=== PATIENT | male | born 1955 | race Caucasian/White ===

== ENCOUNTER 2016-06-03 00:56 | Inpatient (IN) | payer MEDICARE ==
[2016-06-03] VITALS (7 sets, daily range): BP systolic 154–167; BP diastolic 90–113
[~2016-06-03] VITALS: Ht 175.2 cm; Wt 124.4 kg
--- NOTE | ~2016-06-03 | DS ---
[place], [place] DISCHARGE SUMMARY NAME: WILDER NEELY UNIT #: [id number] ROOM: 526 DOCTOR: JENNIFER CHENG MD BIRTHDATE: [birth year] DOS: 06/07/2016 DIAGNOSES: 1. Small-bowel obstruction, resolved with conservative management. 2. History of laparotomy, colectomy and colostomy for diverticulitis. Colostomy has been reversed. 3. Major depression, moderate to severe. 4. Coronary artery disease of [place] coronary. 5. History of cerebrovascular accident in 2008. 6. Benign hypertension. 7. Parkinson's disease. 8. Degenerative joint disease. 9. Overactive bladder. 10. Chronic low back pain. MEDICATIONS: The same as on admission, no new prescriptions have been given. Lamictal 25 b.i.d., carbidopa/levodopa 25/250 t.i.d., cyclobenzaprine 10 twice a day, Plavix 75 daily, Pravachol 20 daily, lisinopril 20 daily, duloxetine 60 mg hs, Latuda 40, hydroxyzine 50 q.8h., vitamin D 50,000 units weekly, orphenadrine citrate 100 mg twice daily p.r.n. HOSPITAL COURSE: The patient is known to me from previous admissions, comes in with complaints of severe abdominal pain, nausea, emesis. Please refer H and P for details. After admission, the patient was placed on IV fluids, antibiotics, NG tube suctioning. Dr. Davey was consulted. He was continued NG suctioning for the next several days. His acute abdominal series has shown slow improvement in his obstruction. He has had a bowel movement yesterday after a suppository was given and he is no longer nauseous, abdominal pain has subsided. NG tube has since been discontinued and the patient continues to improve. He is going to be started on a regular diet this morning. If he tolerates the diet, he should be able to go home today and continue with home medication and follow with his PCP as an outpatient. [place], [place] DISCHARGE SUMMARY NAME: WILDER NEELY UNIT #: [id number] ROOM: 526 DOCTOR: JENNIFER CHENG MD BIRTHDATE: [birth year] JENNIFER CHENG MD CM:STEFAN [id number] JENNIFER CHENG MD 07/10/16 1436 interface
--- NOTE | ~2016-06-03 | PR ---
[place], [place] PROGRESS NOTE NAME: [id number] UNIT #: [id number] ROOM: 526 DOCTOR: JENNIFER CHENG MD BIRTHDATE: [birth year] DOS: 06/05/2016 SUBJECTIVE: The patient continues to have abdominal pain. His repeat acute abdominal series just continues to show small-bowel obstruction. OBJECTIVE: VITAL SIGNS: Graphic trend shows pressure of 154/87, pulse of 100, respirations 20, temperature 97.6. LUNGS: Diminished breath sounds, but clear. HEART: Regular. ABDOMEN: Obese, soft, diffuse tenderness. EXTREMITIES: Without any edema. Bowel sounds hypoactive. LABORATORY DATA: Showed a white cell count of 6.6, hemoglobin 15.2, hematocrit 44.2. BMP: Glucose of 84, BUN 13, creatinine 0.93. Electrolytes were normal. ASSESSMENT AND PLAN: 1. Small-bowel obstruction. The patient is on conservative management right now with NG suctioning. Discussed with Dr. Davey. If it does not open up by tomorrow morning, he plans to take him for surgery. 2. N.p.o. status. The patient is maintained on IV fluids. We will change the IV fluids and include some glucose also. 3. History of diverticulitis and colectomy, colostomy in the past, possible adhesions, which is resulting in the ileus. 4. Major depression, moderate to severe, already on medications to be continued. JENNIFER CHENG MD CM:PNTRANS [phone] JENNIFER CHENG MD 06/05/16 2344 interface
--- NOTE | ~2016-06-03 | WRIGHTHP ---
[place], [place] PATIENT HISTORY AND PHYSICAL EXAM NAME: WILDER NEELY [facility] #: [id number] UNIT #: [id number] ROOM: 526 DOCTOR: JENNIFER CHENG MD BIRTHDATE: [birth year] DOS: 06/03/2016 HISTORY OF PRESENT ILLNESS: The patient is 60 years old. The patient comes in with complaints of severe nausea and abdominal pain. The patient was last admitted to the hospital in 2015 to the Behavioral Health Unit with depression. The patient states that he ate 2 baloney sandwiches yesterday. He did not eat anything else. By evening, his abdomen was starting to get quite painful and he started having nausea, had a few emesis. The pain got worse and because of his previous surgery, he decided to come into the Emergency Room where he was evaluated and was found to have bowel obstruction and so he was admitted to the hospital. This morning does have some minimal abdominal discomfort, does not have any chest pains or palpitations, does not have any fever or chills, does not have any diarrhea. PAST MEDICAL HISTORY: Significant for, 1. History of laparotomy and colectomy for diverticulitis. He had a colostomy one time. 2. Major depression, moderate to severe with a hospitalization last year under Dr. Konstantin hatch [facility]. 3. Coronary artery disease of [place] coronaries. 4. History of CVA in 2008. 5. Benign hypertension. 6. Parkinson's disease. 7. Degenerative joint disease. 8. Overactive bladder. 9. Chronic low back pain. MEDICATIONS: Medications that he is on, this list is not a current list. The is supposed to bring the list, but he is on Plavix, duloxetine, hydroxyzine, Sinemet, Lamictal, lisinopril, Latuda, Pravachol. SOCIAL HISTORY: History of smoking. Denies using any alcohol. He lives at home with his . PHYSICAL EXAMINATION: GENERAL: He is awake and alert and oriented. VITAL SIGNS: Graphic shows a pressure of 154/96, pulse of 87, respirations 20, temperature 97.8. LUNGS: Diminished breath sounds. No wheezes, rales, or rhonchi heard. HEART: Regular. ABDOMEN: Obese, soft. Multiple scars from previous surgery present. Bowel sounds are hypoactive, but present. EXTREMITIES: Without any edema. LABORATORY AND DIAGNOSTIC DATA: His labs on admission: CT of the abdomen and pelvis shows dilated fluid-filled loops of small bowel. Comprehensive: Glucose of 123, BUN 21, creatinine 1.31. Electrolytes were normal. CK 1122. Chest x-ray shows no pulmonary disease. White cell count is 10.5, hemoglobin 16.9. Lactic acid 1.1. [place], [place] PATIENT HISTORY AND PHYSICAL EXAM NAME: WILDER NEELY UNIT #: [id number] ROOM: 526 DOCTOR: JENNIFER CHENG MD BIRTHDATE: [birth year] ASSESSMENT AND PLAN: 1. A 60-year-old presents with nausea, vomiting, and abdominal pain from small bowel obstruction. NG tube has been placed. The patient has been kept n.p.o., IV fluids have been ordered. A consultation with Dr. Davey has been obtained, most likely has adhesions from his previous surgeries resulting in the obstruction. 2. History of colectomy, colostomy in the past, possibly has adhesions. 3. Benign hypertension, not very well controlled. Clonidine patch will be started since he is n.p.o. 4. Major depression, moderate to severe with suicidal tendencies in the past. I will restart his Latuda and Cymbalta. 5. Renal insufficiency. GFR 56, possibly prerenal azotemia. IV fluids have been ordered, recheck the labs again tomorrow. 6. Elevated CKs of unknown etiology. We will hold off on the Pravachol for right now. JENNIFER CHENG MD CM:HISPHYS:PATIENT HISTORY AND PHYSICAL EXAMINATION [phone] JENNIFER CHENG MD 07/10/16 3448 interface
--- NOTE | ~2016-06-03 | PR ---
[place], [place] PROGRESS NOTE [id number] UNIT #: [id number] ROOM: 526 DOCTOR: JENNIFER CHENG MD BIRTHDATE: [birth year] DOS: 06/06/2016 SUBJECTIVE: The patient is continuing to have some minimal abdominal discomfort, but he did have a tight stenosis. The patient continues to have abdominal pain, but he did have a bowel movement and he is also having a lot of belching and burping this morning. OBJECTIVE: VITAL SIGNS: Blood pressure is 132/88, pulse of 76, respirations 20, temperature 98.5. LUNGS: Diminished breath sounds, clear. HEART: Regular. ABDOMEN: Obese, soft. Hypoactive bowel sounds. ASSESSMENT AND PLAN: 1. Small-bowel obstruction. The patient's pain medications were increased yesterday and he is going to have an acute abdominal series. Since he had a BM, it is possible that his small-bowel obstruction is improving and that we could discontinue the NG tube at that time. 2. Benign hypertension, not very well controlled because he is n.p.o. We had to give labetalol yesterday to control his pressure. Once NG tube is discontinued, we can start his home medications. JENNIFER CHENG MD CM:PNTRANS [id number] JENNIFER CHENG MD 06/07/16 0045 interface
--- NOTE | ~2016-06-03 | PR ---
[place], [place] PROGRESS NOTE NAME[id number] UNIT #: [id number] ROOM: 526 DOCTOR: JENNIFER CHENG MD BIRTHDATE: [birth year] DOS: SUBJECTIVE: The patient is doing fine without any complaints. He did have a bowel movement yesterday and continues to have flatulence. PHYSICAL EXAMINATION: VITAL SIGNS: Graphic trend shows a pressure of 127/86, pulse of 86, respirations 20, and temperature 98.8. LUNGS: Diminished breath sounds, clear. HEART: Regular. ABDOMEN: Soft, some minimal tenderness all over. EXTREMITIES: Without any edema. ASSESSMENT AND PLAN: Small-bowel obstruction, improved with conservative treatment plan. The patient's NG tube has been discontinued. We will start him on a diet this morning, and if he is able to tolerate it without any emesis we should be able to discharge him to home today. JENNIFER CHENG MD CM:PNTRANS 9 [phone] JENNIFER CHENG MD 06/07/161909 interface
--- NOTE | ~2016-06-03 | PR ---
[place], [place] PROGRESS NOTE [facility]: [id number] UNIT #: [id number] ROOM: 526 DOCTOR: JENNIFER CHENG MD BIRTHDATE: [birth year] DOS: SUBJECTIVE: The patient is doing fine without any complaints other than his abdominal pain. He does have some minimal nausea. He still has NG drainage. OBJECTIVE: VITAL SIGNS: Blood pressure is 132/90, pulse of 89, respirations 20, temperature 98.5. LUNGS: Diminished breath sounds. HEART: Regular. ABDOMEN: Soft, hypoactive bowel sounds. EXTREMITIES: Without any edema. ASSESSMENT AND PLAN: 1. Small bowel obstruction. Awaiting acute abdominal series this morning. If it looks better, we can discontinue the NG tube. Discussed with Dr. Davey and the patient 2. Benign hypertension. Pressures are running a little high, possibly from not taking his home medications. Because of his n.p.o. status, he is on clonidine patch. We will continue to monitor that. Routine labs to be ordered for tomorrow. JENNIFER CHENG MD CM:PNTRANS [id number] JENNIFER CHENG MD 07/10/16 1440 interface
[~2016-06-03 00:56] MED LIST: ALLOPURINOL300 MG PO; ANUCORT HC25 MG RC; AQUASOL E PO; ASPIR-LOW81 MG PO; ASPIRIN81 M1 PO; ATARAX,VISTARIL50 MG PO; ATIVAN0.5 MG PO; ATIVAN1 MG PO; B121000 MCG/1 IM; BRIN20TA PO; CARBIDOPA AND L1 TAB PO; CARBIDOPA PO; CIPRO XR500 MG PO; CIPRO500 MG PO; COLCHICINE0.6 MG PO; COREG12.5 MG PO; CYCLOBENZAPRINE10 MG PO; Clopidogrel75 MG PO; DIAZEPAM2 MG PO; DITROPAN5 MG PO; DIVALPROEX DR500 MG PO; DOXYCYCLINE100 M3 PO; DULOXETINE HCL60 MG PO; E-400400 IU PO; EXELON4.6 MG/24 TD; FLAGYL500 MG PO; FLEXERIL10 MG PO; HALDOL2 MG PO; HYDROCODONE BIT1 T11 PO; IMITREX25 MG PO; INDOCIN SR75 MG PO; LAMICTAL ODT25 MG PO; LAMICTAL ODT50 MG MM; LAMICTAL XR25 MG PO; LAMICTAL25 MG PO; LAMOTRIGINE100 MG PO; LAMOTRIGINE150 MG PO; LAMOTRIGINE200 MG PO; LATU120T PO; LATU40TA PO; LIPITOR10 MG PO; LIPITOR20 MG PO; LISINOPRIL20 MG PO; LISINOPRIL40 MG PO; LODOSYN25 MG PO; LOPRESSOR25 MG PO; LOPRESSOR50 MG PO; LORAZEPAM1 MG PO; MACROBID100 M1 PO; MEDROL DOSEPAK4 MG PO; METOPROLOL25 MG PO; MIRALAX17 GM/DOSE PO; MIRTAZAPINE PO; MIRTAZAPINE15 M1 PO; MIRTAZAPINE15 MG PO; MIRTAZAPINE45 MG PO; MOTRIN800 MG PO; MS CONTIN30 MG PO; NAPROXEN500 M1 PO; NORCO 325 MG-101 TAB PO; OMEPRAZOLE40 MG PO; OXYBUTYNIN CHLOR5 MG PO; OXYBUTYNIN5 MG PO; Orphenadrine C100 MG PO; PANTOPRAZOLE40 M1 PO; PERPHENAZINE4 MG PO; PHENOBARBITAL15 MG PO; PHENOBARBITAL30 MG PO; PLAVIX75 MG PO; PRAVACHOL10 MG PO; PRAVASTATIN SOD20 MG PO; PREDNISONE10 MG PO; REMERON30 MG PO; SALINE MIST 4444 ML NS; SEROQUEL XR50 MG PO; SIMVASTATIN40 MG PO; SIMVASTATIN80 MG PO; SINEMET 25-1001 TA1 PO; TOVIAZ4 MG PO; TRAMADOL HCL50 MG PO; TRAMADOL50 MG PO; TRUSOPT 5 ML5 ML OPH; TYLENOL 8 HOUR650 MG PO; ULTRAM50 MG PO; VALIUM10 MG PO; VALIUM2 MG PO; VASOTEC10 MG PO; VICO75300 PO; VITAMIN D2000 IU PO; VITAMIN D50000 I2 PO; VITAMIN D50000 I3 PO; XALATAN 0.005%2.5 ML INTRAOC; ZESTRIL,PRINIVIL5 MG PO; ZOFRAN ODT8 MG PO; [UNRECOGNIZED DRUG - OTHER] PO
[2016-06-03 01:27] LABS: BASO % 0.4 % (0.0-1.0); EOS # 0.2 10*3/uL (0.0-0.4); EOS % 1.8 % (1.0-4.0); HEMATOCRIT 48.5 % (42.0-52.0); HEMOGLOBIN 16.9 g/dl (14.0-18.0); LYMPH # 1.5 10*3/uL (1.3-4.4); LYMPH % 13.8 % (27.0-41.0); MEAN CELL VOLUME 85.5 fl (80.0-94.0); MEAN CORPUSCULAR HGB 29.8 pg (27.0-31.0); MEAN CORPUSCULAR HGB CONC 34.8 g/dl (33.0-37.0); MEAN PLATELET VOLUME 9.3 fl (9.6-12.3); MONO # 0.9 10*3/uL (0.1-1.0); MONO % 8.5 % (3.0-9.0); NEUT # 7.9 10*3/uL (2.3-7.9); NEUT % 75.1 % (47.0-73.0); PLATELET COUNT AUTOMATED 244 10*3/uL (130-400); RED BLOOD COUNT 5.67 10*6/uL (4.50-5.90); RED CELL DISTRI WIDTH 12.8 % (0-14.5); WHITE BLOOD COUNT 10.5 10*3/uL (4.8-10.8)
[2016-06-03 01:40] LABS: PROTHROMBIN TIME 10.2 SECONDS (9.0-12.4)
[2016-06-03 01:55] LABS: ALBUMIN 4.3 gm/dl (3.1-4.5); ALKALINE PHOSPHATASE 68 U/L (45-117); BILIRUBIN, TOTAL 0.5 mg/dl (0.2-1.0); BUN 21 mg/dl (7-24); C-REACTIVE PROTEIN 0.88 MG/DL (0-0.3); CARBON DIOXIDE 26 mmol/L (21-32); CHLORIDE 105 mmol/L (98-107); CKMB 4.9 ng/ml (0.5-3.6); CPK 1122 U/L (39-308); EST GLOM FILT AFRICAN AMERICAN > 60 ml/min; GLUCOSE 123 mg/dL (65-99); MAGNESIUM 2.1 mg/dL (1.5-2.1); SGOT/AST 25 IU/L (3-35); SGPT/ALT 27 U/L (12-78); SODIUM 140 mmol/L (136-145); TOTAL PROTEIN 8.1 gm/dL (6.4-8.2); TROPONIN I < 0.015 ng/ml (<0.5)
[2016-06-03 02:29] LABS: BILIRUBIN NEGATIVE (NEGATIVE); BLOOD TRACE-INTACT (NEGATIVE); CLARITY CLEAR (CLEAR); COLOR YELLOW (YELLOW); GLUCOSE NEGATIVE (NEGATIVE); KETONE TRACE (NEGATIVE); LEUKO ESTERASE NEGATIVE (NEGATIVE); NITRITE NEGATIVE (NEGATIVE); PH 5.5 (5.0-9.0); PROTEIN NEGATIVE (NEGATIVE)
[2016-06-03 02:39] LABS: BACTERIA 2+; URINE REFLEX COMMENT YES (NO)
[2016-06-04] VITALS: BP 132/90
[2016-06-04 12:00] VITALS: BP 162/98
[2016-06-04 16:00] VITALS: BP 160/92
[2016-06-05] VITALS: BP 154/87
[2016-06-05 06:35] LABS: BASO % 0.5 % (0.0-1.0); EOS # 0.4 10*3/uL (0.0-0.4); EOS % 5.5 % (1.0-4.0); HEMATOCRIT 44.2 % (42.0-52.0); HEMOGLOBIN 15.2 g/dl (14.0-18.0); LYMPH # 1.4 10*3/uL (1.3-4.4); LYMPH % 21.1 % (27.0-41.0); MEAN CORPUSCULAR HGB 29.9 pg (27.0-31.0); MEAN CORPUSCULAR HGB CONC 34.4 g/dl (33.0-37.0); MEAN PLATELET VOLUME 9.4 fl (9.6-12.3); MONO # 0.6 10*3/uL (0.1-1.0); NEUT # 4.2 10*3/uL (2.3-7.9); NEUT % 63.6 % (47.0-73.0); PLATELET COUNT AUTOMATED 208 10*3/uL (130-400); RED BLOOD COUNT 5.08 10*6/uL (4.50-5.90); RED CELL DISTRI WIDTH 12.6 % (0-14.5); WHITE BLOOD COUNT 6.6 10*3/uL (4.8-10.8)
[2016-06-05 07:08] LABS: BUN 13 mg/dl (7-24); CARBON DIOXIDE 28 mmol/L (21-32); CHLORIDE 106 mmol/L (98-107); EST GLOM FILT AFRICAN AMERICAN > 60 ml/min; GLUCOSE 84 mg/dL (65-99); SODIUM 142 mmol/L (136-145)
[2016-06-05 08:00] VITALS: BP 154/88
[2016-06-05 12:00] VITALS: BP 150/88
[2016-06-05 20:26] VITALS: BP 160/110
[2016-06-06] VITALS: BP 157/94
[2016-06-06 08:00] VITALS: BP 132/88
[2016-06-06 16:00] VITALS: BP 160/68
[2016-06-06 16:58] VITALS: BP 140/80
[2016-06-06 20:00] VITALS: BP 158/102
[2016-06-06 20:57] VITALS: BP 139/93
[2016-06-07] VITALS: BP 127/86
[2016-06-07 08:00] VITALS: BP 140/90
== END 2016-06-07 15:14 | disposition home or self-care (01) | DRG 388 ==
LOC: ED 00:56 → 5E 02:31 → EDHOLD 02:31 → 5E 03:03
PROVIDERS: Emergency Medicine; Internal Medicine
DX: K56.60 Unspecified intestinal obstruction (principal); N17.0 Acute kidney failure with tubular necrosis; F32.2 Major depressive disorder, single episode, severe without psychotic features; I10 Essential (primary) hypertension; G20 Parkinson's disease; M19.90 Unspecified osteoarthritis, unspecified site; F17.200 Nicotine dependence, unspecified, uncomplicated; I25.10 Atherosclerotic heart disease of native coronary artery without angina pectoris; G89.29 Other chronic pain; M54.5 Low back pain; N32.81 Overactive bladder; Z90.49 Acquired absence of other specified parts of digestive tract; Z93.3 Colostomy status; Z82.49 Family history of ischemic heart disease and other diseases of the circulatory system; Z83.3 Family history of diabetes mellitus; Z80.9 Family history of malignant neoplasm, unspecified; Z88.8 Allergy status to other drugs, medicaments and biological substances; Z88.6 Allergy status to analgesic agent; Z79.899 Other long term (current) drug therapy; Z91.041 Radiographic dye allergy status; Z86.73 Personal history of transient ischemic attack (TIA), and cerebral infarction without residual deficits

== ENCOUNTER 2016-06-08 22:33 | Emergency (ER) | payer MEDICARE ==
[~2016-06-08] VITALS: Ht 175.2 cm; Wt 119.3 kg
[2016-06-08 23:00] LABS: BASO % 0.4 % (0.0-1.0); EOS # 0.4 10*3/uL (0.0-0.4); EOS % 4.4 % (1.0-4.0); HEMATOCRIT 45.9 % (42.0-52.0); HEMOGLOBIN 15.9 g/dl (14.0-18.0); LYMPH # 2.6 10*3/uL (1.3-4.4); LYMPH % 31.5 % (27.0-41.0); MEAN CELL VOLUME 86.8 fl (80.0-94.0); MEAN CORPUSCULAR HGB 30.1 pg (27.0-31.0); MEAN CORPUSCULAR HGB CONC 34.6 g/dl (33.0-37.0); MEAN PLATELET VOLUME 9.1 fl (9.6-12.3); MONO # 0.7 10*3/uL (0.1-1.0); MONO % 8.2 % (3.0-9.0); NEUT # 4.5 10*3/uL (2.3-7.9); NEUT % 55.1 % (47.0-73.0); PLATELET COUNT AUTOMATED 225 10*3/uL (130-400); RED BLOOD COUNT 5.29 10*6/uL (4.50-5.90); RED CELL DISTRI WIDTH 12.6 % (0-14.5); WHITE BLOOD COUNT 8.1 10*3/uL (4.8-10.8)
[2016-06-08 23:23] LABS: ALBUMIN 3.8 gm/dl (3.1-4.5); ALKALINE PHOSPHATASE 67 U/L (45-117); BILIRUBIN, DIRECT 0.1 mg/dL (0.0-0.2); BILIRUBIN, TOTAL 0.3 mg/dl (0.2-1.0); BUN 18 mg/dl (7-24); CARBON DIOXIDE 26 mmol/L (21-32); CHLORIDE 105 mmol/L (98-107); EST GLOM FILT AFRICAN AMERICAN > 60 ml/min; GLUCOSE 105 mg/dL (65-99); POTASSIUM 3.7 mmol/L (3.5-5.1); SGOT/AST 34 IU/L (3-35); SGPT/ALT 55 U/L (12-78); SODIUM 140 mmol/L (136-145); TOTAL PROTEIN 7.9 gm/dL (6.4-8.2)
[2016-06-09 01:54] VITALS: BP 158/96
[2016-06-09] MEDS ORDERED: MIRALAX POWDER17 G1 PO ×2 (01:55→02:13)
[2016-06-09] MEDS ORDERED: BENTYL10 MG PO ×2 (02:03→02:13)
== END 2016-06-09 02:12 | disposition home or self-care (01) ==
LOC: ED 22:33
PROVIDERS: Emergency Medicine
DX: R10.84 Generalized abdominal pain (principal); F32.9 Major depressive disorder, single episode, unspecified; M10.9 Gout, unspecified; I10 Essential (primary) hypertension; M54.5 Low back pain; G89.29 Other chronic pain; E78.5 Hyperlipidemia, unspecified; K21.9 Gastro-esophageal reflux disease without esophagitis; F12.10 Cannabis abuse, uncomplicated; G20 Parkinson's disease; G40.909 Epilepsy, unspecified, not intractable, without status epilepticus; Z88.6 Allergy status to analgesic agent; Z88.8 Allergy status to other drugs, medicaments and biological substances; Z91.041 Radiographic dye allergy status; Z79.899 Other long term (current) drug therapy

== ENCOUNTER 2016-07-27 16:16 | Inpatient (IN) | payer MEDICARE ==
--- NOTE | ~2016-07-27 | WRIGHTHP ---
[place], [place] PATIENT HISTORY AND PHYSICAL EXAM NAME: WILDER NEELY UNIT #: [id number] ROOM: 314 DOCTOR: HOLGER VUONG BIRTHDATE: [birth year] DOS: 07/28/2016 HISTORY OF PRESENT ILLNESS: This is a 60-year-old male known to us. He does see Dr. Flores as an outpatient. He had been in the hospital several times recently most recent Emergency Room after a fall. When he was being getting ready to be discharged he told them that he was having suicidal and homicidal thoughts and that [facility]. On the day of admission, the patient stated that he felt fine, but he also stated that he had not been taking these medications for about a month, except for the Latuda and he had not seen his doctor in several months. The patient was admitted to behavioral health unit to rule out organic factors and stabilize on medications. PAST MEDICAL HISTORY: Includes hypertension, major depression, recurrent, severe cerebrovascular accident, Parkinson disease, coronary artery disease. DIAGNOSIS: Bipolar disorder. MENTAL STATUS: The patient is alert and oriented to person, place and time. No overt signs of auditory or visual hallucinations, delusions, paranoia, nathaly or hypomania. It should be noted, however, the patient states that he has been having hallucinations, auditory and visual for the past week, which contradicts what he told the Emergency Room doctor where he was not having them, but he was suicidal and homicidal. The patient denies being homicidal or suicidal with me this morning states he slept very well. He did was require to take a shower because he was quite odorous and not clean, so he did take the shower as asked. PLAN: We have the patient started on Remeron 15 mg at bedtime to help with depression and sleep. We also have him on Latuda 80 mg every day to help with his bipolar and treatment resistant depression as well. Currently denying homicidal or suicidal thoughts, but stating that he is having auditory and visual hallucinations for the last week, so we will continue to monitor him engage in individual and lew milieu therapy what is going on with him and discharge once stable. [place], [place] PATIENT HISTORY AND PHYSICAL EXAM NAME: WILDER NEELY UNIT #: [id number] ROOM: 314 DOCTOR: HOLGER VUONG BIRTHDATE: [birth year] SHANTELLE VUONG CNP CM:PHYS:PATIENT HISTORY AND PHYSICAL EXAMINATION 6 HOLGER VUONG 07/28/16916 interface
--- NOTE | ~2016-07-27 | PR ---
[place], [place] PROGRESS NOTE [id number] UNIT #: [id number] ROOM: 314 DOCTOR: JENNIFER CHENG MD BIRTHDATE: [birth year] DOS: SUBJECTIVE: The patient complains of back pain and wants something for that. He does not have any complaints of chest pains, palpitations, shortness of breath. He does state that he is anxious and sometimes jittery. PHYSICAL EXAMINATION: VITAL SIGNS: Blood pressure is 133/77, pulse of 92, respirations 18, temperature 97.5. LUNGS: Diminished breath sounds, clear. HEART: Regular. ABDOMEN: Obese, soft, nontender. EXTREMITIES: Without any edema. ASSESSMENT AND PLAN: 1. Benign hypertension, controlled. 2. Major depression, severe, recurrent, with suicidal and homicidal tendencies being managed by Dr. Pryor. 3. Generalized anxiety disorder, on medications. 4. History of seizure disorder. The patient has not taken any medicines for several months and he has not had any seizures, so there is no reason to restart his medications. 5. Back pain. The patient states that he has chronic L3-L4 osteoarthritis and we will prescribe medications for that today. JENNIFER CHENG MD CM:PNTRANS [phone] JENNIFER CHENG MD 07/30/16 1049 interface
--- NOTE | ~2016-07-27 | PR ---
[place], [place] PROGRESS NOTE NAME: [facility] NEELY [id number] UNIT #: [id number] ROOM: 314 DOCTOR: HOLGER VUONG BIRTHDATE: [birth year] DOS: 07/30/2016 CHIEF COMPLAINT: "Good morning." SUMMARY OF VISIT: The patient was assessed in the dining room where he engaged readily in conversation. His biggest complaint is that he just feels nervous and anxious inside and it is constant and it is difficult for him to have a good night sleep and concentrate because of this. I discussed his medications with him. He does feel that last night was a little bit better, but he feels that he is constantly battling this anxiety and agitation. MENTAL STATUS EXAMINATION: Alert and oriented to person, place and approximate to time. No overt signs of auditory or visual hallucinations, delusions, paranoia, nathaly or hypomania. PLAN: I discussed again his medications at length with him. I am going to increase the Latuda, but then I am going to change the Vistaril and instead of q.4 hour p.r.n., I am making it q.8 hours p.r.n. and I am scheduling him Vistaril 3 times a day to see if we can help get ahead of this anxiety, etc. He does not like the Ativan, I will leave it p.r.n., but he feels that it is addictive and that it is too strong in his system. He is also receiving Remeron 15 mg at bedtime to help with sleep, appetite and depression. So, the main change today is bumping up the Latuda and adding scheduled Vistaril. I will monitor. I do not want him sleeping and too tired. I can always adjust that back down, but let us see if we can get ahead of the anxiety and agitation and get him feeling better since this is what he is fixated on right now. We will continue to try to engage in individual and lew milieu therapy with the plan to discharge once stable. SHANTELLE VUONG CNP CM:PNTRANS [phone] HOLGER VUONG 07/30/16 1719 interface
--- NOTE | ~2016-07-27 | PR ---
[place], [place] PROGRESS NOTE [id number] UNIT #: [id number] ROOM: 314 DOCTOR: HOLGER VUONG BIRTHDATE: [birth year] DOS: 07/29/2016 SUMMARY OF VISIT: The patient was assessed in the dining room where he engaged in conversation. He stated that his sleep was a little bit disrupted last night, that he had a bad dream, but that he was able to go back to sleep. He also states that he is concerned that his Parkinson's is acting up. I advised him that I would talk to the hospitalist and see if they wanted to adjust his Sinemet or anything at this point in time. MENTAL STATUS: He is alert and oriented to person, place and approximate to time. No overt signs of auditory or visual hallucinations, delusions, paranoia, nathaly or hypomania. PLAN: The patient did sleep most of the night per nursing. Good appetite. He seems to be responding well to the Latuda. No voiced complaints other than that. We will continue to monitor. I discussed his situation with nursing with regards to nightmare and I did advise him that if that happens again this evening, to notify the nurses that we know what is going on and we can help if we need to. The patient is agreeable. SHANTELLE VUONG CNP CM:PNTRANS [phone] HOLGER VUONG 07/29/16 1003 interface
--- NOTE | ~2016-07-27 | PR ---
[place], [place] PROGRESS NOTE NAME: WILDER NEELY UNIT #: [id number] ROOM: 314 DOCTOR: ABDIAS PERALTA MD BIRTHDATE: [birth year] DOS: 07/31/2016 INTERVAL NOTE CHIEF COMPLAINT: "I am still having hallucinations and waking up in the middle of the night." SUMMARY OF THE VISIT: The patient was interviewed in the dining area. He reports that his current medicines are working for him slightly better, although he did report that he continues to have flashbacks of his brother and hears voices that were intensified this last evening waking him up. He was frightened by the voices and feels very uneasy because of them. He reports that the voices are persistent even during the day. He convincingly denies medication side effects. MENTAL STATUS: He is alert and oriented to person, place, and time. Mood does seem to be trending towards euthymia. Affect is more appropriate. He does endorse positive psychotic symptoms and positive anxiety. Memory is relatively well intact. He is exhibiting no side effects from the medicines themselves and I see no tardive or extrapyramidal symptoms. PLAN: I will increase his Latuda further from 120 mg at bedtime to 160 mg at bedtime maintaining his Atarax and his Remeron as they are currently prescribed. Continue to engage in individual and lew milieu activity with the plan to return home when psychiatrically stable. ABDIAS PREALTA MD CM:PNTRANS [id number] ABDIAS PERALTA MD 07/31/16 1046 interface
--- NOTE | ~2016-07-27 | CON ---
[place], [place] REPORT OF CONSULTATION [id number] UNIT #: [id number] ROOM: 314 DOCTOR: JENNIFER CHENG MD BIRTHDATE: [birth year] DOS: 07/28/2016 HISTORY OF PRESENT ILLNESS: The patient is 60-year-old. The patient usually sees Dr. Kebede as an outpatient. I have seen him a couple of times during his previous hospitalizations. The patient comes to the Emergency Room after a fall. At that time, he was about to be discharged, he told them that he has had suicidal and homicidal thoughts, and [facility]. This morning, the patient feels fine, he does not have any complaints of headaches, dizziness, lightheadedness, does not have any chest pains or shortness of breath. He has not taken any of his medications for about a month, except for his Latuda, and he has not seen Dr. Kebede for few months now. PAST MEDICAL HISTORY: Significant for: 1. Benign hypertension, last hospitalization in 05/2016 with a small-bowel obstruction. 2. History of laparotomy, colectomy, colostomy for diverticulitis. 3. Major depression, moderate to severe. 4. History of cerebrovascular accident. 5. Parkinson's disease. 6. History of coronary artery disease. He was on Pravachol, Plavix, lisinopril, carbidopa and levodopa, duloxetine, Latuda, hydroxyzine, cyclobenzaprine, and Lamictal in the past, but he has not taken any of his medications for about more than a month. PHYSICAL EXAMINATION: GENERAL: He is awake and alert and oriented, pleasant, in no distress. VITAL SIGNS: Graphic trend shows a pressure 160/102, pulse of 84, respirations 18, temperature 98.4. LUNGS: Diminished breath sounds. No wheezes, rales or rhonchi heard. HEART: Regular. ABDOMEN: Obese, soft, nontender. EXTREMITIES: Without any edema. Awake and alert and oriented with no neurological deficits. He is ambulatory, does have some minimal tenderness across the lumbar spine. LABORATORY DATA: X-rays of the lumbar spine showed osteoarthritis with spinal stenosis. White blood cell count was noted 8.0, hemoglobin 15.9. BMP: Glucose 86, BUN 9, creatinine 1.03. Electrolytes were normal. Urine drug screen showed THC. ASSESSMENT AND PLAN: 1. This is a 60-year-old who presents with homicidal and suicidal thoughts, has been admitted to Behavioral Health Unit under Dr. Pryor service. He has bipolar disorder as well as moderate to severe major depression. He has not taken any medications. He will be admitted for medication adjustments. 2. Benign hypertension, poorly controlled, possibly from lack of meds. We will restart some of his home meds. We do not have the complete list of meds going with his previous discharge summary in May. 3. Recent fall. The patient states that he staggers around when he walks. [place], [place] REPORT OF CONSULTATION NAME: WILDER NEELY UNIT #: [id number] ROOM: 314 DOCTOR: JENNIFER CHENG MD BIRTHDATE: [birth year] JENNIFER CHENG MD CM:CONSTR:REPORT OF CONSULTATION 7 07/28/16 0744 interface
--- NOTE | ~2016-07-27 | DS ---
[place], [place] DISCHARGE SUMMARY [id number] UN[facility] #: [id number] ROOM: 314 DOCTOR: ABDIAS PERALTA MD BIRTHDATE: [birth year] DOS: 08/02/2016 CHIEF COMPLAINT: "I am just so depressed, I am not sleeping and the voices are driving me crazy." HISTORY OF PRESENT ILLNESS: This is a 60-year-old white male who is known to me from a previous psychiatric admission here. He presents to the Emergency Room after a fall when he was about to be discharged from the Emergency Room. He did then convey that he was having both suicidal and homicidal thoughts. 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 He also noted anergia, anhedonia, hopeless, helpless feelings, crying spells. He did verbalize that he was also having significant auditory hallucinations to the point where the voices even woke him up at night. He is admitted now to rule out any organic factors and attempt to restabilize on medication. PAST MEDICAL HISTORY: Remarkable for hypertension, CVA, Parkinson's disease, coronary artery disease, and major depression, recurrent. SUMMARY OF HOSPITAL COURSE: The patient was admitted to the unit where he had his Cymbalta discontinued and was started on Remeron 15 mg at bedtime. His dose of Latuda was increased from 60-80-120 and then ultimately stabilized at 160 mg at bedtime. He was given Vistaril straight and p.r.n. for anxiety. Attempts were done to avoid any addicting agent with the combination of the Remeron, the Latuda, and the Vistaril. He improved dramatically. Sleep and appetite normalized, energy improved. He was able to engage in all activities on the unit well. He denied suicidal thoughts, homicidal thoughts, or any self-injurious thoughts as well as denying any medication side effects. He was voicing positive plans for the future and was ready for discharge with followup planned at the [facility]. MENTAL STATUS AT DISCHARGE: He was alert and oriented to person, place, and time. Mood was euthymic. Affect appropriate. There was no nathaly or hypomania. There were no overt auditory or visual hallucinations. No delusions were present. Short, intermediate, and long-term memory were intact. FINAL DIAGNOSES: Bipolar type 1, mixed, with psychotic features and posttraumatic stress disorder. PLAN: All of his prescriptions have been escribed to [facility]. He will have followup at the [facility] in [place]. [place], [place] DISCHARGE SUMMARY NAME: WILDER NEELY [place] UNIT #: [id number] ROOM: [facility] DOCTOR: ABDIAS PERALTA MD BIRTHDATE: [birth year] ABDIAS PERALTA MD CM:DISCHRANDY [id number] ABDIAS PERALTA MD 08/02/16 1001 interface
[~2016-07-27 16:16] MED LIST changes: +BENTYL10 MG PO; +MIRALAX POWDER17 G1 PO
[2016-07-27 18:00] VITALS: BP 158/92
[2016-07-27 18:41] VITALS: BP 158/92
[2016-07-27 20:35] VITALS: BP 160/102
[2016-07-28 07:03] LABS: BASO % 0.3 % (0.0-1.0); EOS # 0.3 10*3/uL (0.0-0.4); EOS % 4.4 % (1.0-4.0); HEMATOCRIT 47.2 % (42.0-52.0); HEMOGLOBIN 16.3 g/dl (14.0-18.0); LYMPH % 33.3 % (27.0-41.0); MEAN CELL VOLUME 86.9 fl (80.0-94.0); MEAN CORPUSCULAR HGB CONC 34.5 g/dl (33.0-37.0); MEAN PLATELET VOLUME 9.1 fl (9.6-12.3); MONO # 0.6 10*3/uL (0.1-1.0); MONO % 9.7 % (3.0-9.0); NEUT # 3.1 10*3/uL (2.3-7.9); PLATELET COUNT AUTOMATED 214 10*3/uL (130-400); RED BLOOD COUNT 5.43 10*6/uL (4.50-5.90); RED CELL DISTRI WIDTH 13.5 % (0-14.5); WHITE BLOOD COUNT 5.9 10*3/uL (4.8-10.8)
[2016-07-28 07:35] LABS: ALBUMIN 3.7 gm/dl (3.1-4.5); ALKALINE PHOSPHATASE 67 U/L (45-117); BILIRUBIN, TOTAL 0.6 mg/dl (0.2-1.0); BUN 13 mg/dl (7-24); CARBON DIOXIDE 26 mmol/L (21-32); CHLORIDE 103 mmol/L (98-107); CHOLESTEROL 208 mg/dL (<200); EST GLOM FILT AFRICAN AMERICAN > 60 ml/min; GLUCOSE 94 mg/dL (65-99); HDL CHOLESTEROL 43 mg/dl (40-60); LDL CHOLESTEROL 115 mg/dL (9-159); POTASSIUM 3.9 mmol/L (3.5-5.1); SGOT/AST 28 IU/L (3-35); SGPT/ALT 39 U/L (12-78); SODIUM 140 mmol/L (136-145); TOTAL PROTEIN 7.7 gm/dL (6.4-8.2); TRIGLYCERIDES 248 mg/dl (<150); VLDL CHOLESTEROL 50 mg/dL (6-40)
[2016-07-28 07:49] LABS: HEMOGLOBIN A1c 5.6 % (4.8-5.6)
[2016-07-28 08:11] LABS: FOLIC ACID 15.48 ng/mL (>5.38); VITAMIN D, 25-HYDROXY 20.8 ng/mL (30-100)
[2016-07-28 08:49] VITALS: BP 148/89
[2016-07-28 20:35] VITALS: BP 137/86
[2016-07-29 08:10] VITALS: BP 140/89
[2016-07-29 20:07] VITALS: BP 105/68
[2016-07-30 08:24] VITALS: BP 133/77
[2016-07-30 20:12] VITALS: BP 154/92
[2016-07-31 08:08] VITALS: BP 125/88
[2016-07-31 20:00] VITALS: BP 132/86
[2016-08-01 08:21] VITALS: BP 133/84
[2016-08-01 20:46] VITALS: BP 130/90
[2016-08-02 08:23] VITALS: BP 131/80
[2016-08-02] MEDS ORDERED: HYDROXYZINE PAM25 M1 PO (08:33)
[2016-08-02] MEDS ORDERED: VITAMIN D50000 I3 PO (08:33)
[2016-08-02] MEDS ORDERED: MIRTAZAPINE15 M2 PO (08:33)
[2016-08-02] MEDS ORDERED: LATU80TA PO (08:33)
[2016-08-02] MEDS ORDERED: CARBIDOPA AND L1 TAB PO (09:22)
[2016-08-02] MEDS ORDERED: CLOPIDOGREL75 MG PO (09:22)
[2016-08-02] MEDS ORDERED: AMLODIPINE BESYL5 MG PO (09:22)
[2016-08-02] MEDS ORDERED: LISINOPRIL20 MG PO (09:22)
[2016-08-02] MEDS ORDERED: SIMVASTATIN20 MG PO (09:22)
== END 2016-08-02 14:30 | disposition home or self-care (01) | DRG 885 ==
LOC: 3N 16:16
PROVIDERS: Psychiatry & Neurology Psychiatry
DX: F31.64 Bipolar disorder, current episode mixed, severe, with psychotic features (principal); G20 Parkinson's disease; R45.851 Suicidal ideations; F23 Brief psychotic disorder; I10 Essential (primary) hypertension; I25.10 Atherosclerotic heart disease of native coronary artery without angina pectoris; F41.1 Generalized anxiety disorder; G40.909 Epilepsy, unspecified, not intractable, without status epilepticus; M47.896 Other spondylosis, lumbar region; M51.37 Other intervertebral disc degeneration, lumbosacral region; F43.10 Post-traumatic stress disorder, unspecified; E66.9 Obesity, unspecified; R45.850 Homicidal ideations; Z91.81 History of falling; Z86.73 Personal history of transient ischemic attack (TIA), and cerebral infarction without residual deficits

== ENCOUNTER 2016-08-08 21:07 | Emergency (ER) | payer MEDICARE ==
[~2016-08-08] VITALS: Ht 154.9 cm; Wt 117.9 kg
[~2016-08-08 21:07] MED LIST changes: +AMLODIPINE BESYL5 MG PO; +CLOPIDOGREL75 MG PO; +HYDROXYZINE PAM25 M1 PO; +LATU80TA PO; +MIRTAZAPINE15 M2 PO; +SIMVASTATIN20 MG PO
[2016-08-08 22:24] LABS: BASO % 0.5 % (0.0-1.0); EOS # 0.3 10*3/uL (0.0-0.4); HEMATOCRIT 41.2 % (42.0-52.0); HEMOGLOBIN 14.8 g/dl (14.0-18.0); LYMPH # 2.3 10*3/uL (1.3-4.4); LYMPH % 29.1 % (27.0-41.0); MEAN CELL VOLUME 84.8 fl (80.0-94.0); MEAN CORPUSCULAR HGB 30.5 pg (27.0-31.0); MEAN CORPUSCULAR HGB CONC 35.9 g/dl (33.0-37.0); MONO # 0.8 10*3/uL (0.1-1.0); MONO % 9.7 % (3.0-9.0); NEUT # 4.5 10*3/uL (2.3-7.9); NEUT % 56.2 % (47.0-73.0); PLATELET COUNT AUTOMATED 233 10*3/uL (130-400); RED BLOOD COUNT 4.86 10*6/uL (4.50-5.90)
[2016-08-08 22:36] LABS: BUN 9 mg/dl (7-24); CARBON DIOXIDE 28 mmol/L (21-32); CHLORIDE 108 mmol/L (98-107); EST GLOM FILT AFRICAN AMERICAN > 60 ml/min; GLUCOSE 109 mg/dL (65-99); POTASSIUM 4.1 mmol/L (3.5-5.1); SODIUM 145 mmol/L (136-145)
[2016-08-08 22:50] LABS: BILIRUBIN NEGATIVE (NEGATIVE); BLOOD NEGATIVE (NEGATIVE); CLARITY CLEAR (CLEAR); COLOR YELLOW (YELLOW); GLUCOSE NEGATIVE (NEGATIVE); KETONE NEGATIVE (NEGATIVE); LEUKO ESTERASE NEGATIVE (NEGATIVE); NITRITE NEGATIVE (NEGATIVE); PH 7.5 (5.0-9.0); PROTEIN NEGATIVE (NEGATIVE); UROBILINOGEN 0.2 E.U./dl (0.2-1.0)
[2016-08-08 22:59] LABS: EPITHELIAL CELLS 0-5; URINE AMPHETAMINES < 1000 (1000ng/ml); URINE BARBITURATES < 200 (200ng/ml); URINE COCAINE < 300 (300ng/ml); URINE REFLEX COMMENT NO (NO)
[2016-08-09 08:10] VITALS: BP 145/80
== END 2016-08-09 14:59 | disposition home health service (06) ==
LOC: ED 21:07
PROVIDERS: Emergency Medicine Emergency Medical Services
DX: F33.3 Major depressive disorder, recurrent, severe with psychotic symptoms (principal); M19.90 Unspecified osteoarthritis, unspecified site; I10 Essential (primary) hypertension; K21.9 Gastro-esophageal reflux disease without esophagitis; E78.5 Hyperlipidemia, unspecified; G89.29 Other chronic pain; M54.5 Low back pain; Z86.73 Personal history of transient ischemic attack (TIA), and cerebral infarction without residual deficits; F17.200 Nicotine dependence, unspecified, uncomplicated; Z88.6 Allergy status to analgesic agent; Z88.8 Allergy status to other drugs, medicaments and biological substances; Z91.041 Radiographic dye allergy status; Z79.899 Other long term (current) drug therapy

== ENCOUNTER 2016-08-09 15:01 | Inpatient (IN) | payer MEDICARE ==
[~2016-08-09] VITALS: Ht 175.2 cm; Wt 121.6 kg
--- NOTE | ~2016-08-09 | WRIGHTHP ---
[place], [place] PATIENT HISTORY AND PHYSICAL EXAM NAME: WILDER NEELY [facility] #: [id number] UNIT #: [id number] ROOM: 315 DOCTOR: JENNIFER CHENG MD BIRTHDATE: [birth year] DOS: 08/09/2016 HISTORY OF PRESENT ILLNESS: The patient is 60 years old, very well known to us from multiple admissions to the hospital. He states that he has been doing poorly after he left the hospital. He went to the [facility] and given a lot of medications. He said the [facility] medicines did not really help. It actually interacted with his other medications and he was found wandering around at night in the middle of the night outside his house. He says he is not exactly sure how he ended up outside in the middle of the road at night. So, they brought him to the Emergency Room and he was admitted to the hospital for stabilization. He does not have any complaints right now. He has chronic back pain, but states that his muscle relaxants do help. Denies having any chest pains or palpitations. Does not have any fever or chills. Does not have any abdominal pain, nausea, any emesis. PAST MEDICAL HISTORY: Significant for: 1. Severe depression, major, recurrent, for which he was hospitalized a few days ago with suicidal intentions. 2. Benign hypertension. 3. History of cerebrovascular accident. 4. Coronary artery disease. 5. History of laparotomy, colectomy, colostomy for diverticulitis and reversal of colostomy. 6. Parkinson's disease. 7. History of seizures, none for the last several years. 8. Degenerative joint disease. 9. Overactive bladder. MEDICATIONS: He is currently on are amlodipine 5 daily, carbidopa/levodopa 25/250 three times a day, Plavix 75 daily, Flexeril 10 twice a day p.r.n., Bentyl 10 q.i.d. p.r.n., vitamin D 50,000 units a week, hydroxyzine 50 t.i.d., Lamictal 25 b.i.d., lisinopril 20 daily, Latuda 160 daily, Remeron 15 at bedtime, Pravachol 20 daily. SOCIAL HISTORY: Nonsmoker. Does not use any alcohol. PHYSICAL EXAMINATION: GENERAL: He is awake and alert and oriented, in no major distress this morning. VITAL SIGNS: Graphic trend shows a pressure of 117/74, pulse of 75, respirations 18, temperature 98.0. LUNGS: Diminished breath sounds. No wheezes, rales, or rhonchi heard. HEART: Regular. ABDOMEN: Obese, soft. EXTREMITIES: Without any edema. NEUROLOGICAL: No neurological deficits noted. ASSESSMENT AND PLAN: 1. Benign hypertension, controlled. 2. History of cerebrovascular accident, on Plavix, which is being continued. 3. Chronic back pain. The Flexeril seems to be helping, so we will continue [place], [place] PATIENT HISTORY AND PHYSICAL EXAM NAME: WILDER NEELY UNIT #: [id number] ROOM: [facility] DOCTOR: JENNIFER CHENG MD BIRTHDATE: [birth year] medicines. 4. Parkinson's disease, on Sinemet. 5. History of seizure disorder, none recently. He is on Lamictal, which is maintained. 6. Major depression, severe, recurrent. Follow up with Dr. Pryor. Adjustments in meds by him. JENNIFER CHENG MD CM:HISPHYS:PATIENT HISTORY AND PHYSICAL EXAMINATION 5 6 JENNIFER CHENG MD 08/11/1647 interface
--- NOTE | ~2016-08-09 | PR ---
[place], [place] PROGRESS NOTE [id number] UNIT #: [id number] ROOM: 315 DOCTOR: ABDIAS PERALTA MD BIRTHDATE: [birth year] DOS: 08/12/2016 CHIEF COMPLAINT: "That lactulose stuff is horrible." SUMMARY OF THE VISIT: The patient was interviewed in the dining area. He smiled upon my approach. He did report that he is feeling much better with the restarting of his Remeron and the Latuda. His mood does seem to be strongly trending towards euthymia and he denies any auditory hallucinations. He did voice that he has a very early appointment on Sunday at the [facility] that he wants to follow through with in order to maintain his current medication regimen uninterrupted. His only other complaint was that he did not like the taste of the lactulose and wondered if there was any other alternative available to help keep his ammonia level in check. When I did tell him the affirmative, he was happy to hear so. MENTAL STATUS: He is alert and oriented to person, place, and time. Mood does seem to be strongly trending towards euthymia. Affect is much more appropriate. There are no symptoms of nathaly or hypomania. There are no overt auditory or visual hallucinations, no paranoia. Memory is intact. PLAN: I will discontinue his lactulose in lieu of neomycin 1 g every 6 hours. We will monitor and support. Finalise discharge plans and discharge to home when stable. ABDIAS PERALTA MD CM:PNTRANS [id number] ABDIAS PERALTA MD 08/12/16 1052 interface
--- NOTE | ~2016-08-09 | WRIGHTHP ---
[place], [place] PATIENT HISTORY AND PHYSICAL EX[id number] #: [id number] ROOM: 315 DOCTOR: ABDIAS PERALTA MD BIRTHDATE: [birth year] DOS: 08/10/2016 INITIAL PSYCHIATRIC EVALUATION CHIEF COMPLAINT: "[facility] HISTORY OF PRESENT ILLNESS: This is a 60-year-old white male who was [facility] after being discharged recently. The patient reports that he followed up at the [facility] and he swears that they changed his medicines and subsequently he found himself decompensating. He became increasingly more depressed and despondent, he started having auditory hallucinations, again many of which were command in nature, telling him to hurt himself; when this started happening again he went to the Emergency Room to be evaluated and they again agreed that the depression had returned as well as the psychotic symptoms and felt him appropriate for inpatient stabilization. ALLERGIES: Remarkable for allergies to IVP DYE, IODINE, MORPHINE, OXYCODONE, PROPOXYPHENE, ASPIRIN, ACETAMINOPHEN, TRAMADOL, MEPERIDINE AND OLANZAPINE. PAST MEDICAL HISTORY: He has a past history of hypertension, CVA, Parkinson disease, coronary artery disease, and major depression, recurrent. MENTAL STATUS: The patient is alert and oriented to person, place and time. Mood does seem to be very down and depressed. He is flat, blunted with a constricted range. He endorses positive auditory hallucinations, some command, does feel he can contract for safety because he is happy to be back in the hospital feeling safe once again. He denies any nathaly or hypomania. He denies any type of medication side effects. Memory is fairly well intact. DIAGNOSIS: Major depression, recurrent, severe, with psychotic features. PLAN: I have resumed his Latuda 160 mg at bedtime, his Remeron 15 mg at bedtime, his hydroxyzine 50 mg 3 times a day. Screening examination show his vitamin D to be low once again, so I will maintain him on the vitamin D 50,000 international units weekly. Ammonia level was high. I will go ahead and start him on lactulose 20 grams twice daily and monitor repeat ammonia level over the weekend. We will engage him in individual and lew milieu activities. We will discuss with Civil Designer how we can make certain his medications are not changed from the [facility], perhaps an alternative followup is needed. We will discharge then when psychiatrically stable. [place], [place] PATIENT HISTORY AND PHYSICAL EXAM NAME: WILDER NEELY UNIT #: [id number] ROOM: [facility] DOCTOR: ABDIAS PERALTA MD BIRTHDATE: [birth year] ABDIAS PERALTA MD CM:HISPHYS:PATIENT HISTORY AND PHYSICAL EXAMINATION 8 9 ABDIAS PERALTA MD 08/10/16 0841 interface
--- NOTE | ~2016-08-09 | DS ---
[place], [place] DISCHARGE SUMMARY [id number] UNIT #: [id number] ROOM: 315 DOCTOR: ABDIAS PERALTA MD BIRTHDATE: [birth year] DOS: 08/13/2016 CHIEF COMPLAINT: "[facility] HISTORY OF PRESENT ILLNESS: This is a 60-year-old white male, who was readmitted to the [facility] after being discharged home recently. The patient reports that he followed up at the [facility] and he swears that they changed his medications and subsequently, he found himself to compensating. He became increasingly more depressed and despondent. He started having auditory hallucinations again, many of which were command in nature, telling him to hurt himself. When this started, he went to the Emergency Room to be evaluated and they did feel that his depression and psychosis had returned and he seemed genuinely distraught and felt that an inpatient stabilization would be warranted. PAST MEDICAL HISTORY: Remarkable for allergies to IVP DYE, IODINE, MORPHINE, OXYCODONE, PROPOXYPHENE, ASPIRIN, ACETAMINOPHEN, TRAMADOL, MEPERIDINE, and OLANZAPINE. He also has a history of hypertension, CVA, Parkinson's disease, coronary artery disease, and major depression, recurrent. SUMMARY OF HOSPITAL COURSE: The patient was admitted back to the hospital where he was resumed at the doses of all of the medicines that he had been discharged several weeks ago. Latuda was restarted at 160 mg at bedtime, Remeron at 15 mg at bedtime, hydroxyzine 50 mg 3 times a day. Screening examinations once again showed him to have a low vitamin D level, so he was restarted on vitamin D 50,000 international units weekly. Screening examinations also showed his ammonia level to be high, so he was initially started on lactulose 20 grams twice daily. However, after several days, he complained that he did not like the taste of the lactulose and it was discontinued in lieu of neomycin 1 gram every 6 hours. He rapidly improved with this combination of medications and he continued to voice that this medication combination was the best he has ever been stating that with it, he is sleeping well. He is eating well. He feels like his mood has returned to euthymic baseline and the hallucinations have totally dissipated. He reported no extrapyramidal symptoms, tardive dyskinesia, or sedation or any other side effects from the medication regimen. He had improved sufficiently to return home. 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 MENTAL STATUS AT DISCHARGE: At discharge, the patient was alert and oriented to person, place, and time. Mood was euthymic. Affect was appropriate. There were no symptoms of nathaly or hypomania. There were no auditory or visual hallucinations. No delusions or paranoia were noted. Short, intermediate, and long-term memory were fairly well intact. FINAL DIAGNOSES: Major depression, recurrent, elevated serum ammonia level, and vitamin D deficiency. PLAN: His prescriptions have been escribed to [facility]. All discharge instructions will be sent with the patient and he will follow up with the [facility]. [place], [place] DISCHARGE SUMMARY [facility]: [id number] UNIT #: [id number] ROOM: [facility] DOCTOR: ABDIAS PERALTA MD BIRTHDATE: [birth year] ABDIAS PERALTA MD CM:STEFAN 8 7 ABDIAS PERALTA MD 08/13/16907 interface
[2016-08-09 16:16] VITALS: BP 168/100
[2016-08-09 19:42] VITALS: BP 144/96
[2016-08-09 20:21] LABS: FOLIC ACID 8.94 ng/mL (>5.38); VITAMIN D, 25-HYDROXY 19.3 ng/mL (30-100)
[2016-08-10 07:20] VITALS: BP 126/80
[2016-08-10 20:35] VITALS: BP 114/85
[2016-08-11 07:10] VITALS: BP 117/74
[2016-08-11 20:05] VITALS: BP 127/87
[2016-08-12 08:38] VITALS: BP 132/67
[2016-08-12 20:00] VITALS: BP 123/60
[2016-08-13] MEDS ORDERED: VITAMIN D50000 I3 PO (08:09)
[2016-08-13] MEDS ORDERED: BENZTROPINE ME0.5 MG PO (08:09)
[2016-08-13] MEDS ORDERED: LATU80TA PO (08:09)
[2016-08-13] MEDS ORDERED: HYDROXYZINE PAM25 M1 PO (08:09)
[2016-08-13] MEDS ORDERED: MIRTAZAPINE15 M2 PO (08:09)
[2016-08-13] MEDS ORDERED: NEOMYCIN SULFA500 MG PO (08:09)
[2016-08-13 09:10] VITALS: BP 121/76
== END 2016-08-13 14:30 | disposition home or self-care (01) | DRG 885 ==
LOC: 3N 15:01
PROVIDERS: Psychiatry & Neurology Psychiatry
DX: F33.3 Major depressive disorder, recurrent, severe with psychotic symptoms (principal); G20 Parkinson's disease; I10 Essential (primary) hypertension; E78.00 Pure hypercholesterolemia, unspecified; E55.9 Vitamin D deficiency, unspecified; G40.909 Epilepsy, unspecified, not intractable, without status epilepticus; I25.10 Atherosclerotic heart disease of native coronary artery without angina pectoris; Z88.6 Allergy status to analgesic agent; Z91.041 Radiographic dye allergy status; Z88.8 Allergy status to other drugs, medicaments and biological substances; Z86.73 Personal history of transient ischemic attack (TIA), and cerebral infarction without residual deficits

== ENCOUNTER 2016-10-30 18:08 | Emergency (ER) | payer MEDICARE ==
[~2016-10-30] VITALS: Ht 175.2 cm; Wt 121.6 kg
[~2016-10-30 18:08] MED LIST changes: +BENZTROPINE ME0.5 MG PO; +NEOMYCIN SULFA500 MG PO
[2016-10-30 18:58] LABS: BILIRUBIN NEGATIVE (NEGATIVE); BLOOD TRACE-LYSED (NEGATIVE); CLARITY SL CLOUDY (CLEAR); COLOR YELLOW (YELLOW); GLUCOSE NEGATIVE (NEGATIVE); KETONE NEGATIVE (NEGATIVE); LEUKO ESTERASE NEGATIVE (NEGATIVE); NITRITE NEGATIVE (NEGATIVE); PROTEIN NEGATIVE (NEGATIVE); UROBILINOGEN 0.2 E.U./dl (0.2-1.0)
[2016-10-30 19:05] LABS: BASO % 0.3 % (0.0-1.0); EOS # 0.3 10*3/uL (0.0-0.4); EOS % 3.9 % (1.0-4.0); HEMATOCRIT 46.3 % (42.0-52.0); HEMOGLOBIN 16.2 g/dl (14.0-18.0); LYMPH # 1.7 10*3/uL (1.3-4.4); LYMPH % 19.8 % (27.0-41.0); MEAN CELL VOLUME 86.5 fl (80.0-94.0); MEAN CORPUSCULAR HGB 30.3 pg (27.0-31.0); MEAN PLATELET VOLUME 9.1 fl (9.6-12.3); MONO # 0.8 10*3/uL (0.1-1.0); MONO % 9.4 % (3.0-9.0); NEUT # 5.8 10*3/uL (2.3-7.9); NEUT % 66.4 % (47.0-73.0); PLATELET COUNT AUTOMATED 236 10*3/uL (130-400); RED BLOOD COUNT 5.35 10*6/uL (4.50-5.90); RED CELL DISTRI WIDTH 13.3 % (0-14.5); WHITE BLOOD COUNT 8.7 10*3/uL (4.8-10.8)
[2016-10-30 19:05] LABS: BACTERIA 2+; RBC 0-2 rbc/hpf (0-2)
[2016-10-30 19:06] LABS: URINE REFLEX COMMENT YES (NO)
[2016-10-30 19:13] LABS: URINE AMPHETAMINES < 1000 (1000ng/ml); URINE BARBITURATES < 200 (200ng/ml); URINE COCAINE < 300 (300ng/ml)
[2016-10-30 19:19] LABS: ALBUMIN 3.7 gm/dl (3.1-4.5); ALKALINE PHOSPHATASE 63 U/L (45-117); BILIRUBIN, TOTAL 0.3 mg/dl (0.2-1.0); BUN 15 mg/dl (7-24); CARBON DIOXIDE 23 mmol/L (21-32); CHLORIDE 109 mmol/L (98-107); EST GLOM FILT AFRICAN AMERICAN > 60 ml/min; GLUCOSE 98 mg/dL (65-99); POTASSIUM 4.4 mmol/L (3.5-5.1); SGOT/AST 22 IU/L (3-35); SGPT/ALT 26 U/L (12-78); SODIUM 143 mmol/L (136-145); TOTAL PROTEIN 7.5 gm/dL (6.4-8.2)
[2016-10-30 23:35] VITALS: BP 169/96
== END 2016-10-30 23:38 | disposition short-term general hospital (02) ==
LOC: ED 18:08
PROVIDERS: Physician Assistant
DX: F33.3 Major depressive disorder, recurrent, severe with psychotic symptoms (principal); F29 Unspecified psychosis not due to a substance or known physiological condition; Z88.6 Allergy status to analgesic agent; Z88.8 Allergy status to other drugs, medicaments and biological substances; Z79.899 Other long term (current) drug therapy

== ENCOUNTER 2016-11-16 16:15 | Inpatient (IN) | payer MEDICARE ==
[~2016-11-16] VITALS: Ht 175.3 cm; Wt 132.9 kg
[2016-11-16 16:21] VITALS: BP 175/100
[2016-11-16 16:56] LABS: BASO % 0.3 % (0.0-1.0); EOS # 0.3 10*3/uL (0.0-0.4); EOS % 3.9 % (1.0-4.0); HEMATOCRIT 43.3 % (42.0-52.0); LYMPH # 1.9 10*3/uL (1.3-4.4); LYMPH % 27.8 % (27.0-41.0); MEAN CELL VOLUME 86.4 fl (80.0-94.0); MEAN CORPUSCULAR HGB 29.9 pg (27.0-31.0); MEAN CORPUSCULAR HGB CONC 34.6 g/dl (33.0-37.0); MEAN PLATELET VOLUME 8.9 fl (9.6-12.3); MONO # 0.6 10*3/uL (0.1-1.0); MONO % 8.6 % (3.0-9.0); NEUT # 4.1 10*3/uL (2.3-7.9); NEUT % 59.1 % (47.0-73.0); PLATELET COUNT AUTOMATED 212 10*3/uL (130-400); RED BLOOD COUNT 5.01 10*6/uL (4.50-5.90); RED CELL DISTRI WIDTH 12.9 % (0-14.5); WHITE BLOOD COUNT 6.9 10*3/uL (4.8-10.8)
[2016-11-16 17:12] LABS: BUN 12 mg/dl (7-24); CARBON DIOXIDE 24 mmol/L (21-32); CHLORIDE 108 mmol/L (98-107); EST GLOM FILT AFRICAN AMERICAN > 60 ml/min; GLUCOSE 118 mg/dL (65-99); POTASSIUM 4.2 mmol/L (3.5-5.1); SODIUM 142 mmol/L (136-145); TROPONIN I < 0.015 ng/ml (<0.045)
[2016-11-16 18:49] VITALS: BP 159/103
[2016-11-16 19:05] VITALS: BP 157/102
[2016-11-16 19:17] VITALS: BP 161/97
[2016-11-16 20:45] VITALS: BP 170/94
[2016-11-16] MEDS ORDERED: PRAVACHOL20 MG PO (20:46)
[2016-11-16] MEDS ORDERED: NEOMYCIN PO (20:47)
[2016-11-16] MEDS ORDERED: REMERON15 M2 PO (20:48)
[2016-11-16] MEDS ORDERED: LAMICTAL25 MG PO (20:49)
[2016-11-16] MEDS ORDERED: VISTARIL50 MG PO (20:50)
[2016-11-16] MEDS ORDERED: BENTYL10 MG PO (20:51)
[2016-11-16] MEDS ORDERED: ZESTRIL20 MG PO (20:52)
[2016-11-16] MEDS ORDERED: AMLODIPINE BESYL5 MG PO (20:52)
[2016-11-16] MEDS ORDERED: SINEMET 25-2501 TA1 PO (20:53)
[2016-11-16] MEDS ORDERED: CYCLOBENZAPRINE10 MG PO (20:54)
[2016-11-16] MEDS ORDERED: COGENTIN0.5 MG PO (20:55)
[2016-11-17] VITALS: BP 168/86
[2016-11-17 08:00] VITALS: BP 140/88
[2016-11-17 12:00] VITALS: BP 121/80
[2016-11-17 16:00] VITALS: BP 135/82
[2016-11-17 20:00] VITALS: BP 135/77
[2016-11-18] VITALS (7 sets, daily range): BP systolic 88–159; BP diastolic 42–106
[2016-11-18 08:16] LABS: BASO % 0.3 % (0.0-1.0); EOS # 0.3 10*3/uL (0.0-0.4); EOS % 5.3 % (1.0-4.0); HEMATOCRIT 42.5 % (42.0-52.0); HEMOGLOBIN 14.6 g/dl (14.0-18.0); LYMPH # 1.9 10*3/uL (1.3-4.4); LYMPH % 30.8 % (27.0-41.0); MEAN CELL VOLUME 87.6 fl (80.0-94.0); MEAN CORPUSCULAR HGB 30.1 pg (27.0-31.0); MEAN CORPUSCULAR HGB CONC 34.4 g/dl (33.0-37.0); MEAN PLATELET VOLUME 9.2 fl (9.6-12.3); MONO # 0.7 10*3/uL (0.1-1.0); MONO % 11.1 % (3.0-9.0); NEUT # 3.1 10*3/uL (2.3-7.9); PLATELET COUNT AUTOMATED 208 10*3/uL (130-400); RED BLOOD COUNT 4.85 10*6/uL (4.50-5.90)
[2016-11-18 08:30] LABS: BUN 13 mg/dl (7-24); CARBON DIOXIDE 24 mmol/L (21-32); CHLORIDE 108 mmol/L (98-107); EST GLOM FILT AFRICAN AMERICAN > 60 ml/min; GLUCOSE 112 mg/dL (65-99); SODIUM 140 mmol/L (136-145)
[2016-11-19] VITALS: BP 136/79
[2016-11-19 04:00] VITALS: BP 135/70
[2016-11-19 06:08] LABS: BASO % 0.3 % (0.0-1.0); EOS # 0.4 10*3/uL (0.0-0.4); EOS % 5.5 % (1.0-4.0); HEMATOCRIT 43.5 % (42.0-52.0); HEMOGLOBIN 15.1 g/dl (14.0-18.0); LYMPH # 2.1 10*3/uL (1.3-4.4); LYMPH % 31.3 % (27.0-41.0); MEAN CORPUSCULAR HGB 30.2 pg (27.0-31.0); MEAN CORPUSCULAR HGB CONC 34.7 g/dl (33.0-37.0); MEAN PLATELET VOLUME 9.2 fl (9.6-12.3); MONO # 0.8 10*3/uL (0.1-1.0); MONO % 11.5 % (3.0-9.0); NEUT # 3.5 10*3/uL (2.3-7.9); PLATELET COUNT AUTOMATED 201 10*3/uL (130-400); RED CELL DISTRI WIDTH 12.9 % (0-14.5); WHITE BLOOD COUNT 6.8 10*3/uL (4.8-10.8)
[2016-11-19 06:33] LABS: BUN 10 mg/dl (7-24); CARBON DIOXIDE 27 mmol/L (21-32); CHLORIDE 106 mmol/L (98-107); EST GLOM FILT AFRICAN AMERICAN > 60 ml/min; GLUCOSE 91 mg/dL (65-99); POTASSIUM 4.3 mmol/L (3.5-5.1); SODIUM 143 mmol/L (136-145)
[2016-11-19 08:00] VITALS: BP 158/98
[2016-11-19 12:00] VITALS: BP 156/89
[2016-11-19 16:00] VITALS: BP 127/84
[2016-11-19 20:00] VITALS: BP 137/88
[2016-11-20] VITALS: BP 109/62; BP 137/88
[2016-11-20 05:44] VITALS: BP 134/89
[2016-11-20] MEDS ORDERED: AMLODIPINE BESY1 TAB PO (07:20)
[2016-11-20 08:00] VITALS: BP 126/80; BP 130/90
[2016-11-20 12:00] VITALS: BP 130/76
[2016-11-20 15:00] VITALS: BP 118/80
== END 2016-11-20 16:45 | disposition home or self-care (01) | DRG 312 ==
LOC: ED 16:15 → EDHOLD 18:16 → 4E 18:16
PROVIDERS: Emergency Medicine; Internal Medicine
DX: R55 Syncope and collapse (principal); G20 Parkinson's disease; F31.30 Bipolar disorder, current episode depressed, mild or moderate severity, unspecified; I69.354 Hemiplegia and hemiparesis following cerebral infarction affecting left non-dominant side; G89.29 Other chronic pain; R07.2 Precordial pain; M54.5 Low back pain; I10 Essential (primary) hypertension; K21.9 Gastro-esophageal reflux disease without esophagitis; I25.10 Atherosclerotic heart disease of native coronary artery without angina pectoris; M10.9 Gout, unspecified; E78.00 Pure hypercholesterolemia, unspecified; E78.5 Hyperlipidemia, unspecified; G40.909 Epilepsy, unspecified, not intractable, without status epilepticus; Z82.49 Family history of ischemic heart disease and other diseases of the circulatory system; Z83.3 Family history of diabetes mellitus; Z88.6 Allergy status to analgesic agent; Z88.5 Allergy status to narcotic agent; Z91.041 Radiographic dye allergy status; Z88.8 Allergy status to other drugs, medicaments and biological substances; Z79.899 Other long term (current) drug therapy

== ENCOUNTER 2016-11-21 13:17 | Emergency (ER) | payer MEDICARE ==
[~2016-11-21] VITALS: Ht 180.3 cm; Wt 127.0 kg
[~2016-11-21 13:17] MED LIST changes: +AMLODIPINE BESY1 TAB PO; +COGENTIN0.5 MG PO; +NEOMYCIN PO; +PRAVACHOL20 MG PO; +REMERON15 M2 PO; +SINEMET 25-2501 TA1 PO; +VISTARIL50 MG PO; +ZESTRIL20 MG PO
[2016-11-21 13:49] LABS: BASO % 0.5 % (0.0-1.0); EOS # 0.3 10*3/uL (0.0-0.4); EOS % 3.1 % (1.0-4.0); HEMATOCRIT 47.8 % (42.0-52.0); HEMOGLOBIN 16.7 g/dl (14.0-18.0); MEAN CELL VOLUME 85.7 fl (80.0-94.0); MEAN CORPUSCULAR HGB 29.9 pg (27.0-31.0); MEAN CORPUSCULAR HGB CONC 34.9 g/dl (33.0-37.0); MEAN PLATELET VOLUME 9.2 fl (9.6-12.3); MONO # 0.8 10*3/uL (0.1-1.0); MONO % 9.2 % (3.0-9.0); NEUT # 5.1 10*3/uL (2.3-7.9); NEUT % 62.7 % (47.0-73.0); PLATELET COUNT AUTOMATED 241 10*3/uL (130-400); RED BLOOD COUNT 5.58 10*6/uL (4.50-5.90); RED CELL DISTRI WIDTH 12.8 % (0-14.5); WHITE BLOOD COUNT 8.1 10*3/uL (4.8-10.8)
[2016-11-21 14:05] LABS: BUN 15 mg/dl (7-24); CARBON DIOXIDE 19 mmol/L (21-32); CHLORIDE 108 mmol/L (98-107); EST GLOM FILT AFRICAN AMERICAN > 60 ml/min; GLUCOSE 100 mg/dL (65-99); POTASSIUM 4.4 mmol/L (3.5-5.1); SODIUM 141 mmol/L (136-145)
[2016-11-21 14:06] LABS: TROPONIN I < 0.015 ng/ml (<0.045)
[2016-11-21 15:57] VITALS: BP 178/116
== END 2016-11-21 17:03 | disposition home or self-care (01) ==
LOC: ED 13:17
PROVIDERS: Emergency Medicine
DX: G89.29 Other chronic pain (principal); R10.30 Lower abdominal pain, unspecified; M54.5 Low back pain; R55 Syncope and collapse; I10 Essential (primary) hypertension; M10.9 Gout, unspecified; E78.00 Pure hypercholesterolemia, unspecified; E78.5 Hyperlipidemia, unspecified; G40.909 Epilepsy, unspecified, not intractable, without status epilepticus; K21.9 Gastro-esophageal reflux disease without esophagitis; F12.10 Cannabis abuse, uncomplicated; Z88.6 Allergy status to analgesic agent; Z91.041 Radiographic dye allergy status; Z88.8 Allergy status to other drugs, medicaments and biological substances; Z79.899 Other long term (current) drug therapy

== ENCOUNTER → 2017-02-02 | Outpatient (CLI) | payer MEDICARE | END | disposition home or self-care (01) | LOC: MRI 01-02 15:00 | DX: M51.26 Other intervertebral disc displacement, lumbar region (principal); M48.06 Spinal stenosis, lumbar region; M54.16 Radiculopathy, lumbar region; M43.17 Spondylolisthesis, lumbosacral region ==

== ENCOUNTER 2017-02-09 22:58 | Emergency (ER) | payer MEDICARE ==
[~2017-02-09] VITALS: Ht 177.8 cm; Wt 117.9 kg
[2017-02-09 22:58] VITALS: BP 168/101
[2017-02-10] MEDS ORDERED: LIDODERM1 EACH T (00:15)
== END 2017-02-10 00:33 | disposition home or self-care (01) ==
LOC: ED 22:58
DX: G89.29 Other chronic pain (principal); M54.5 Low back pain; F17.200 Nicotine dependence, unspecified, uncomplicated; I10 Essential (primary) hypertension; E78.5 Hyperlipidemia, unspecified; K21.9 Gastro-esophageal reflux disease without esophagitis; Z86.73 Personal history of transient ischemic attack (TIA), and cerebral infarction without residual deficits; Z88.6 Allergy status to analgesic agent; Z88.8 Allergy status to other drugs, medicaments and biological substances; W19.XXXA Unspecified fall, initial encounter; Y93.89 Activity, other specified; Y92.9 Unspecified place or not applicable; Y99.9 Unspecified external cause status

== ENCOUNTER 2017-03-15 12:48 | Emergency (ER) | payer MEDICARE ==
[~2017-03-15] VITALS: Ht 175.2 cm; Wt 117.9 kg
[~2017-03-15 12:48] MED LIST changes: +LIDODERM1 EACH T
[2017-03-15 12:55] VITALS: BP 167/90
== END 2017-03-15 14:31 | disposition home or self-care (01) ==
LOC: ED 12:48
DX: M54.5 Low back pain (principal); G89.29 Other chronic pain; G93.2 Benign intracranial hypertension; F31.9 Bipolar disorder, unspecified; F32.9 Major depressive disorder, single episode, unspecified; F14.10 Cocaine abuse, uncomplicated; M51.36 Other intervertebral disc degeneration, lumbar region; I10 Essential (primary) hypertension; K21.9 Gastro-esophageal reflux disease without esophagitis; E78.5 Hyperlipidemia, unspecified; E78.00 Pure hypercholesterolemia, unspecified; G20 Parkinson's disease; F43.10 Post-traumatic stress disorder, unspecified; G40.909 Epilepsy, unspecified, not intractable, without status epilepticus; Z93.3 Colostomy status; Z79.899 Other long term (current) drug therapy; Z91.041 Radiographic dye allergy status; Z88.5 Allergy status to narcotic agent; Z88.8 Allergy status to other drugs, medicaments and biological substances

== ENCOUNTER 2017-07-05 09:12 | Inpatient (IN) | payer MEDICARE ==
[2017-07-05] VITALS (7 sets, daily range): BP systolic 154–180; BP diastolic 90–109
[~2017-07-05] VITALS: Ht 175.3 cm; Wt 151.0 kg
--- NOTE | ~2017-07-05 | WRIGHTHP ---
[place], [place] PATIENT HISTORY AND PHYSICAL EXAM NAME: WILDER NEELY [facility] #: [id number] UNIT #: [id number] ROOM: 420 DOCTOR: JUDE BERRY MD BIRTHDATE: [birth year] DOS: 07/05/2017 HISTORY OF PRESENT ILLNESS: The patient is a 61-year-old gentleman with a past medical history of: 1. Benign essential hypertension. 2. Morbid obesity. 3. CVA with right hemiparesis. 4. History of seizure disorder. 5. Parkinson's disease. 6. Poor compliance with treatment and medications. 7. GERD and esophagitis. 8. History of perforated bowel, with colostomy and reversal of colostomy. 9. History of diverticulitis. 10. Chronic lower back pains. 11. Migraine headaches. 12. Major depression, recurrent, moderate and history of suicidal ideation in the past. 13. PTSD (posttraumatic stress disorder). The patient was falling repeatedly at home and after the last fall is complaining of lower back pains and unable to ambulate. The patient was brought over for the second time to the Emergency Department and recommended for admission and further management. After admission, the patient says that multiple medications are marked as allergies, but he is not allergic to morphine or Dilaudid and has taken both medications before without any serious allergies or allergic reactions. The patient is requesting pain medications. No complaints of chest pain, shortness of breath. No GI or urinary symptoms. The patient says he has been falling repeatedly because he is weak. REVIEW OF SYSTEMS: LUNGS: No increasing shortness of breath. GASTROINTESTINAL: No nausea, vomiting, diarrhea or constipation. CARDIOVASCULAR: No chest pains or palpitations. FAMILY HISTORY: Noncontributory. SOCIAL HISTORY: The patient lives at home. ALLERGIES: The patient has known allergies to IODINE, OXYCODONE, ASPIRIN, TRAMADOL, DEMEROL, ZYPREXA. PHYSICAL EXAMINATION: GENERAL: The patient is alert, oriented x 3, poor historian, in no visible distress, morbidly obese, with right-sided weakness. HEENT AND NECK: Extraocular movements are intact. Sclerae are anicteric. Oral mucosa is moist and clean. No obvious facial weakness. Neck is supple without any lymphadenopathy. No thyromegaly. No JVD. No carotid arterial bruits. LUNGS: Clear to auscultation. No wheezing. No rhonchi. CARDIOVASCULAR SYSTEM: Heart rate is regular in rate and rhythm. S1 and S2 normally audible. No significant murmur or any other abnormal cardiac sounds. [place], [place] PATIENT HISTORY AND PHYSICAL EXAM NAME: WILDER NEELY UNIT #: [id number] ROOM: 420 DOCTOR: JUDE BERRY MD BIRTHDATE: [birth year] ABDOMEN: Soft, nontender. No obvious organomegaly. Bowel sounds are present. No obvious herniation. EXTREMITIES: Without significant cyanosis or edema. Warm to touch. CENTRAL NERVOUS SYSTEM: Alert and oriented x 3. Cranial nerves II-XII are intact. Speech is normal. The patient is able to move all extremities. Normal muscle strength. Deep tendon reflexes are equal on both sides. Plantars were downgoing. LABORATORY DATA: X-rays of the shoulder, thoracic, cervical spine and right humerus, also right arm and CT of the head without any acute abnormality. Normal serum electrolytes, bilirubin, liver enzymes. PT, PTT were normal. IMPRESSION: 1. The patient with morbid obesity, right hemiparesis, generalized weakness and adult failure to thrive. The patient is being started on physical therapy and [facility] were consulted for placement to a shelter. 2. History of benign essential hypertension with elevated blood pressures. Apparently, the patient was not taking any medications at home because he did not have any medications refilled since January or February of last year, at least 4 months. 3. Acute lower back pains, probably related to the fall. The patient will be kept on Dilaudid on as needed basis and he will be kept on physical therapy. 4. Posttraumatic stress disorder and history of major depression, recurrent, in the past, moderate. The patient stopped taking all of his depression medications. I will ask Dr. Pryor to see him. 5. History of seizure disorder, without any recent seizures. 6. Previous history of patient being suicidal, does not claim to be suicidal anymore. 7. Morbid obesity. The patient to work with Dietary. JUDE BERRY MD CM:HISPHYS:PATIENT HISTORY AND PHYSICAL EXAMINATION 1528 [id number] JUDE BERRY MD 07/05/17 1644 interface
--- NOTE | ~2017-07-05 | PR ---
[place], [place] PROGRESS NOTE NAME: WILDER NEELY [facility] #: [id number] UNIT #: [id number] ROOM: 420 DOCTOR: JUDE BERRY MD BIRTHDATE: [birth year] DOS: 07/07/2017 SUBJECTIVE: The patient continues to feel better, although he is still weak. OBJECTIVE: VITAL SIGNS: Blood pressure 124/84, heart rate 72 beats per minute, breathing 18 times per minute, temperature 98.6 degrees Fahrenheit. GENERAL APPEARANCE: The patient is alert and oriented x 3, in no visible distress. HEENT AND NECK: Exam within normal limits. CARDIOVASCULAR SYSTEM: Heart rate is regular in rate and rhythm. S1 and S2 normally audible. LUNGS: Clear to auscultation. ABDOMEN: Soft, nontender. No obvious organomegaly. Bowel sounds are present. EXTREMITIES: Without significant cyanosis or edema. Right hemiparesis. IMPRESSION: 1. Generalized weakness with right hemiparesis. The patient working with Occupational Therapy and Physical Therapy and waiting for transfer for rehabilitation to custodial facility. 2. Benign essential hypertension. Blood pressures are well controlled with Norvasc now. 3. Morbid obesity. The patient working with dietary and Physical Therapy. 4. Generalized seizure disorder without any recent seizures. 5. Posttraumatic stress disorder and major depression, recurrent, moderate, being followed by Dr. Pryor, the psychiatrist. 6. Chronic lower back pains without any fractures on the x-ray. Pain improved with treatment. JUDE BERRY MD CM:PNJUNO [id number] JUDE BERRY MD 07/07/172109 interface
--- NOTE | ~2017-07-05 | PR ---
[place], [place] PROGRESS NOTE [id number] #: [id number] ROOM: 420 DOCTOR: JUDE BERRY MD BIRTHDATE: [birth year] DOS: 07/06/2017 SUBJECTIVE: The patient is very weak, otherwise feeling better. OBJECTIVE: VITAL SIGNS: Blood pressure, 140/90, heart rate 88 beats per minute, breathing 20 times per minute, temperature 98.2 degrees Fahrenheit. The patient says his back pain is much better. GENERAL APPEARANCE: Morbid obesity and right-sided weakness. HEENT AND NECK: Exam within normal limits. CARDIOVASCULAR SYSTEM: Heart rate is regular in rate and rhythm. S1 and S2 normally audible. LUNGS: Clear to auscultation. ABDOMEN: Soft, nontender. No obvious organomegaly. Bowel sounds are present. EXTREMITIES: Without significant cyanosis or edema. IMPRESSION: 1. Generalized weakness and right hemiparesis. The patient on Occupational Therapy and Physical Therapy and waiting [facility] to [facility]. 2. Benign essential hypertension with better controlled blood pressures. 3. Acute lower back pains without any fractures on the x-rays, improved with pain treatment. 4. Posttraumatic stress disorder as well as major depression, recurrent, moderate, to be followed by Dr. Pryor. 5. History of seizure disorder without any seizures. 6. Morbid obesity. The patient is working with dietary. 7. Benign essential hypertension. The patient started on Norvasc. Blood pressures have normalized. JUDE BERRY MD CM:PNTRANS [id number] JUDE BERRY MD 07/06/172046 interface
--- NOTE | ~2017-07-05 | DS ---
[place], [place] DISCHARGE SUMMARY NAME: WILDER NEELY [facility] #: [id number] UNIT #: [id number] ROOM: 420 DOCTOR: JUDE BERRY MD BIRTHDATE: [birth year] DOS: 07/08/2017 DISCHARGE DIAGNOSES: 1. Adult failure to thrive and advanced disability with ambulatory dysfunction. The patient unable to walk. 2. Morbid obesity. 3. Right hemiparesis, although CT of the head did not show any cerebral infarct. 4. Generalized seizure disorder. 5. Posttraumatic stress disorder. 6. Major depression, recurrent, moderate. The patient evaluated by Dr. Pryor. 7. Chronic lower back pains without any fracture on the x-ray performed during this admission. 8. Benign essential hypertension. 9. History of seizure disorder. 10. Parkinson's disease. 11. Poor compliance with treatment and medications. The patient is not taking any of his medications at home. 12. Gastroesophageal reflux disease and esophagitis. 13. History of perforated bowel with colostomy and reversal of colostomy in the past. 14. History of diverticulitis. 15. Migraine type headaches. 16. The patient was diagnosed as having bipolar disorder type 2. HOSPITAL COURSE: The patient presented to the Emergency Department after recurrent falls at home and acute pain in lower back and he was unable to ambulate. The patient was brought to the Emergency Department for the second time and this time recommended for admission and half-way placement. The patient apparently taking no medications at home and although he has multiple allergies recorded in his medical records, but he says he was not allergic to morphine or Dilaudid, which were used without any side effects during this admission. The patient's back pains have resolved and he is very comfortable. Benign essential hypertension with elevated blood pressures because he was not taking any of his medications. I started him on Norvasc 10 mg a day and his blood pressures have normalized. Posttraumatic stress disorder and major depression, recurrent, moderate. The patient was evaluated by Dr. Pryor and started on Remeron for bipolar type 2 disorder. LABORATORY DATA: Normal CBC. Normal serum electrolytes, BUN and creatinine. Right shoulder, thoracic spine x-ray, cervical spine x-ray and x-ray of the right humerus and right forearm and CT of the head without any major acute findings. DISCHARGE MANAGEMENT: Norvasc 10 mg a day, mirtazapine 15 mg at bedtime. Consult OT and PT and consult Dr. Pryor. [place], [place] DISCHARGE SUMMARY NAME: FLORINDAWILDER UNIT #: [id number] ROOM: 420 DOCTOR: KRISTI REYNOSO,JUDE Castillo BIRTHDATE: [birth year] JUDE BERRY MD CM:DISCHARG [id number] JUDE BERRY MD 07/08/17 1724 interface
--- NOTE | ~2017-07-05 | CON ---
[place], [place] REPORT OF CONSULTATION NAME: WILDER NEELY UNIT #: [id number] ROOM: 420 DOCTOR: ABDIAS PERALTA MD BIRTHDATE: [birth year] DOS: 07/06/2017 CHIEF COMPLAINT: "I took a really nasty fall, but psych hyatt, I am doing fine doc." HISTORY OF PRESENT ILLNESS: This is a 61-year-old white male known to me from a previous admission to the [facility]. The patient is admitted now after sustaining a significant fall at home. The patient reports that he was diagnosed with Parkinson's several years ago and has had an issue with gait instability. From a psychiatric standpoint, the patient reports that he has been compliant with his meds and that he received a 3-month supply of his medication from the [place]. Most recently, it appears that the patient has been on a combination of Latuda and Remeron. He denies any depressive symptomatology now stating that he has everything in the world to live for. He is sleeping well, eating well and engaging in normal ADLs. He also convincingly denies nathaly, hypomania or any psychotic symptoms. His plan at the present is to get well in the hospital and then rehab for several weeks at [facility] to build up his strength and improve his gait mobility. PAST MEDICAL HISTORY: Remarkable for hypertension, obesity, CVA, seizure disorder, Parkinson's disease, GERD, perforated bowel, diverticulitis, chronic back pain, migraine headaches, PTSD and major depression. ALLERGIES: He also has significant allergies to IODINE, OXYCODONE, ASPIRIN, TRAMADOL, DEMEROL, AND ZYPREXA. MENTAL STATUS: The patient is alert and oriented. Mood does seem euthymic. Affect is appropriate. There is no nathaly, hypomania or psychosis. There are no suicidal thoughts, homicidal thoughts or any self-injurious thoughts. Memory is intact. FINAL DIAGNOSIS: Bipolar type 2. PLAN: I will restart him on Remeron 15 at bedtime. I will hold off on restarting Latuda as this could exacerbate the Parkinson's and cause worsening gait instability. If he should flare into a nathaly or hypomania, I would consider alternate agents. I will follow him when he is admitted to [place]. ABDIAS PERALTA MD CM:CONSTR:REPORT OF CONSULTATION 1004 07/06/172 interface
[2017-07-06 00:03] VITALS: BP 146/101
[2017-07-06 05:53] LABS: BASO # 0.1 10*3/uL (0.0-0.1); BASO % 0.9 % (0.0-1.0); EOS # 0.3 10*3/uL (0.0-0.4); EOS % 4.4 % (1.0-4.0); LYMPH # 1.7 10*3/uL (1.3-4.4); LYMPH % 24.5 % (27.0-41.0); MEAN CORPUSCULAR HGB 30.2 pg (27.0-31.0); MEAN CORPUSCULAR HGB CONC 34.8 g/dl (33.0-37.0); MEAN PLATELET VOLUME 9.2 fl (9.6-12.3); MONO # 0.7 10*3/uL (0.1-1.0); MONO % 9.6 % (3.0-9.0); NEUT # 4.1 10*3/uL (2.3-7.9); NEUT % 60.2 % (47.0-73.0); PLATELET COUNT AUTOMATED 217 10*3/uL (130-400); RED BLOOD COUNT 5.29 10*6/uL (4.50-5.90); RED CELL DISTRI WIDTH 13.1 % (0-14.5); WHITE BLOOD COUNT 6.8 10*3/uL (4.8-10.8)
[2017-07-06 06:02] LABS: BUN 9 mg/dl (7-24); CHLORIDE 107 mmol/L (98-107); CREATININE 1.13 mg/dL (0.70-1.30); POTASSIUM 4.1 mmol/L (3.5-5.1); SODIUM 141 mmol/L (136-145)
[2017-07-06 08:00] VITALS: BP 140/90
[2017-07-06 12:00] VITALS: BP 137/80
[2017-07-06 17:05] VITALS: BP 142/96
[2017-07-06 20:00] VITALS: BP 152/82
[2017-07-06 20:12] VITALS: BP 152/82; BP 160/99
[2017-07-07] VITALS: BP 122/76
[2017-07-07 08:15] VITALS: BP 139/102
[2017-07-07 12:06] VITALS: BP 124/84
[2017-07-07 16:00] VITALS: BP 119/83
[2017-07-07 20:00] VITALS: BP 130/77
[2017-07-08] VITALS: BP 108/57
[2017-07-08 08:00] VITALS: BP 110/90
[2017-07-08 12:00] VITALS: BP 146/87
[2017-07-08] MEDS ORDERED: AMLODIPINE BESY10 MG PO (14:19)
[2017-07-08] MEDS ORDERED: MIRTAZAPINE15 M2 PO (14:19)
== END 2017-07-08 14:47 | disposition other institution (70) | DRG 948 ==
LOC: ED 09:12 → EDHOLD 12:45 → 4E 12:45
PROVIDERS: Internal Medicine
DX: R53.1 Weakness (principal); E66.01 Morbid (severe) obesity due to excess calories; G20 Parkinson's disease; F31.81 Bipolar II disorder; I69.351 Hemiplegia and hemiparesis following cerebral infarction affecting right dominant side; Z68.44 Body mass index [BMI] 60.0-69.9, adult; R62.7 Adult failure to thrive; I10 Essential (primary) hypertension; W19.XXXA Unspecified fall, initial encounter; G40.909 Epilepsy, unspecified, not intractable, without status epilepticus; F43.10 Post-traumatic stress disorder, unspecified; G89.29 Other chronic pain; K21.0 Gastro-esophageal reflux disease with esophagitis; G43.909 Migraine, unspecified, not intractable, without status migrainosus; R29.6 Repeated falls; M10.9 Gout, unspecified; E78.00 Pure hypercholesterolemia, unspecified; M54.5 Low back pain; E78.5 Hyperlipidemia, unspecified; Z91.81 History of falling; Y93.9 Activity, unspecified; Y92.9 Unspecified place or not applicable; Y99.9 Unspecified external cause status; Z91.14 Patient's other noncompliance with medication regimen; Z93.3 Colostomy status; Z88.8 Allergy status to other drugs, medicaments and biological substances; Z91.041 Radiographic dye allergy status; Z79.899 Other long term (current) drug therapy; Z91.5 Personal history of self-harm; Z83.3 Family history of diabetes mellitus; Z82.49 Family history of ischemic heart disease and other diseases of the circulatory system; Z80.8 Family history of malignant neoplasm of other organs or systems; Z88.6 Allergy status to analgesic agent

== ENCOUNTER 2017-11-30 11:28 | Inpatient (IN) | payer OTHER, MEDICARE ==
[2017-11-30] VITALS (8 sets, daily range): BP systolic 111–148; BP diastolic 72–94
[~2017-11-30] VITALS: Ht 175.2 cm; Wt 123.6 kg
--- NOTE | ~2017-11-30 | PR ---
[place], [place] PROGRESS NOTE NAME: WILDER NEELY UNIT #: [id number] ROOM: 515 DOCTOR: OLLIE ESTRADA MD BIRTHDATE: [birth year] DOS: 12/02/2017 CARDIOLOGY FOLLOWUP VISIT NOTE REASON FOR VISIT: Chest pain. SUBJECTIVE: The patient is feeling better. Denies any further chest pain. Denies any shortness of breath, palpitations or dizziness. No PND, no orthopnea. No nausea, vomiting, or diarrhea. REVIEW OF SYSTEMS: Review of the 8 systems negative except as mentioned above. OBJECTIVE: VITAL SIGNS: Blood pressure 148/88, pulse 60, respiratory rate is 20, weight 123.6 kilos, BMI 40. RHYTHM STRIP: The patient in sinus rhythm with the bradycardia on the monitor. GENERAL: Alert, comfortable, in no acute distress. HEAD AND NECK: Pupils are round and equal. No jaundice. Tongue was moist and pharynx clear. Neck supple, no distended neck veins, no carotid bruit. CHEST: Symmetrical, nontender. LUNGS: Clear to auscultation bilaterally. HEART: Regular rhythm, no S3, no palpable thrills. ABDOMEN: Benign, nontender. Bowel sounds normal. EXTREMITIES: Showed no edema and distal pulses are palpable. SKIN: Warm and dry. No cyanosis, no clubbing. RECTAL: Deferred. GENITOURINARY: Deferred. MEDICATIONS, ALLERGIES AND LABORATORY DATA: Reviewed. IMPRESSION: 1. Chest pain, atypical, myocardial infarction ruled out. 2. Elevated total CPK, noncardiac. 3. Hypertension. 4. Intermittent left-sided weakness. 5. Morbid obesity. 6. Bipolar disorder and posttraumatic stress disorder. RECOMMENDATIONS: 1. Lexiscan stress test tomorrow. 2. His 2D echo done in November 2006 reviewed, it showed EF of 60% with stage 2 diastolic dysfunction. 3. Diuretics as needed for his lower extremity edema. 4. Currently, he is in no acute heart failure with normal BNP levels. 5. There is no family at bedside at the time of my examination. [place], [place] PROGRESS NOTE NAME: WILDER NEELY UNIT #: [id number] ROOM: 515 DOCTOR: OLLIE ESTRADA MD BIRTHDATE: [birth year] OLLIE ESTRADA MD CM:PNJUNO 11 09 OLLIE ESTRADA MD 12/03/179 interface
--- NOTE | ~2017-11-30 | PR ---
[place], [place] PROGRESS NOTE NAME: WILDER NEELY UNIT #: [id number] ROOM: 515 DOCTOR: JENNIFER CHENG MD BIRTHDATE: [birth year] DOS: SUBJECTIVE: The patient states that he feels okay, does not have any new complaints, appreciate Cardiology input. The patient states that he is supposed to have stress test tomorrow. He did have extremely low blood pressure of 70/34, antihypertensive was discontinued and he was given IV fluids. After the bolus of IV fluid, pressure has gone up to 119/69. The patient tells me his blood pressure meds were recently increased by the [facility]. PHYSICAL EXAMINATION: VITAL SIGNS: Graphic trend shows pressure of 119/69, pulse of 70, respirations 18. LUNGS: Clear. HEART: Regular. ABDOMEN: Obese. EXTREMITIES: Without any edema. Troponins were all negative. ASSESSMENT AND PLAN: 1. The patient who presents with precordial chest pain, awaiting a stress test tomorrow. 2. Last stress test was November of 2016. 3. Hypotension, possibly from recent increase in medicines, pressures have normalized. I have held antihypertensives for right now, we will restart those meds, see if the blood pressure drops again. JENNIFER CHENG MD CM:PNTRANS [id number] JENNIFER CHENG MD 12/02/17 2242 interface
--- NOTE | ~2017-11-30 | CON ---
[place], [place] REPORT OF CONSULTATION NAME: WILDER NEELY UNIT #: [id number] ROOM: [facility] DOCTOR: SEAN REYNOSO,OLLIE BIRTHDATE: [birth year] DOS: 12/01/2017 CARDIOLOGY CONSULT REASON FOR CONSULTATION: Chest pain. CLINICAL HISTORY: The patient is a 62-year-old gentleman with history of hypertension, chronic back pain, left leg weakness, acid reflux, presented to the Emergency Room with chest pain. He described his pain as aching type of pain. Evidently, he woke up with this pain, like an aching sensation in midsternal area, has some shortness of breath and also pain radiated to his left arm. This pain lasted for a few minutes and gradually relieved on its own, but he denies any anginal chest pains, palpations or dizziness. No nausea, vomiting, diarrhea. No palpitation, no orthopnea, no PND. No tingling, numbness or weakness. No headaches. No cough or hemoptysis. No hematuria or dysuria. REVIEW OF SYSTEMS: Review of the 10 systems negative except as mentioned above. PAST MEDICAL HISTORY: 1. Hypertension. 2. Moderate obesity. 3. PTSD. 4. Depression. 5. Chronic low back pain. 6. Left-sided weakness per patient. 7. Bipolar. SURGICAL HISTORY: Reviewed. ALLERGIES: Reviewed. HOME MEDICATIONS: Reviewed. FAMILY HISTORY: Nil contributory. PHYSICAL EXAMINATION: VITAL SIGNS: Blood pressure 98/60, pulse 74, respiration is 18, weight 123.6 kilos, BMI 40. GENERAL: Alert, comfortable, in no acute distress. HEAD AND NECK: Pupils are round and equal. No jaundice. Tongue was moist and pharynx clear. NECK: Supple, no distended neck veins, no carotid bruit. Thyroid not palpable. CHEST: Symmetrical, nontender. LUNGS: Clear to auscultation. HEART: Regular rhythm, no S3, no palpable thrills. ABDOMEN: Benign, nontender. Bowel sounds normal. The patient is morbidly obese. EXTREMITIES: Showed trace edema. Distal pulses are palpable. SKIN: Warm and dry. No cyanosis, no clubbing. [place], [place] REPORT OF CONSULTATION NAME: WILDER NEELY UNIT #: [id number] ROOM: [facility] DOCTOR: SEAN REYNOSO,OLLIE BIRTHDATE: [birth year] RECTAL: Deferred. GENITOURINARY: Deferred. NEUROLOGIC: No focal neurologic deficit except the patient is reporting that his left side occasionally gets week. REVIEW OF THE DIAGNOSTIC TESTS: EKG, imaging studies and labs reviewed. The BNP is normal at 16. Potassium 4.4. Creatinine is 1.17, hemoglobin 15, platelet 228,000. TSH is normal. Total CPK is 1122, MB 4.9. The troponin was negative. IMPRESSION: 1. Chest pain, atypical, myocardial infarction ruled out. 2. Elevated total CPK, noncardiac. 3. Hypertension. 4. Obesity. 5. Chronic back pain. 6. Intermittent left-sided weakness per patient. 7. Bipolar disorder and posttraumatic stress disorder. RECOMMENDATIONS: 1. I would recommend Lexiscan stress test to rule out ischemia due to his coronary disease risk factors and atypical chest pains. 2. Diuretics as needed for his lower extremity edema. 3. A 2D echo from 11/2016 showed normal LV function with stage 2 diastolic dysfunction. 4. Risk factor modification for diet, exercise and weight loss discussed. 5. There is no family at bedside at the time of my examination. 6. Watch his heart rate and blood pressures. OLLIE ESTRADA MD CM:CONSTR:REPORT OF CONSULTATION 44 12/03/17 4154 interface
--- NOTE | ~2017-11-30 | EKG ---
[place], [place] ELECTROCARDIOGRAM REPORT NAME: WILDER NEELY UNIT #: [id number] ROOM: [facility] DOCTOR: MABEL DRAFT REPORT BIRTHDATE: [birth year] [facility] Test Date: 2017-11-30 Test Time: 11:32:39 Pat Name: WILDER NEELY Department: Room: Gender: Performance Improvement Manager: EKG.CA : 1955 Requested By: BANDAR LEIGH Order Number: [id number] Reading MD: Xavier Tabares MD Measurements Intervals [place] Rate: 68 P: 32 [place]: 165 QRS: 2 QRSD: 151 T: 9 QT: 413 QTc: 440 Interpretive Statements Sinus arrhythmia Right bundle branch block Electronically Signed On 12-03-2017 18:27:35 PDT by Xavier Tabares MD CM:EKGRPT:ELECTROCARDIOGRAM REPORT 1132 1827 BANDAR DWYER DRAFT REPORT BANDAR LEIGH DO
--- NOTE | ~2017-11-30 | EKG ---
[place], [place] ELECTROCARDIOGRAM REPORT NAME: WILDER NEELY UNIT #: [id number] ROOM: [facility] DOCTOR: MABEL DRAFT REPORT BIRTHDATE: [birth year] [facility] Test Date: 2017-11-30 Test Time: 17:33:29 Pat Name: WILDER NEELY Department: Room: Gender: Special Effects Specialist: : 1955 Requested By: BANDAR ELIGH Order Number: [id number] Reading MD: Xavier Tabares MD Measurements Intervals [place] Rate: 78 P: 54 [place]: 161 QRS: 2 QRSD: 154 T: 19 QT: 409 QTc: 466 Interpretive Statements Sinus rhythm Right bundle branch block No change from earlier ECG this date. Electronically Signed On 12-03-2017 18:41:36 PDT by Xavier Tabares MD CM:EKGRPT:ELECTROCARDIOGRAM REPORT [id number] 1841 BANDAR DWYER DRAFT REPORT BANDAR LEIGH DO
--- NOTE | ~2017-11-30 | PR ---
[place], [place] PROGRESS NOTE [id number] UNIT #: [id number] ROOM: 515 DOCTOR: JENNIFER CHENG MD BIRTHDATE: [birth year] DOS: SUBJECTIVE: The patient is doing fine without any complaints this morning. He is awaiting a stress test. OBJECTIVE: VITAL SIGNS: Blood pressure is 107/58, pulse of 52, respirations 16, temperature 98.1. LUNGS: Diminished breath sounds, clear. HEART: Regular. ABDOMEN: Obese, soft. EXTREMITIES: Without any edema. ASSESSMENT AND PLAN: 1. Precordial chest pain, awaiting a stress test that is negative, the plan is to discharge him to home. 2. Benign hypertension. Pressures are much better after holding his antihypertensives and advised to go back to his old dosage, before that had been increased by [facility]. JENNIFER CHENG MD CM:PNTRANS [id number] JENNIFER CHENG MD 12/03/17 2349 interface
--- NOTE | ~2017-11-30 | EKG ---
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 Electronically Signed On 12-03-2017 18:34:25 PDT by Xavier Tabares MD CM:EKGRPT:ELECTROCARDIOGRAM REPORT 1425 1834 BANDAR DWYER DRAFT REPORT BANDAR LEIGH DO
--- NOTE | ~2017-11-30 | DS ---
[place], [place] DISCHARGE SUMMARY NAME: WILDER NEELY UNIT #: [id number] ROOM: 515 DOCTOR: JENNIFER CHENG MD BIRTHDATE: [birth year] DOS: 12/03/2017 DIAGNOSES: 1. Precordial chest pain. 2. Benign hypertension with hypotension during this admission. 3. Bipolar disorder. 4. Generalized seizure disorder. 5. Posttraumatic stress disorder. 6. Major depression, moderate, recurrent. 7. Gastroesophageal reflux disease. 8. Chronic low back pain. HOSPITAL COURSE: The patient is very well known to us, 62 years old, comes in with complaints of chest pain. The patient states he was advised to come here through by the [facility] to be evaluated in the ER, was admitted. After admission, he was found to be hypotensive. He was given bolus of IV fluids and blood pressure meds were held. Labs were within normal limits. Troponin 3 sets were done, which have come back negative. The patient was seen by Cardiology and they recommended the patient have a stress test on Sunday, so he stayed. Today, he will undergo a stress. If it is negative, the plan is to discharge him to home. Follow up with PCP. If positive, then he will need a cardiac cath. DISCHARGE MEDICATIONS: Will be allopurinol 100 daily, Lipitor 10 daily, Sinemet 25/250 twice a day, Coreg 25 b.i.d., Plavix 75 daily, dorzolamide eye drops t.i.d., enalapril 10 daily, gabapentin 300 b.i.d., Lamictal 25 b.i.d., mirtazapine 30 at bedtime, and oxybutynin 5 b.i.d., and cyclobenzaprine 10 t.i.d. JENNIFER CHENG MD CM:DISCHARG 2 JENNIFER CHENG MD 12/03/17811 interface
--- NOTE | ~2017-11-30 | WRIGHTHP ---
[place], [place] PATIENT HISTORY AND PHYSICAL EXAM NAME: WILDER NEELY [facility] #: [id number] UNIT #: [id number] ROOM: [facility] DOCTOR: JENNIFER CHENG MD BIRTHDATE: [birth year] DOS: 11/30/2017 HISTORY OF PRESENT ILLNESS: The patient is 62 years old, very well known to us, comes in with complaints of chest pain radiating to the left arm. He denies having any nausea and emesis, palpitations, fever, chills, cough, sputum production, or shortness of breath. He was seen in the [facility] and they recommended that he be seen in the Emergency Room and possibly admitted. He denies having any other complaints. 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 Last hospitalization in 06/2017 with ambulatory dysfunction. 2. Right hemiparesis. 3. Generalized seizure disorder. 4. Posttraumatic stress disorder. 5. 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 6. Chronic low back pain. 7. Benign hypertension. 8. History of a perforated bowel with colostomy and reversal. 9. Gastroesophageal reflux disease. 10. Bipolar type 2. MEDICATIONS: He is currently on are dorzolamide eyedrops, allopurinol 100 daily, atorvastatin 10 daily, carbidopa/levodopa 25/250 twice a day, carvedilol 25 b.i.d., Plavix 75 daily, cyclobenzaprine 10 t.i.d., enalapril 10 daily, gabapentin 300 b.i.d., Lamictal 25 b.i.d., mirtazapine 30 at bedtime, oxybutynin 5 b.i.d. SOCIAL HISTORY: Smoker of about half a pack to 1 pack of cigarettes a day. Denies using any alcohol. Lives at home with his . PHYSICAL EXAMINATION: GENERAL: He is awake and alert and oriented. VITAL SIGNS: Blood pressure is 104/60, pulse of 50, respirations 16, temperature 97.3. LUNGS: Clear. HEART: Regular. ABDOMEN: Obese. EXTREMITIES: Without any edema. No rebound tenderness noticed over the chest wall. IMAGING: EKG, sinus. ASSESSMENT AND PLAN: 1. The patient admitted with precordial chest pain, rule out myocardial infarction protocol was ordered and has come back negative. Echocardiogram is ordered. The patient is placed on nitrates and Lovenox. Cardiology consultations obtained. 2. History of chronic reflux. The patient states that the Motrin is upsetting his stomach. He wants something else for his pain. [place], [place] PATIENT HISTORY AND PHYSICAL EXAM NAME: WILDER NEELY UNIT #: [id number] ROOM: [facility] DOCTOR: JENNIFER CHENG MD BIRTHDATE: [birth year] 3. Bipolar disorder, major depression with psychosis. Continue his home medications. JENNIFER CHENG MD CM:HISPHYS:PATIENT HISTORY AND PHYSICAL EXAMINATION [phone] JENNIFER CHENG MD 12/01/17 0700 interface
--- NOTE | ~2017-11-30 | PR ---
[place], [place] PROGRESS NOTE NAME: WILDER NEELY [facility] #: [id number] UNIT #: [id number] ROOM: 515 DOCTOR: SHILPI JACKSON MD BIRTHDATE: [birth year] DOS: 12/03/2017 CARDIOLOGY PROGRESS NOTE SUBJECTIVE: The patient was seen in the Cardiology Department on 12/03/2017 just prior to his stress test. He is a 62-year-old man with risk factors for coronary artery disease including hypertension and a previous stroke. He does have bipolar type 2 disorder. He has had a seizure disorder in the past. He is also troubled by major depression. He tells me that in the last 2 years, 3 of his siblings have passed. A younger sister recently of a heart attack and two other siblings of cancer. The day after his sister was buried, he developed chest pain. He has had intermittent chest pain since then. He states that in fact he has had intermittent sharp chest pains for some time. To his knowledge, however, he has never had a heart attack. Since he has been in the hospital, electrocardiograms have shown no acute changes and serial troponin levels have been unremarkable. This morning, he does note that his chest is a bit sore and it hurts a little bit to take a deep breath. PAST HISTORY: Includes hypertension and a remote history of stroke. He still does have some weakness on his left side. PHYSICAL EXAMINATION: VITAL SIGNS: His pulse is 57 and regular, blood pressure 135/80. He is afebrile. He weighs 123.6 kg and has body mass index of 40.3. HEENT: Normocephalic and atraumatic. Extraocular muscles are intact. Sclerae are clear. Pupils equal, round, and react to light. The oral mucosa is moist. Tongue is midline. NECK: Supple. He has no jugular distention. Carotids are full. I heard no bruits. He had no neck or supraclavicular masses and no thyromegaly. LUNGS: Respirations are unlabored. His chest is clear to auscultation and percussion. He has no presacral edema or chest wall tenderness. HEART: Has a regular rhythm. He has a fourth heart sound, but no third heart sound or murmur. The PMI is not displaced. ABDOMEN: Benign. EXTREMITIES: Showed no edema. He does seem to be stable from a cardiac standpoint. We will finish his workup today with a pharmacologic stress test. If that looks normal, then I would just continue risk factor modification. I thank Dr. Bravo for asking our advice regarding his care. [place], [place] PROGRESS NOTE NAME: WILDER NEELY [place] UNIT #: [id number] ROOM: [facility] DOCTOR: SHILPI JACKSON MD BIRTHDATE: [birth year] SHILPI JACKSON MD CM:PNTRANS [id number] SHILPI JACKSON MD 12/04/17 0007 interface
[~2017-11-30 11:28] MED LIST changes: +AMLODIPINE BESY10 MG PO
[2017-11-30 11:56] LABS: BASO % 0.6 % (0.0-1.0); EOS # 0.2 10*3/uL (0.0-0.4); EOS % 2.9 % (1.0-4.0); HEMATOCRIT 46.4 % (42.0-52.0); HEMOGLOBIN 15.6 g/dl (14.0-18.0); LYMPH # 1.9 10*3/uL (1.3-4.4); LYMPH % 27.5 % (27.0-41.0); MEAN CELL VOLUME 89.4 fl (80.0-94.0); MEAN CORPUSCULAR HGB 30.1 pg (27.0-31.0); MEAN CORPUSCULAR HGB CONC 33.6 g/dl (33.0-37.0); MEAN PLATELET VOLUME 9.1 fl (9.6-12.3); MONO # 0.6 10*3/uL (0.1-1.0); MONO % 8.5 % (3.0-9.0); NEUT # 4.2 10*3/uL (2.3-7.9); NEUT % 60.2 % (47.0-73.0); PLATELET COUNT AUTOMATED 228 10*3/uL (130-400); RED BLOOD COUNT 5.19 10*6/uL (4.50-5.90); RED CELL DISTRI WIDTH 12.5 % (0-14.5)
[2017-11-30 12:08] LABS: ACT PARTIAL THROMBO TIME 24.6 SECONDS (20.8-31.5); INTERNATIONAL NORM RATIO 0.9 (2.0-3.5)
[2017-11-30 12:18] LABS: ALBUMIN 3.8 gm/dl (3.1-4.5); ALKALINE PHOSPHATASE 62 U/L (45-117); BUN 15 mg/dl (7-24); CHLORIDE 107 mmol/L (98-107); CREATININE 1.17 mg/dL (0.70-1.30); POTASSIUM 4.4 mmol/L (3.5-5.1); SGOT/AST 16 IU/L (3-35); SGPT/ALT 25 U/L (12-78); SODIUM 141 mmol/L (136-145); TOTAL PROTEIN 7.4 gm/dL (6.4-8.2)
[2017-11-30 12:22] LABS: TROPONIN I < 0.015 ng/ml (<0.045)
[2017-11-30] MEDS ORDERED: ZYLOPRIM100 MG PO (15:17)
[2017-11-30] MEDS ORDERED: LIPITOR10 MG PO (15:17)
[2017-11-30] MEDS ORDERED: SINEMET 25-2501 EACH PO (15:18)
[2017-11-30] MEDS ORDERED: CARVEDILOL25 MG PO (15:18)
[2017-11-30] MEDS ORDERED: CLOPIDOGREL75 MG PO (15:19)
[2017-11-30] MEDS ORDERED: DORZOLAMIDE 2%10 ML OP (15:20)
[2017-11-30] MEDS ORDERED: ENALAPRIL10 MG PO (15:20)
[2017-11-30] MEDS ORDERED: NEURONTIN300 MG PO (15:22)
[2017-11-30] MEDS ORDERED: LAMICTAL CD25 MG PO (15:22)
[2017-11-30] MEDS ORDERED: MIRTAZAPINE30 M1 PO (15:23)
[2017-11-30] MEDS ORDERED: OXYBUTYNIN5 MG PO (15:24)
[2017-11-30] MEDS ORDERED: CYCLOBENZAPRINE10 MG PO (15:24)
[2017-12-01] VITALS: BP 104/60
[2017-12-01 06:29] LABS: CHOLESTEROL 175 mg/dL (<200); TRIGLYCERIDES 297 mg/dl (<150); VLDL CHOLESTEROL 59 mg/dL (6-40)
[2017-12-01 06:30] LABS: HDL CHOLESTEROL 38 mg/dl (40-60); LDL CHOLESTEROL 78 mg/dL (9-159)
[2017-12-01 08:00] VITALS: BP 98/68
[2017-12-01 12:00] VITALS: BP 98/62
[2017-12-01 17:05] VITALS: BP 70/34
[2017-12-01 18:31] VITALS: BP 112/78
[2017-12-01 20:00] VITALS: BP 119/69
[2017-12-02] VITALS: BP 119/71
[2017-12-02 08:00] VITALS: BP 120/76
[2017-12-02 12:00] VITALS: BP 144/81
[2017-12-02 16:00] VITALS: BP 103/67
[2017-12-02 18:06] VITALS: BP 110/72
[2017-12-02 20:00] VITALS: BP 136/87
[2017-12-03] VITALS: BP 107/58
[2017-12-03 08:00] VITALS: BP 135/80
[2017-12-03 12:00] VITALS: BP 154/86
[2017-12-03] MEDS ORDERED: ATORVASTATIN CA80 M1 PO (15:57)
[2017-12-03 16:00] VITALS: BP 130/81
[2017-12-03] MEDS ORDERED: LIPITOR80 MG PO (16:22)
== END 2017-12-03 16:54 | disposition home or self-care (01) | DRG 313 ==
LOC: ED 11:28 → 5E 13:27 → EDHOLD 13:27 → 5E 13:39
PROVIDERS: Emergency Medicine; Internal Medicine
PROC: 3E073KZ Introduction of Other Diagnostic Substance into Coronary Artery, Percutaneous Approach (ICD-10-PCS; principal; 2017-12-03)
PROC: 4A02XM4 Measurement of Cardiac Total Activity, External Approach (ICD-10-PCS; principal; 2017-12-03)
DX: R07.2 Precordial pain (principal); I95.9 Hypotension, unspecified; G20 Parkinson's disease; F33.1 Major depressive disorder, recurrent, moderate; E66.01 Morbid (severe) obesity due to excess calories; I69.351 Hemiplegia and hemiparesis following cerebral infarction affecting right dominant side; Z68.41 Body mass index [BMI] 40.0-44.9, adult; M54.5 Low back pain; E78.00 Pure hypercholesterolemia, unspecified; E78.5 Hyperlipidemia, unspecified; F41.9 Anxiety disorder, unspecified; M51.37 Other intervertebral disc degeneration, lumbosacral region; G89.29 Other chronic pain; I10 Essential (primary) hypertension; K21.9 Gastro-esophageal reflux disease without esophagitis; M10.9 Gout, unspecified; G40.909 Epilepsy, unspecified, not intractable, without status epilepticus; F43.10 Post-traumatic stress disorder, unspecified; Z88.6 Allergy status to analgesic agent; Z91.041 Radiographic dye allergy status; Z88.8 Allergy status to other drugs, medicaments and biological substances

== ENCOUNTER 2018-03-22 09:03 | Emergency (ER) | payer MEDICARE ==
[~2018-03-22] VITALS: Ht 175.2 cm; Wt 121.1 kg
[~2018-03-22 09:03] MED LIST changes: +ATORVASTATIN CA80 M1 PO; +CARVEDILOL25 MG PO; +DORZOLAMIDE 2%10 ML OP; +ENALAPRIL10 MG PO; +LAMICTAL CD25 MG PO; +LIPITOR80 MG PO; +MIRTAZAPINE30 M1 PO; +NEURONTIN300 MG PO; +SINEMET 25-2501 EACH PO; +ZYLOPRIM100 MG PO
[2018-03-22 09:20] VITALS: BP 152/102
== END 2018-03-22 09:45 | disposition home or self-care (01) ==
LOC: ED 09:03
DX: M25.562 Pain in left knee (principal); I10 Essential (primary) hypertension; K21.9 Gastro-esophageal reflux disease without esophagitis; M19.90 Unspecified osteoarthritis, unspecified site; G40.909 Epilepsy, unspecified, not intractable, without status epilepticus; E78.5 Hyperlipidemia, unspecified; E78.00 Pure hypercholesterolemia, unspecified; Z88.6 Allergy status to analgesic agent; Z91.041 Radiographic dye allergy status; Z88.8 Allergy status to other drugs, medicaments and biological substances; Z79.899 Other long term (current) drug therapy; Z86.73 Personal history of transient ischemic attack (TIA), and cerebral infarction without residual deficits

== ENCOUNTER → 2018-06-14 | Outpatient (CLI) | payer MEDICARE ==
[~2018-06-14] MED LIST changes: +CRESTOR40 M1 PO; +Depakote500 MG PO; +LATUDA80 M1 PO; +NORCO 5-325 TA1 EACH PO
== END | disposition home or self-care (01) ==
LOC: CARD 08:18
DX: Z01.810 Encounter for preprocedural cardiovascular examination (principal); I10 Essential (primary) hypertension

== ENCOUNTER 2018-11-29 10:29 | Inpatient (IN) | payer OTHER ==
[~2018-11-29] VITALS: Ht 176.5 cm; Wt 129.1 kg
[2018-11-29] VITALS (7 sets, daily range): BP systolic 137–168; BP diastolic 89–102
--- NOTE | ~2018-11-29 | EKG ---
[place], [place] ELECTROCARDIOGRAM REPORT NAME: WILDER NEELY UNIT #: [id number] ROOM: 529 DOCTOR: MABEL DRAFT REPORT BIRTHDATE: [birth year] [facility] Test Date: 2018-11-29 Test Time: 13:41:26 Pat Name: WILDER NEELY Department: Room: 529 Gender: M Kettleman: Melanie Kraft : 1955 Requested By: BANDAR LEIGH Order Number: [id number] Reading MD: Santa Keane MD Measurements Intervals [place] Rate: 66 P: 31 ME: 163 QRS: -3 QRSD: 154 T: 2 QT: 435 QTc: 456 Interpretive Statements Sinus rhythm Right bundle branch block Baseline wander in lead(s) I,III,aVR,aVL,aVF,V1 Compared to ECG 11/29/2018 10:32:54 No significant changes Electronically Signed On 11-30-2018 9:19:34 PDT by Santa Keane MD CM:EKGRPT:ELECTROCARDIOGRAM REPORT 1341 0919 BANDAR DWYER DRAFT REPORT BANDAR LEIGH DO
--- NOTE | ~2018-11-29 | PR ---
[place], [place] PROGRESS NOTE NAME: WILDER NEELY UNIT #: [id number] ROOM: 529 DOCTOR: JENNIFER CHENG MD BIRTHDATE: [birth year] DOS: SUBJECTIVE: The patient is doing well, has no complaints today. The patient is doing well with the pain medications. OBJECTIVE: VITAL SIGNS: Graphic trend shows a pressure of 96/67, pulse of 68, respirations 16, temperature 97.7. LUNGS: Clear. HEART: Regular. ABDOMEN: Soft. EXTREMITIES: Without any edema. ASSESSMENT AND PLAN: 1. Chest pain, ruled out, this is most likely noncardiac. 2. Adult failure to thrive with dizziness and difficulty to ambulate. PT/OT has been consulted. Social service has been consulted for possible placement to [facility]. 3. Right shoulder pain following a fall. Awaiting an MRI of the shoulder. JENNIFER CHENG MD CM:PNTRANS [phone] JENNIFER CHENG MD 12/01/18 2308 interface
--- NOTE | ~2018-11-29 | DS ---
[place], [place] DISCHARGE SUMMARY [id number] #: [id number] ROOM: 529 DOCTOR: JENNIFER CHENG MD BIRTHDATE: [birth year] DOS: 12/03/2018 DIAGNOSES: 1. Fall with acute pain in the shoulder, MRI showing AC joint sprain. No rotator cuff tear was seen. 2. Dizziness with negative carotid Doppler, negative CT of the head. 3. Bipolar disorder. 4. Chest pain, ruled out for myocardial infarction, negative cardiac catheterization in 2018. 5. Benign hypertension. 6. Generalized seizure disorder, posttraumatic stress disorder, moderate depression, recurrent chronic back pain. MEDICATIONS ON DISCHARGE: Will be carbidopa/levodopa 25/250 1 tablet twice a day, Coreg 25 b.i.d., Plavix 75 daily, mirtazapine 30 daily, rosuvastatin 40 daily, benztropine 0.5 b.i.d., Depakote 1000 at bedtime, Latuda 80 at bedtime and [place] 5/325 three times a day p.r.n. Consult Dr. Luu as an outpatient. HOSPITAL COURSE: This patient is a 63-year-old, comes in with complaints of acute pain, dizziness and lightheadedness and chest pain. Please refer to H and P for details. After admission, ruled out [place] protocol was done and the patient's enzymes did come back negative. The patient had a cardiac catheterization last year, which was negative. He also complains of severe right shoulder pain. MRI of the shoulder was done. Dr. Alarcon was consulted. Dr. Alarcon is unfortunately not available during this week. MRI showed no rotator cuff tear. The patient has been approved by insurance to go to [facility]. The plan is to discharge today and follow with Dr. Luu as an outpatient. PT/OT has been consulted. JENNIFER CHENG MD CM:DISCHARG 5 JENNIFER CHENG MD 12/03/1836 interface
--- NOTE | ~2018-11-29 | EKG ---
[place], [place] ELECTROCARDIOGRAM REPORT NAME: WILDER NEELY UNIT #: [id number] ROOM: 529 DOCTOR: MABEL DRAFT REPORT BIRTHDATE: [birth year] [facility] Test Date: 2018-11-29 Test Time: 17:02:29 Pat Name: WILDER NEELY Department: Room: 529 Gender: M Street Light Servicer Helper: Melanie Kraft : 1955 Requested By: BANDAR LEIGH Order Number: [id number] Reading MD: Santa Keane MD Measurements Intervals [place] Rate: 88 P: 44 VT: 165 QRS: 18 QRSD: 154 T: 22 QT: 407 QTc: 493 Interpretive Statements Sinus rhythm Right bundle branch block Compared to ECG 11/29/2018 10:32:54 No significant changes Electronically Signed On 11-30-2018 9:19:44 PDT by Santa Keane MD CM:EKGRPT:ELECTROCARDIOGRAM REPORT 01 [id number] BANDAR DWYER DRAFT REPORT BANDAR LEIGH DO
--- NOTE | ~2018-11-29 | PR ---
[place], [place] PROGRESS NOTE [id number] UNIT #: [id number] ROOM: 529 DOCTOR: JENNIFER CHENG MD BIRTHDATE: [birth year] DOS: 12/03/2018 SUBJECTIVE: The patient is doing better, does not have any new complaints. Holding his right shoulder. OBJECTIVE: VITAL SIGNS: Graphic trend shows a pressure of 98/50, pulse of 73, respirations 18, temperature 97.8. LUNGS: Diminished breath sounds. Clear. HEART: Regular. ABDOMEN: Obese, soft, nontender. EXTREMITIES: Without any edema. MRI of the shoulder shows osteoarthritis, subchondral changes of the bony glenoid, extensive edema of the acromioclavicular joint, which is posttraumatic sprain. No fracture or rotator cuff tear was seen. Ultrasound of the carotids was negative. ASSESSMENT AND PLAN: 1. A 63-year-old with fall and ambulatory dysfunction, is planning to go to [facility] today. 2. Chest pain, ruled out for myocardial infarction with a negative catheterization last year. No further workup planned. Cardiology consultation was obtained. 3. Bipolar disorder, on multiple medications, which are continued. JENNIFER CHENG MD CM:PNTRANS [id number] JENNIFER CHENG MD 12/03/18 1056 interface
--- NOTE | ~2018-11-29 | WRIGHTHP ---
[place], [place] PATIENT HISTORY AND PHYSICAL EXAM NAME: WILDER NEELY [facility] #: [id number] UNIT #: [id number] ROOM: 529 DOCTOR: JENNIFER CHENG MD BIRTHDATE: [birth year] DOS: 11/29/2018 HISTORY OF PRESENT ILLNESS: The patient is 63 years old, known to me from previous admissions. The patient says that he had a fall about a week ago, hit his right shoulder and has been having pain ever since then. He is unable to lift his right shoulder up because of the pain. He also has been having some chest pains and so decided to come into the Emergency Room. He denies having any fever, chills, any abdominal pain, nausea, any emesis. He has continued request of IV pain medications. PAST MEDICAL HISTORY: Significant for: 1. Last hospitalization in 10/2017 with a negative stress test. He underwent a cardiac catheterization 11/2017 at [facility], which showed no coronary artery disease. 2. Benign hypertension. 3. Bipolar disorder. 4. Generalized seizure disorder. 5. Posttraumatic stress disorder. 6. Major depression, moderate, recurrent. 7. Chronic low back pain. MEDICATIONS: Medications that he is currently on are benztropine 0.5 b.i.d., Sinemet 25/250 one tablet b.i.d., carvedilol 25 b.i.d., Plavix 75 daily, Depakote 1000 at bedtime, Latuda 80 daily, mirtazapine 30 daily, rosuvastatin 40 daily. SOCIAL HISTORY: Nonsmoker, does not use any alcohol. PHYSICAL EXAMINATION: GENERAL: He is awake and alert and oriented, was in deep sleep and I woke him. VITAL SIGNS: Blood pressure is 121/69, pulse of 75, respirations 18, and temperature 97.7. LUNGS: Clear. HEART: Regular. ABDOMEN: Obese, soft. EXTREMITIES: Without any edema. Right shoulder, some tenderness in the acromioclavicular area. Range of motion was not tested because the patient complains of severe pain and states that he is unable to move his shoulder. LABORATORY DATA: Right shoulder x-ray was unremarkable except for some mild arthritis. No acute fractures were seen. Three sets of troponins were negative. Electrocardiogram shows sinus rhythm, right bundle branch. CT of the head was negative. ASSESSMENT AND PLAN: The patient who comes in with: 1. Chest pain, rule out myocardial infarction, but was negative. Had a catheterization last year, which was clean. We will ask Cardiology for an opinion. 2. Shoulder pain after a fall. MRI of the right shoulder was ordered. [place], [place] PATIENT HISTORY AND PHYSICAL EXAM NAME: WILDER NEELY UNIT #: [id number] ROOM: 529 DOCTOR: JENNIFER CHENG MD BIRTHDATE: [address] Alarcon obtained. 3. Falls. The patient states that he is unsteady on his feet. PT/OT has been ordered. CT of the head was negative. We will also check a carotid Doppler. The plan is to try to place him to [facility]. JENNIFER CHENG MD CM:HISPHYS:PATIENT HISTORY AND PHYSICAL EXAMINATION 2 3 JENNIFER CHENG MD 11/30/18 0716 interface
--- NOTE | ~2018-11-29 | PR ---
[place], [place] PROGRESS NOTE NAME: WILDER NEELY UNIT #: [id number] ROOM: 529 DOCTOR: JENNIFER CHENG MD BIRTHDATE: [birth year] DOS: SUBJECTIVE: The patient is not feeling too bad, but continues to complain of shoulder pain and inability to ambulate and inability to lift his shoulder up. OBJECTIVE: VITAL SIGNS: Graphic trend shows a pressure of 116/65, pulse of 63, respirations 20, temperature 98.2. LUNGS: Clear. HEART: Regular. ABDOMEN: Soft. EXTREMITIES: Without any edema. LABORATORY DATA: Troponin is all within normal limits. ASSESSMENT AND PLAN: 1. Right shoulder pain following a fall. MRI pending. 2. Adult failure to thrive. The patient to go to [facility]. Social service has been consulted. Carotid Doppler will be ordered. JENNIFER CHENG MD CM:PNTRANS [id number] JENNIFER CHENG MD 12/02/18 2339 interface
--- NOTE | ~2018-11-29 | EKG ---
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
[~2018-11-29 10:29] MED LIST changes: -CRESTOR40 M1 PO; -Depakote500 MG PO; -LATUDA80 M1 PO
[2018-11-29 10:54] LABS: BASO % 0.3 % (0.0-1.0); EOS # 0.2 10*3/uL (0.0-0.4); EOS % 3.5 % (1.0-4.0); HEMATOCRIT 45.7 % (42.0-52.0); HEMOGLOBIN 15.5 g/dl (14.0-18.0); LYMPH # 1.7 10*3/uL (1.3-4.4); LYMPH % 25.3 % (27.0-41.0); MEAN CELL VOLUME 88.6 fl (80.0-94.0); MEAN CORPUSCULAR HGB CONC 33.9 g/dl (33.0-37.0); MEAN PLATELET VOLUME 9.2 fl (9.6-12.3); MONO # 0.7 10*3/uL (0.1-1.0); NEUT # 3.9 10*3/uL (2.3-7.9); NEUT % 59.3 % (47.0-73.0); PLATELET COUNT AUTOMATED 230 10*3/uL (130-400); RED BLOOD COUNT 5.16 10*6/uL (4.50-5.90); RED CELL DISTRI WIDTH 12.8 % (0-14.5); WHITE BLOOD COUNT 6.6 10*3/uL (4.8-10.8)
[2018-11-29] MEDS ORDERED: CRESTOR40 M1 PO (10:54)
[2018-11-29] MEDS ORDERED: PRAVACHOL20 MG PO (10:56)
[2018-11-29] MEDS ORDERED: COGENTIN0.5 MG PO (10:57)
[2018-11-29] MEDS ORDERED: Depakote500 MG PO (11:03)
[2018-11-29 11:04] LABS: ACT PARTIAL THROMBO TIME 28.2 SECONDS (20.0-32.1); INTERNATIONAL NORM RATIO 0.9 (2.0-3.5)
[2018-11-29] MEDS ORDERED: LATUDA80 M1 PO (11:04)
[2018-11-29 11:12] LABS: ALBUMIN 3.7 gm/dl (3.1-4.5); ALKALINE PHOSPHATASE 67 U/L (45-117); BUN 18 mg/dl (7-24); CHLORIDE 110 mmol/L (98-107); CREATININE 1.07 mg/dL (0.70-1.30); POTASSIUM 4.3 mmol/L (3.5-5.1); SGOT/AST 22 IU/L (3-35); SGPT/ALT 26 U/L (12-78); SODIUM 140 mmol/L (136-145); TOTAL PROTEIN 7.7 gm/dL (6.4-8.2)
[2018-11-29 11:14] LABS: TROPONIN I < 0.015 ng/ml (<0.045)
--- NOTE | 2018-11-29 13:31 | NUR ---
PT ARRIVED TO FLOOR VIA CART FROM ER. REPORT RECIEVED. PATIENT INFORMATION OBTAINED FROM PATIENT AND CATERERS HELPER. Time: A 63 year old MALE admitted to 5E under services of JENNIFER CHUN MD. Pt. arrived via bed from ER. Chief complaint: SYNCOPE, CHEST PAIN AND BROKEN ROTATOR CUFF. ROSARIO CUNNINGHAM
--- NOTE | 2018-11-29 15:15 | NUR ---
case management received a call from Julia at [facility], she stated patient is 60% service connected and also has medicare A and B along with va services Julia would like patient's clinicals be faxed to [phone] on Sunday, Julia's phone is [phone] ext [phone]
[2018-11-30] VITALS: BP 121/69
--- NOTE | 2018-11-30 06:57 | NUR ---
DR CHENG AWARE THAT THERE IS NO ORTHO COVERAGE TODAY. OKAY WITH CONSULT FOR TOMORROW.
[2018-11-30 08:00] VITALS: BP 110/74
--- NOTE | 2018-11-30 09:55 | NUR ---
SCHEDULED DILAUDID GIVEN FOR RT SHOULDER PAIN RATED 10/10 AND "SHOOTING". WILL MONITOR. OFFERED TO HAVE A K-PAD OREDRED. PT DECLINED, STATES THE "PAIN SHOT" WOULD BE ENOUGH. CALL LIGHT IN REACH.
--- NOTE | 2018-11-30 10:13 | NUR ---
PER PT, DILAUDID WAS EFFECTIVE. PAIN TO RT SHOULDER RATED 1/10. CALL LIGHT IN REACH.
[2018-11-30 12:00] VITALS: BP 100/50
[2018-11-30 16:00] VITALS: BP 92/61
--- NOTE | 2018-11-30 18:06 | NUR ---
SCHEDULED DIALUDID GIVEN FOR PAIN TO RT SHOULDER RATED 8/10. CALL LIGHT IN REACH. WILL MONITOR.
[2018-11-30 20:00] VITALS: BP 125/72
[2018-12-01] VITALS: BP 96/67
[2018-12-01 08:00] VITALS: BP 129/87
--- NOTE | 2018-12-01 08:22 | NUR ---
PT REQUESTED AND RECEIVED IV DILAUDID SLOWLY PER ROUTINE ORDER FOR C/O RIGHT SHOULDER PAIN. RATES PAIN 01/21. WILL MONITOR EFFECTIVENESS. CALL LIGHT WITHIN REACH.
--- NOTE | 2018-12-01 09:00 | NUR ---
DILAUDID RELIEVING PAIN PER PT. WILL CONTINUE TO MONITOR.
[2018-12-01 11:00] VITALS: BP 117/63
[2018-12-01 12:00] VITALS: BP 141/98
--- NOTE | 2018-12-01 15:00 | NUR ---
PHYSICAL THERAPY PT EVAL COMPLETED 12/01/18: FULL EVALUATION TO FOLLOW. RECOMMEND PT WHILE HERE TO ADDRESS DECREASED STRENGTH, ENDURANCE, BALANCE AND THUS FUNCTIONAL MOBILITY ALONG WITH R SHOULDER DEFICITS DUE TO FALL. PT EVAL IS MODERATE COMPLEXITY: 48140. PREC: FALL RISK; PARKINSONS, R SHOULDER PAIN. D/C REC: SNF ON D/C TO ALLOW HIM TO REGAIN PLOF. THANK YOU FOR REFERRAL EUN [facility]ISS PT
[2018-12-01 16:00] VITALS: BP 106/79
--- NOTE | 2018-12-01 17:02 | NUR ---
ROUTINE DILAUDID GIVEN AT THIS TIME PER ORDER. PT RATES SHOULDER PAIN 12/21. WILL MONITOR EFFECTIVENESS.
--- NOTE | 2018-12-01 17:50 | NUR ---
IV DILAUDID EFFECTIVE PER PT.
[2018-12-01 20:00] VITALS: BP 157/87
--- NOTE | 2018-12-01 21:05 | NUR ---
PT IS ASLEEP IN BED AT THIS TIME. RESPS APPEAR TO BE REGULAR AND NONLABORED. THERE ARE NO S/S OF DISTRESS NOTED. CALL LIGHT WITHIN REACH, BED LOW. WILL CONTINUE TO MONITOR.
[2018-12-02] VITALS: BP 116/65
--- NOTE | 2018-12-02 07:46 | NUR ---
IV DILAUDID GIVEN PER PRN ORDER FOR C/O RIGHT SHOULDER PAIN. RATES PAIN 8/10. WILL MONITOR EFFECTIVENESS. MRI FORM COMPLETED AT THIS TIME.
[2018-12-02 08:00] VITALS: BP 132/92
--- NOTE | 2018-12-02 08:30 | NUR ---
Occupational Therapy evaluation completed on 5 with full eval to follow. Precautions include fall risk, pain/limited AROM RUE, parkinsons,moderate complexity level 68480 via chart review, testing and evalaution. Recommmend OT per pOC and SNF to enable safe return home to prior level of function. Thank you for this referral. Jerica Black OTR/L
--- NOTE | 2018-12-02 08:32 | NUR ---
IN TO SEE PATIENT.
--- NOTE | 2018-12-02 08:44 | NUR ---
Patient requesting a referral to [facility], contacted facility and faxed referral. 3 night stay completed. Waiting on review/acceptance.
--- NOTE | 2018-12-02 09:18 | NUR ---
PATIENT OFF FLOOR VIA W/C FOR SCHEDULED U/S AND MRI.
--- NOTE | 2018-12-02 10:24 | NUR ---
PATIENT RETURNED TO ROOM AT THIS TIME.
--- NOTE | 2018-12-02 11:00 | NUR ---
Senior Wealth Advisor in to talk to patient. Patient states lives at home with his . There are 14 steps in the home. Physician: Dr. Mainor Kebede [facility]: [facility] services: has had [facility] in the past but not currently Patient's level of ADLs: MINIMAL ASSIST Patient has working utilities: yes DME: wheeled walker Follow-up physician's appointment after d/c: he prefers to make his own follow up appt after discharge Does patient want to access PORTAL?: no Discharge plan discussed with patient. He lives at home with his . He is independent in his ADLs and ambulates with a wheeled walker. Discussed short term SNF and he is agreeable. When provided with a list of facilities he chose [facility]. neighborhood planner notified. SARABJIT LAUREANO
--- NOTE | 2018-12-02 11:21 | NUR ---
PHYSICAL THERAPY PT SUPINE IN BED STARTING TO EAT HIS LUNCH UPON ARRIVAL. PT STATED THAT HE IS "WORE OUT" FOR ALL OF HIS TEST THIS MORNING AND WOULD LIKE TO EAT LUNCH AND NAP. WILL TRY FOR THERAPY LATER TODAY OR AT A LATER DATE. CONT WITH POC. AUSTIN LOPEZ PTA
[2018-12-02 12:00] VITALS: BP 141/90
--- NOTE | 2018-12-02 12:04 | NUR ---
[facility] to the [facility]. Patient is 70% connected and can go to a VA associated facility. Discussed with patient and he wishes to go [facility] and has Medicare and AARP. He states Ángel Flores does all of the needed paperwork for [facility] to pay for it as the [facility] in [place] was the one who sent him to the hospital here. Awaiting call from [facility] social insurance analyst.
--- NOTE | 2018-12-02 13:26 | NUR ---
ROUTINE DILAUDID GIVEN PER ORDER FOR C/O RIGHT SHOULDER PAIN. RATES PAIN 8/10. WILL MONITOR EFFECTIVENESS.
--- NOTE | 2018-12-02 14:30 | NUR ---
EARLIER DILAUDID EFFECTIVE AT THIS TIME. WILL CONTINUE TO MONITOR.
--- NOTE | 2018-12-02 14:30 | NUR ---
Patient resting quietly with no c/o discomfort. Respirations easy and regular. Vital signs stable. No overt distress. CYNDEE MERCHANT
[2018-12-02 16:00] VITALS: BP 128/84
--- NOTE | 2018-12-02 19:46 | NUR ---
24 HR chart check completed.
[2018-12-02 20:00] VITALS: BP 138/72; BP 147/94
--- NOTE | 2018-12-02 20:42 | NUR ---
RESTING IN BED. RESPIRATIONS EASY. LUNGS DIMINISHED, CLEAR. PULSE OX 97% RA. TRACE BLE EDEMA. C/O PAIN TO RIGHT SHOULDER RATING AN 8, MEDICATED WITH DILAUDID IV PER ROUTINE ORDER. CALL LIGHT WITHIN REACH. WILL MONITOR
--- NOTE | 2018-12-02 23:00 | NUR ---
EARLIER DILAUDID APPEARS EFFECTIVE. SLEEPING
[2018-12-03] VITALS: BP 98/50
--- NOTE | 2018-12-03 00:30 | NUR ---
SLEEPING. NO DISTRESS NOTED. RESPIRATIONS EASY. VSS. CALL LIGHT WITHIN REACH
--- NOTE | 2018-12-03 04:52 | NUR ---
AWAKENS. C/O PAIN TO RIGHT SHOULDER RATING AN 8. MEDICATED WITH ROUTINE DILAUDID. CALL LIGHT WITHIN REACH. WILL MONITOR
--- NOTE | 2018-12-03 06:00 | NUR ---
DILAUDID EFFECTIVE. SLEEPING
--- NOTE | 2018-12-03 09:15 | NUR ---
PHYSICAL THERAPY Patient seen this am 1;1 for therapy visit and was resting supine in bed upon therapist arrival. Patient reports 8/10 R shoulder pain at rest and stated his arm actually feels better while standing up. Patient transfers supine to sit EOB with CGA and ambulates AREA FIELD PERSON/CGA, 40'x 1, demonstrating "waddling", unsteady gait pattern, with decreased stride. Patient also fatigues quickly and c/o of B LE weakness. Patient returned to EOB sit and after a brief seated rest break completed B LE therex, all planes, x 15 reps each. Patient returned to supine in bed and remained with call light, tray table, cell phone and bed alarm for safety. Will continue per POC as tolerated, total treatmen time 23 minutes. Joo Cook, INGOT SUPERVISOR
--- NOTE | 2018-12-03 10:35 | NUR ---
patient accepted to [facility], 3 night stay complete. patient is ok to go when medically stable for discharge.
--- NOTE | 2018-12-03 10:43 | NUR ---
Patient is discharged to [facility], transportation scheduled for 2:30 PM. NH, nursing, steward/stewardess night, and left voicemail for daughter.
--- NOTE | 2018-12-03 10:46 | NUR ---
Pt was seen for OT x 15 minutes beginning with demonstration/instructions for RUE exercises to improve shoulder ROM ADLs. While sitting at EOB, pt performed right shoulder flexion & ab/adduction exercises x 10 reps with 1 cue for correct procedures. Pt also performed SROM with shoulder flexion & protraction x 10 reps each with occasional rests due to discomfort. Encouraged pt to continue with SROM exercises daily to enhance ROM. Continue with POC. Call light within reach. Maggy VIGIL/Yani
[2018-12-03 12:00] VITALS: BP 120/81
--- NOTE | 2018-12-03 14:34 | NUR ---
Discharge instructions reviewed with patient/family. Patient receptive and verbalizes understanding. Follow-up care arranged. Written instructions given to patient/family. ROSARIO CUNNINGHAM
--- NOTE | 2018-12-03 15:22 | NUR ---
OCCUPATIONAL THERAPY CO-SIGN I approve of the Occupational Therapy notes written above. OLEG EDOUARD OTR/Yani
--- NOTE | 2018-12-05 16:41 | NUR ---
PHYSICAL THERAPY CO-SIGN I approve of the Phyical Therapy notes written above. ANDRIY GUERRERO
== END 2018-12-03 14:34 | disposition other institution (70) | DRG 206 ==
LOC: ED 10:29 → 5E 12:08 → EDHOLD 12:08 → 5E 12:22
PROVIDERS: Emergency Medicine; ADMIT Internal Medicine
DX: M94.0 Chondrocostal junction syndrome [Tietze] (principal); F32.1 Major depressive disorder, single episode, moderate; Z68.41 Body mass index [BMI] 40.0-44.9, adult; S43.51XA Sprain of right acromioclavicular joint, initial encounter; R62.7 Adult failure to thrive; R07.9 Chest pain, unspecified; G40.409 Other generalized epilepsy and epileptic syndromes, not intractable, without status epilepticus; I10 Essential (primary) hypertension; R42 Dizziness and giddiness; E78.5 Hyperlipidemia, unspecified; G20 Parkinson's disease; R55 Syncope and collapse; G89.29 Other chronic pain; M54.5 Low back pain; E78.00 Pure hypercholesterolemia, unspecified; M10.9 Gout, unspecified; F43.10 Post-traumatic stress disorder, unspecified; M48.02 Spinal stenosis, cervical region; M51.37 Other intervertebral disc degeneration, lumbosacral region; M48.07 Spinal stenosis, lumbosacral region; K21.9 Gastro-esophageal reflux disease without esophagitis; W18.30XA Fall on same level, unspecified, initial encounter; Y93.89 Activity, other specified; Y92.89 Other specified places as the place of occurrence of the external cause; Y99.8 Other external cause status; Z88.6 Allergy status to analgesic agent; Z88.8 Allergy status to other drugs, medicaments and biological substances; Z91.041 Radiographic dye allergy status; Z91.81 History of falling; Z91.09 Other allergy status, other than to drugs and biological substances; Z86.73 Personal history of transient ischemic attack (TIA), and cerebral infarction without residual deficits; Z83.3 Family history of diabetes mellitus; Z80.8 Family history of malignant neoplasm of other organs or systems; Z82.49 Family history of ischemic heart disease and other diseases of the circulatory system

== ENCOUNTER 2019-01-24 17:46 | Emergency (ER) | payer MEDICARE ==
[~2019-01-24] VITALS: Ht 175.2 cm; Wt 131.1 kg
[~2019-01-24 17:46] MED LIST changes: +CRESTOR40 M1 PO; +Depakote500 MG PO; +LATUDA80 M1 PO
[2019-01-24 18:18] VITALS: BP 150/110
[2019-01-24 18:28] LABS: BASO % 0.4 % (0.0-1.0); EOS # 0.2 10*3/uL (0.0-0.4); EOS % 2.9 % (1.0-4.0); HEMATOCRIT 43.3 % (42.0-52.0); HEMOGLOBIN 14.9 g/dl (14.0-18.0); LYMPH # 1.7 10*3/uL (1.3-4.4); MEAN CELL VOLUME 87.1 fl (80.0-94.0); MEAN CORPUSCULAR HGB CONC 34.4 g/dl (33.0-37.0); MEAN PLATELET VOLUME 9.2 fl (9.6-12.3); MONO # 0.7 10*3/uL (0.1-1.0); MONO % 8.9 % (3.0-9.0); NEUT # 5.6 10*3/uL (2.3-7.9); NEUT % 67.4 % (47.0-73.0); PLATELET COUNT AUTOMATED 225 10*3/uL (130-400); RED BLOOD COUNT 4.97 10*6/uL (4.50-5.90); RED CELL DISTRI WIDTH 13.3 % (0-14.5); WHITE BLOOD COUNT 8.3 10*3/uL (4.8-10.8)
[2019-01-24 18:39] LABS: ACT PARTIAL THROMBO TIME 27.1 SECONDS (20.0-32.1); INTERNATIONAL NORM RATIO 0.9 (2.0-3.5)
[2019-01-24 18:45] LABS: ALBUMIN 3.6 gm/dl (3.1-4.5); BUN 16 mg/dl (7-24); CHLORIDE 107 mmol/L (98-107); CREATININE 1.33 mg/dL (0.70-1.30); POTASSIUM 4.2 mmol/L (3.5-5.1); SGOT/AST 17 IU/L (3-35); SGPT/ALT 13 U/L (12-78); SODIUM 139 mmol/L (136-145); TOTAL PROTEIN 7.6 gm/dL (6.4-8.2)
[2019-01-24 18:49] LABS: ALKALINE PHOSPHATASE 68 U/L (45-117)
[2019-01-24 18:51] LABS: TROPONIN I < 0.015 ng/ml (<0.045)
== END 2019-01-24 19:29 | disposition short-term general hospital (02) ==
LOC: ED 17:46
PROVIDERS: Family Medicine
DX: I63.9 Cerebral infarction, unspecified (principal); G40.909 Epilepsy, unspecified, not intractable, without status epilepticus; E78.00 Pure hypercholesterolemia, unspecified; K21.9 Gastro-esophageal reflux disease without esophagitis; I10 Essential (primary) hypertension; G89.29 Other chronic pain; F17.200 Nicotine dependence, unspecified, uncomplicated; Z86.73 Personal history of transient ischemic attack (TIA), and cerebral infarction without residual deficits; Z88.8 Allergy status to other drugs, medicaments and biological substances; Z91.041 Radiographic dye allergy status; Z88.6 Allergy status to analgesic agent; Z79.899 Other long term (current) drug therapy

== ENCOUNTER → 2019-02-10 | Outpatient (CLI) | payer MEDICARE ==
[2019-02-10 10:49] LABS: HEMATOCRIT 44.8 % (42.0-52.0); HEMOGLOBIN 15.3 g/dl (14.0-18.0); MEAN CORPUSCULAR HGB 29.7 pg (27.0-31.0); MEAN CORPUSCULAR HGB CONC 34.2 g/dl (33.0-37.0); RED BLOOD COUNT 5.15 10*6/uL (4.50-5.90); RED CELL DISTRI WIDTH 13.5 % (0-14.5); WHITE BLOOD COUNT 5.9 10*3/uL (4.8-10.8)
[2019-02-10 11:27] LABS: ALBUMIN 3.7 gm/dl (3.1-4.5); ALKALINE PHOSPHATASE 73 U/L (45-117); BUN 14 mg/dl (7-24); CHLORIDE 109 mmol/L (98-107); CHOLESTEROL 153 mg/dL (<200); CREATININE 1.21 mg/dL (0.70-1.30); HDL CHOLESTEROL 40 mg/dl (40-60); LDL CHOLESTEROL 72 mg/dL (9-159); POTASSIUM 4.5 mmol/L (3.5-5.1); SGOT/AST 15 IU/L (3-35); SGPT/ALT 10 U/L (12-78); SODIUM 138 mmol/L (136-145); TOTAL PROTEIN 7.8 gm/dL (6.4-8.2); TRIGLYCERIDES 207 mg/dl (<150); VLDL CHOLESTEROL 41 mg/dL (6-40)
== END | disposition home or self-care (01) ==
LOC: LAB 10:16
PROVIDERS: Family Medicine
DX: I10 Essential (primary) hypertension (principal); E78.00 Pure hypercholesterolemia, unspecified; R53.83 Other fatigue; E55.9 Vitamin D deficiency, unspecified

== ENCOUNTER 2019-04-21 11:19 | Inpatient (IN) | payer MEDICARE ==
[~2019-04-21] VITALS: Ht 180.3 cm
[2019-04-21 11:29] VITALS: BP 148/83
[2019-04-21 11:49] LABS: BASO % 0.6 % (0.0-1.0); EOS # 0.4 10*3/uL (0.0-0.4); EOS % 5.2 % (1.0-4.0); HEMATOCRIT 45.6 % (42.0-52.0); HEMOGLOBIN 15.9 g/dl (14.0-18.0); LYMPH # 2.2 10*3/uL (1.3-4.4); MEAN CORPUSCULAR HGB CONC 34.9 g/dl (33.0-37.0); MEAN PLATELET VOLUME 8.9 fl (9.6-12.3); MONO # 0.7 10*3/uL (0.1-1.0); MONO % 9.8 % (3.0-9.0); NEUT # 3.4 10*3/uL (2.3-7.9); PLATELET COUNT AUTOMATED 190 10*3/uL (130-400); WHITE BLOOD COUNT 6.7 10*3/uL (4.8-10.8)
--- NOTE | 2019-04-21 11:55 | NUR ---
PT ARRIVES BACK TO ROOM FROM CT WITH PURPOSEFUL SHAKING MOVEMENTS AND HE REMAINS ALERT AND ORIENTED, LOOKING AROUND. PROVIDER AT BEDSIDE MAKES THE DECISION THAT THIS IS NOT SEIZURE ACTIVITY. PT IS IN BED THAT IS IN LOW POSITION. SIDE RAILS UP X2. APPEARS TO BE STABLE AT THIS TIME. KYLIE SCHUMACHER TO MONITOR.
[2019-04-21 12:00] LABS: ACT PARTIAL THROMBO TIME 26.7 SECONDS (20.0-32.1); INTERNATIONAL NORM RATIO 0.9 (2.0-3.5)
[2019-04-21 12:04] LABS: ALBUMIN 3.4 gm/dl (3.1-4.5); ALKALINE PHOSPHATASE 66 U/L (45-117); BUN 13 mg/dl (7-24); CHLORIDE 110 mmol/L (98-107); CREATININE 1.16 mg/dL (0.70-1.30); LIPASE 79 U/L (73-393); POTASSIUM 4.4 mmol/L (3.5-5.1); SGOT/AST 13 IU/L (3-35); SGPT/ALT 12 U/L (12-78); SODIUM 140 mmol/L (136-145); TOTAL PROTEIN 7.4 gm/dL (6.4-8.2)
[2019-04-21 12:06] LABS: TROPONIN I < 0.015 ng/ml (<0.045)
--- NOTE | 2019-04-21 12:27 | NUR ---
PT IS RESTING IN BED SITTING UP. EYES CLOSED. NSR ON THE MONITOR. BED IS IN LOW POSITION. SIDE RAILS UP X2. WILL CONTINUE TO MONITOR.
[2019-04-21 12:38] VITALS: BP 153/96
--- NOTE | 2019-04-21 13:22 | NUR ---
PT PROMPTED THAT WE NEED URINE SAMPLE AND GIVEN A URINAL HE REPORTS THAT HE IS NOT ABLE TO URINATE AT THIS TIME. PT COMPLAINING OF BACK PAIN. DOC MADE AWARE.
[2019-04-21 13:42] VITALS: BP 131/88
--- NOTE | 2019-04-21 14:04 | NUR ---
PT PROVIDED SOMETHING TO DRINK DUE TO NOT BEING ABLE TO PROVIDE URINE SAMPLE AND PT NOT WANTING TO BE STRAIGHT CATHED FOR URINE. VS STABLE. WILL CONTINUE TO MONITOR.
--- NOTE | 2019-04-21 14:19 | NUR ---
PT IS RESTING IN BED PLAYING ON CELLPHONE. HE WAS FINALLY ABLE TO PROVIDE A URINE SAMPLE. VS STABLE AT THIST POINT IN TIME. BED IS IN LOW POSITION. SIDE RAILS UP X2. WILL CONTINUE TO MONITOR.
[2019-04-21 14:28] LABS: BILIRUBIN NEGATIVE (NEGATIVE); BLOOD NEGATIVE (NEGATIVE); CLARITY SL CLOUDY (CLEAR); COLOR YELLOW (YELLOW); GLUCOSE NEGATIVE (NEGATIVE); KETONE NEGATIVE (NEGATIVE); LEUKO ESTERASE NEGATIVE (NEGATIVE); NITRITE NEGATIVE (NEGATIVE); SPECIFIC GRAVITY 1.015 (1.005-1.030); UROBILINOGEN 0.2 E.U./dl (0.2-1.0)
[2019-04-21 14:39] LABS: BACTERIA TRACE; EPITHELIAL CELLS 0-2; WBC 0-2 wbc/hpf (0-5)
--- NOTE | 2019-04-21 15:10 | NUR ---
PT TO MRI.
[2019-04-21 16:20] VITALS: BP 162/100
--- NOTE | 2019-04-21 16:20 | NUR ---
A 63, admitted to 4E, under the services of ALVAREZ Berrios DO with a diagnosis of HTN EMERGENCY. Chief complaint is L SIDE FACE/TONGUE NUMB. Patient arrived via ambulance from ER. Monitor applied. Initial assessment completed. Vital signs taken and recorded. ALVAREZ BERRIOS DO notified of admission to the unit. Orders received. See assessment for past medical history, medications and allergies. Patient and/or family oriented to unit. [facility] visitation policy reviewed. Clothing/patient valuable form completed. LOLIS RUIZ
[2019-04-21] MEDS ORDERED: LISINOPRIL40 MG PO (16:39)
--- NOTE | 2019-04-21 16:52 | NUR ---
CALLED DR. BARILLAS MADE AWARE MEDICATIONS NEED ORDERED AND THEY WAS VERIFIED. AWARE OF BP 162/100 MANUALLY.
--- NOTE | 2019-04-21 19:34 | NUR ---
PT C/O LOWER BACK PAIN, CALLED DR. KHALIL MADE AWARE PT REQUESTING DILAUDID THATS WHAT THEY GAVE HIM IN ER PER PT. HE WILL ORDER SOMETHING.
--- NOTE | 2019-04-21 19:52 | NUR ---
PT C/O LOWER BACK PAIN RATES PAIN 8 ON PAIN SCALE 0-10. MEDICATED WITH NORCO PO PER PRN ORDER, SEE EMAR. CALL LIGHT IN REACH. BED ALARM ON. VISITOR AT HIS SIDE.
[2019-04-21 20:00] VITALS: BP 137/91
[2019-04-22] VITALS: BP 108/74
[2019-04-22 06:29] LABS: BASO % 0.5 % (0.0-1.0); EOS # 0.3 10*3/uL (0.0-0.4); EOS % 4.6 % (1.0-4.0); HEMATOCRIT 43.6 % (42.0-52.0); HEMOGLOBIN 14.7 g/dl (14.0-18.0); LYMPH # 2.3 10*3/uL (1.3-4.4); LYMPH % 35.8 % (27.0-41.0); MEAN CELL VOLUME 88.1 fl (80.0-94.0); MEAN CORPUSCULAR HGB 29.7 pg (27.0-31.0); MEAN CORPUSCULAR HGB CONC 33.7 g/dl (33.0-37.0); MEAN PLATELET VOLUME 9.4 fl (9.6-12.3); MONO # 0.7 10*3/uL (0.1-1.0); MONO % 10.3 % (3.0-9.0); NEUT # 3.1 10*3/uL (2.3-7.9); NEUT % 48.5 % (47.0-73.0); PLATELET COUNT AUTOMATED 206 10*3/uL (130-400); RED BLOOD COUNT 4.95 10*6/uL (4.50-5.90); RED CELL DISTRI WIDTH 13.2 % (0-14.5); WHITE BLOOD COUNT 6.3 10*3/uL (4.8-10.8)
[2019-04-22 06:49] LABS: BUN 16 mg/dl (7-24); CHLORIDE 112 mmol/L (98-107); CREATININE 1.17 mg/dL (0.70-1.30); PHOSPHOROUS 3.4 mg/dL (2.5-4.9); POTASSIUM 4.5 mmol/L (3.5-5.1); SODIUM 139 mmol/L (136-145)
--- NOTE | 2019-04-22 08:02 | NUR ---
PHYSICAL THERAPY Screen received as well as PT orders will follow, thank you Violeta Skelton PT
--- NOTE | 2019-04-22 08:03 | NUR ---
Nursing screen and Occupational Therapy referral received. Thank you. Jerica Black OTR/L
--- NOTE | 2019-04-22 08:08 | NUR ---
PT RESTING IN BED WITH EYES CLOSED, AWAKENS EASILY. C/O LOWER BACK PAIN, RATES PAIN 9 ON PAIN SCALE 0-10. MEDICATED WITH NORCO PO PER PRN ORDER, SEE EMAR. TOLERATED ROUTINE MED WITH NO PROBLEM. CALL LIGHT IN REACH. SEE SHIFT ASSESSMENT.
--- NOTE | 2019-04-22 10:37 | NUR ---
SPEECH PATHOLOGY Nursing screen complete. Reports indicate facial droop/numbness and slurred speech. Evaluation is recommended. SHADI DENIS MSCCC-GROOVER OPERATOR
--- NOTE | 2019-04-22 11:20 | NUR ---
Occupational Therapy evaluation completed on 4 with full eval to follow. Precautions include fall risk; bed alarm,IV UE, moderate complexity level 23438 via chart review, testing and evaluation. Recommend OT per pOC for safety in functional transfers, LUE strengthening,edema management of LUE,ADL training and safety in mobility and SNF upon d/c to enable return home w/ who works and patient is alone. Thank you Jerica Black OTr/l
--- NOTE | 2019-04-22 11:27 | NUR ---
OT stated patient would like to go to [facility]. network planner notified and following.
--- NOTE | 2019-04-22 11:40 | NUR ---
PHYSICAL THERAPY Jayde completed moderate level of complexity 56918 recomend SNF at discharge PT to work on transfers, Amb, strengthening and balance. Violeta Skelton PT
[2019-04-22 12:00] VITALS: BP 108/62
--- NOTE | 2019-04-22 13:09 | NUR ---
[facility]
--- NOTE | 2019-04-22 15:22 | NUR ---
PT C/O LOWER BACK PAIN, RATES PAIN 5 ON PAIN SCALE 0-10. MEDICATED WITH NORCO PO PER PRN ORDER, SEE EMAR. VISITOR AT HIS SIDE. CALL LIGHT IN REACH.
[2019-04-22 16:00] VITALS: BP 115/76
--- NOTE | 2019-04-22 16:15 | NUR ---
PT RESTING IN BED. RESP-EASY AND REGULAR. MEDICATION HELPS SOME. CALL LIGHT IN REACH. SEE SHIFT ASSESSMENT.
--- NOTE | 2019-04-22 18:00 | NUR ---
SLEEPING IN BED. RESP-EASY AND REGULAR. CALL LIGHT IN REACH.
[2019-04-22 20:00] VITALS: BP 116/74
[2019-04-23] VITALS: BP 113/56
--- NOTE | 2019-04-23 05:50 | NUR ---
24 HR. CHART CHECK COMPLETE.
[2019-04-23 07:30] VITALS: BP 128/88
--- NOTE | 2019-04-23 07:30 | NUR ---
ASSESSMENT COMPLETED AND DOCUMENTED. PT RESTING IN BED UPON WALKING IN THE ROOM. PT IS PLESANT AND COOPERATIVE DURING ASSESSMENT. ASSISTED PT TO THE BATHROOM WITH NO COMPLAINTS OF PAIN OR TROUBLE AMBULATING. PT BACK IN BED ORDERING BREAKFAST, CALL LIGHT WITH IN REACH. TESS BROWNING SPCC
--- NOTE | 2019-04-23 08:40 | NUR ---
OT NOTE Pt was seen this A.M. 1:1 for 20 minute OT session. Upon arrival pt was supine in bed. Pt identified by name and and had complaints of 7/10 LLE pain. Pt transferred supine to sit EOB with Judy. Sit to stand completed from bed level with CGA and use of w/w. Functional mobility was then completed into the bathroom with CGA and use of w/w. There he transferred on/off standard commode with CGA and use of w/w for UE support. He then stood sink side while washing his hands with CGA. Functional mobility completed back to the EoB where he sat for seated rest break. While sitting EOB pt educated on edema control for L hand, pt verbalized understanding and completed 1 X 10 of pumping exercises. Pt transferred back into bed sit to supine with Judy. There he was left with call light in hand, tray table in place, and bed alarm activated for safety. Continue with rec D/C plan to SNF. LESLEY Brannon
--- NOTE | 2019-04-23 09:30 | NUR ---
PT REQUESTED TO HAVE A BATH AND SHAVE. PT IS UP TO CHAIR TO BE WASHED UP. PLESANT AND COOPERATIVE AND TOLERATED WELL. BEFORE LEAVING ROOM PT REQUESTED TO BE BACK IN BED. ASSISTED TO BED AND LEFT CALL LIGHT WITH IN REACH. PT DENIES COMPLAINTS OF SOB, DIZZINESS, AND PAIN AT THIS TIME. WILL CONTINUE TO MONITOR. TESS BROWNING SPCC
--- NOTE | 2019-04-23 09:57 | NUR ---
PHYSICAL THERAPY Patient presented to therapy in supine with head of bed elevated and bed alarm activated. Patient gives informed consent for treatment. Patient was identified by name and on wristband. Patient performed supine to sitting at EOB transfer with SBA. Patient sit to stand transfer from EOB with MIN A X 1. Patient ambulated 60' x 1 with Wh Walker with Close Supervision and minor LOB with a turn ,which her corrected himself. Patient transferred on and off of a low chair with Min A x 1. Patient transferred back to supine in bed with SBA. Patient was left in supine in bed with head of bed elevated, call light within reach and bed alarm activated. Patient was 1:1 with this ICU CLERK FOR 20 MINUTES TOTAL. MOISES LINN ICU CLERK
--- NOTE | 2019-04-23 11:00 | NUR ---
Patient has been accepted to [facility], hospital exemption complete. Patient requires a 3 night stay. Ok to go tomorrow, 04/24/19 if medically stable for discharge.
--- NOTE | 2019-04-23 11:07 | NUR ---
Spoke to Omaira at the [facility]. Discussed transfer to [facility] and patient would like to stay here under his Medicare. Discussed short term rehab and he remains agreeable. Asked when he was going to be discharged. Explained with Medicare he needs a 3 night hospital stay and his third night will be tonight so as long as he is medically stable he will be discharged to [facility] tomorrow. technical planner following. [facility] and registration notified of patient's wishes to remain in [facility] under his Medicare.
[2019-04-23 11:30] VITALS: BP 130/82
--- NOTE | 2019-04-23 11:30 | NUR ---
ASSESSMENT COMPLETED AND DOCUMENTED. PT ASKED FOR ASSIST TO THE RESTROOM. TOLERATED AMBULATING WELL WITH MINIMAL ASSIST. PT IS BACK IN BED ORDERING LUNCH. CALL LIGHT WITH IN REACH. TESS BROWNING SPLOUCC
--- NOTE | 2019-04-23 12:30 | NUR ---
PT CONTINUES TO C/O LOWER BACK PAIN THAT RADIATES TO HIS RIGHT KNEE CAP. PT DENIES NEED FOR NORCO AT THIS TIME. REPOSTIONED IN BED FOR COMFORT. TESS BROWNING SPCC
--- NOTE | 2019-04-23 13:31 | NUR ---
PT QUIETLY RESTING IN BED. REPORT GIVEN TO CYNDEE MAGUIRE. TESS BROWNING SPNRCC
--- NOTE | 2019-04-23 13:32 | NUR ---
PAIN MED EFFECTIVE PER PT. WILL CONTINUE TO MONITOR.
--- NOTE | 2019-04-23 15:52 | NUR ---
DILAUDID GIVEN PER PRN ORDER FOR C/O BACK PAIN. RATES PAIN 8/10. CHRONIC BACK PAIN PER PT. WILL MONITOR EFFECTIVENESS.
[2019-04-23 16:00] VITALS: BP 137/92
--- NOTE | 2019-04-23 19:43 | NUR ---
24 HR. CHART CHECK COMPLETE.
[2019-04-23 20:00] VITALS: BP 144/94
--- NOTE | 2019-04-23 21:00 | NUR ---
PRN DILAUDID EFFECTIVE PER PATIENT.
[2019-04-24] VITALS: BP 150/98
--- NOTE | 2019-04-24 00:03 | NUR ---
PRN DILAUDID GIVEN FOR CHRONIC BACK PAIN RATING A 7/10. CALL LIGHT IS WITHIN REACH, WILL MONITOR.
--- NOTE | 2019-04-24 01:00 | NUR ---
PRN DILAUDID EFFECTIVE. CALL LIGHT IS WITHIN REACH.
--- NOTE | 2019-04-24 07:25 | NUR ---
Patient accepted to [facility], 3 night stay complete. Patient ok to go if medically stable for discharge.
--- NOTE | 2019-04-24 07:28 | NUR ---
PRN DILAUDID GIVEN FOR CHRONIC BACK PAIN RATING A 7/10. CALL LIGHT IS WITHIN REACH, WILL MONITOR.
[2019-04-24 07:31] VITALS: BP 129/67
--- NOTE | 2019-04-24 07:37 | NUR ---
PT MEDICATED WITH IV DILAUDID SLOWLY PER PRN ORDER FOR C/O BACK PAIN. RATES PAIN 11/20. CHRONIC PAIN PER PT. WILL MONITOR EFFECTIVENESS. CALL LIGHT WITHIN REACH. VSS.
--- NOTE | 2019-04-24 08:10 | NUR ---
PT UP AMBULATING IN HALLWAY VIA WALKER WITH PHYSICAL THERAPY PER ORDER.
--- NOTE | 2019-04-24 08:10 | NUR ---
OT NOTE Pt was seen this A.M. 1:1 for 20 minute OT session. Upon arrival pt was supine in bed. Pt identified by name and and had no complaints at this time. Pt transferred supine to sit EOB with SBA. While sitting EOB pt donned B socks with compensatory technique of raising his leg over his other knee which pt was able to complete with SBA. Sit to stand completed from bed level with CGA and use of w/w for UE support. Functional mobility completed to the bathroom with CGA and use of w/w. There he transferred on/off standard commode with Judy and use of grab bar for UE support. He then stood sink side while washing his hands with CGA for safety. Functional mobility was then completed to the EOB where he transferred sit to supine with Judy for assist with LLE. Pt was educated on "hooking" his LLE with his RLE for assist. Pt had good carry on second trial and was able to complete with SBA. There he was left with call light in hand, tray table in place, and bed alarm activated for safety. Continue with rec D/C plan to SNF. JAK Brannon/Yani
--- NOTE | 2019-04-24 08:15 | NUR ---
EARLIER PAIN MEDICATION EFFECTIVE AT THIS TIME.
--- NOTE | 2019-04-24 08:34 | NUR ---
PHYSICAL THERAPY Patient presented to therapy in supine in bed with head of bed elevated and report of bno pain because he was just given a percocet for pain awhile ago. Patient gives informed consent for treatment. Patient was identified by name and on wristband. Patient performed supine to sitting at EOB with SBA. Patient performed sit to stand transfer from EOB with MIN A X 1. Patient performed ambulation with Wh Walker and CGA X 1 for 60' x 2 with one standing restbreak at the end of the 60'. Patient demonstrated some moderate unsteadiness at times with gait. Patient performed 30 second sit to stand test with 9 sit to stands being completed in 30 seconds total from the EOB in lowest position. Patient transferred back to supine in bed with SBA. Patient was left in supine in bed with head fo bed elevated and call light within reach. Patient BED ALARM ON. Patient was 1;1 with this CHESTNUT TANNER for 17 minutes total. MOISES LINN CHESTNUT TANNER
[2019-04-24] MEDS ORDERED: NEURONTIN100 MG PO (09:01)
[2019-04-24 12:00] VITALS: BP 132/59
--- NOTE | 2019-04-24 13:45 | NUR ---
PHYSICAL THERAPY Patient presented to therapy in supine with report of no pain or other concerns. Patient gives informed consent for treatment. Patient was identified by name and on wristband. Patient performed supine to sitting at EOB with SBA. Patient sit to stand transfer with MIN A X 1. Patient performed ambulation with Wh Walker and Close Supervision for 60' x 2 and 40' x 1 with 1 rest break at the end of each distance with CGA X 1 to Close Supervision and no LOB. Patient transferred back to supine in bed with SBA. Patient was left in supine in bed with call light within reach and and head of bed elevated. Patient was 1:1 with this SUBSTANCE ABUSE RN for 15 minutes total. MOISES LINN SUBSTANCE ABUSE RN
--- NOTE | 2019-04-24 14:49 | NUR ---
Patient is discharged to [facility]. transportation scheduled for 3:15 PM with the [employer]. department clerk/nursing and NH all notified.
[2019-04-24 16:00] VITALS: BP 135/61
--- NOTE | 2019-04-24 16:10 | NUR ---
Discharge instructions reviewed with patient/family. Patient receptive and verbalizes understanding. Follow-up care arranged. Written instructions given to patient/family. CYNDEE MERCHANT.
--- NOTE | 2019-04-24 16:32 | NUR ---
REPORT GIVEN TO NURSE AT [facility].
--- NOTE | 2019-04-25 14:46 | NUR ---
PHYSICAL THERAPY CO-SIGN I approve of the Physical Therapy notes written above. Violeta Skelton PT
== END 2019-04-24 16:32 | disposition other institution (70) | DRG 880 ==
LOC: ED 11:19 → EDHOLD 14:30 → 4E 14:30
PROVIDERS: Emergency Medicine; Internal Medicine; ADMIT Internal Medicine
DX: F44.4 Conversion disorder with motor symptom or deficit (principal); I16.1 Hypertensive emergency; E44.1 Mild protein-calorie malnutrition; F33.9 Major depressive disorder, recurrent, unspecified; Z68.41 Body mass index [BMI] 40.0-44.9, adult; M48.02 Spinal stenosis, cervical region; M10.9 Gout, unspecified; E87.8 Other disorders of electrolyte and fluid balance, not elsewhere classified; M54.40 Lumbago with sciatica, unspecified side; F43.10 Post-traumatic stress disorder, unspecified; G20 Parkinson's disease; G40.909 Epilepsy, unspecified, not intractable, without status epilepticus; M54.10 Radiculopathy, site unspecified; I10 Essential (primary) hypertension; K21.9 Gastro-esophageal reflux disease without esophagitis; E78.5 Hyperlipidemia, unspecified; M51.37 Other intervertebral disc degeneration, lumbosacral region; G89.29 Other chronic pain; Z83.3 Family history of diabetes mellitus; Z82.49 Family history of ischemic heart disease and other diseases of the circulatory system; Z86.73 Personal history of transient ischemic attack (TIA), and cerebral infarction without residual deficits; Z80.8 Family history of malignant neoplasm of other organs or systems; Z88.8 Allergy status to other drugs, medicaments and biological substances; Z88.6 Allergy status to analgesic agent; Z91.041 Radiographic dye allergy status; Z79.899 Other long term (current) drug therapy; Z79.02 Long term (current) use of antithrombotics/antiplatelets

== ENCOUNTER 2019-05-10 21:18 | Emergency (ER) | payer OTHER, MEDICARE ==
[~2019-05-10] VITALS: Ht 182.8 cm; Wt 117.9 kg
[~2019-05-10 21:18] MED LIST changes: +NEURONTIN100 MG PO
[2019-05-10 21:24] VITALS: BP 188/104
[2019-05-10 22:01] LABS: BASO % 0.4 % (0.0-1.0); EOS # 0.5 10*3/uL (0.0-0.4); EOS % 4.5 % (1.0-4.0); HEMATOCRIT 43.7 % (42.0-52.0); HEMOGLOBIN 14.8 g/dl (14.0-18.0); LYMPH # 1.6 10*3/uL (1.3-4.4); LYMPH % 14.2 % (27.0-41.0); MEAN CELL VOLUME 88.6 fl (80.0-94.0); MEAN CORPUSCULAR HGB CONC 33.9 g/dl (33.0-37.0); MEAN PLATELET VOLUME 9.4 fl (9.6-12.3); MONO # 1.4 10*3/uL (0.1-1.0); MONO % 12.9 % (3.0-9.0); NEUT # 7.3 10*3/uL (2.3-7.9); NEUT % 67.1 % (47.0-73.0); PLATELET COUNT AUTOMATED 192 10*3/uL (130-400); RED BLOOD COUNT 4.93 10*6/uL (4.50-5.90); RED CELL DISTRI WIDTH 13.1 % (0-14.5); WHITE BLOOD COUNT 10.9 10*3/uL (4.8-10.8)
[2019-05-10 22:12] LABS: ACT PARTIAL THROMBO TIME 27.1 SECONDS (20.0-32.1); INTERNATIONAL NORM RATIO 0.9 (2.0-3.5)
[2019-05-10 22:16] LABS: ALBUMIN 3.4 gm/dl (3.1-4.5); ALKALINE PHOSPHATASE 63 U/L (45-117); BUN 12 mg/dl (7-24); CHLORIDE 109 mmol/L (98-107); CREATININE 1.08 mg/dL (0.70-1.30); SGOT/AST 20 IU/L (3-35); SGPT/ALT 32 U/L (12-78); SODIUM 139 mmol/L (136-145); TOTAL PROTEIN 7.1 gm/dL (6.4-8.2); URIC ACID 7.5 mg/dL (3.5-7.2)
[2019-05-10 23:30] LABS: BILIRUBIN NEGATIVE (NEGATIVE); BLOOD TRACE-INTACT (NEGATIVE); CLARITY CLEAR (CLEAR); COLOR YELLOW (YELLOW); GLUCOSE NEGATIVE (NEGATIVE); KETONE NEGATIVE (NEGATIVE); LEUKO ESTERASE NEGATIVE (NEGATIVE); NITRITE NEGATIVE (NEGATIVE); SPECIFIC GRAVITY 1.025 (1.005-1.030); UROBILINOGEN 0.2 E.U./dl (0.2-1.0)
[2019-05-10 23:42] LABS: EPITHELIAL CELLS 0-2
[2019-05-10 23:43] LABS: BACTERIA TRACE
[2019-05-10] MEDS ORDERED: KEFLEX500 M1 PO (23:56)
[2019-05-10] MEDS ORDERED: PREDNISONE20 M1 PO (23:56)
[2019-05-10] MEDS ORDERED: NORCO 5-325 TA1 EACH PO (23:59)
== END 2019-05-11 00:15 | disposition home or self-care (01) ==
LOC: ED 21:18
PROVIDERS: Emergency Medicine
DX: M10.9 Gout, unspecified (principal); M79.672 Pain in left foot; M79.89 Other specified soft tissue disorders; I10 Essential (primary) hypertension; K21.9 Gastro-esophageal reflux disease without esophagitis; E78.5 Hyperlipidemia, unspecified; G40.909 Epilepsy, unspecified, not intractable, without status epilepticus; Z88.6 Allergy status to analgesic agent; Z91.041 Radiographic dye allergy status; Z88.8 Allergy status to other drugs, medicaments and biological substances; Z79.899 Other long term (current) drug therapy; Z86.73 Personal history of transient ischemic attack (TIA), and cerebral infarction without residual deficits; Z72.0 Tobacco use

== ENCOUNTER 2019-07-03 11:18 | Inpatient (IN) | payer OTHER ==
[~2019-07-03] VITALS: Ht 165.1 cm; Wt 133.5 kg
[2019-07-03 11:18] VITALS: BP 173/106
[~2019-07-03 11:18] MED LIST changes: +KEFLEX500 M1 PO; +PREDNISONE20 M1 PO
[2019-07-03 11:39] LABS: BASO % 0.6 % (0.0-1.0); EOS # 0.2 10*3/uL (0.0-0.4); EOS % 3.1 % (1.0-4.0); HEMATOCRIT 45.9 % (42.0-52.0); LYMPH # 1.8 10*3/uL (1.3-4.4); LYMPH % 28.6 % (27.0-41.0); MEAN CELL VOLUME 86.6 fl (80.0-94.0); MEAN CORPUSCULAR HGB 30.2 pg (27.0-31.0); MEAN CORPUSCULAR HGB CONC 34.9 g/dl (33.0-37.0); MONO # 0.5 10*3/uL (0.1-1.0); MONO % 8.7 % (3.0-9.0); NEUT # 3.6 10*3/uL (2.3-7.9); NEUT % 58.7 % (47.0-73.0); PLATELET COUNT AUTOMATED 276 10*3/uL (130-400); RED CELL DISTRI WIDTH 13.5 % (0-14.5); WHITE BLOOD COUNT 6.2 10*3/uL (4.8-10.8)
[2019-07-03 12:13] LABS: ALBUMIN 3.9 gm/dl (3.1-4.5); ALKALINE PHOSPHATASE 74 U/L (45-117); BUN 12 mg/dl (7-24); CHLORIDE 108 mmol/L (98-107); CREATININE 1.12 mg/dL (0.70-1.30); POTASSIUM 4.1 mmol/L (3.5-5.1); SGOT/AST 17 IU/L (3-35); SGPT/ALT 31 U/L (12-78); SODIUM 138 mmol/L (136-145); TOTAL PROTEIN 8.1 gm/dL (6.4-8.2)
[2019-07-03 12:15] LABS: ACT PARTIAL THROMBO TIME 27.1 SECONDS (20.0-32.1); INTERNATIONAL NORM RATIO 0.9 (2.0-3.5)
[2019-07-03 12:16] VITALS: BP 141/87
[2019-07-03 12:21] LABS: TROPONIN I < 0.015 ng/ml (<0.045)
[2019-07-03 12:43] VITALS: BP 138/95
[2019-07-03 13:45] VITALS: BP 109/88; BP 144/98
[2019-07-03 16:00] VITALS: BP 140/80
[2019-07-03] MEDS ORDERED: NORVASC10 MG PO (17:08)
[2019-07-03] MEDS ORDERED: VITAMIN D33000 UNIT PO (17:12)
[2019-07-03] MEDS ORDERED: GABAPENTIN400 MG PO (17:13)
[2019-07-03] MEDS ORDERED: MIRTAZAPINE45 M1 PO (17:15)
[2019-07-03 20:00] VITALS: BP 122/68
[2019-07-04] VITALS: BP 124/77
[2019-07-04 06:34] LABS: BASO % 0.4 % (0.0-1.0); EOS # 0.3 10*3/uL (0.0-0.4); EOS % 4.5 % (1.0-4.0); HEMATOCRIT 44.6 % (42.0-52.0); LYMPH # 2.2 10*3/uL (1.3-4.4); LYMPH % 31.8 % (27.0-41.0); MEAN CELL VOLUME 87.8 fl (80.0-94.0); MEAN CORPUSCULAR HGB 29.5 pg (27.0-31.0); MEAN CORPUSCULAR HGB CONC 33.6 g/dl (33.0-37.0); MEAN PLATELET VOLUME 9.2 fl (9.6-12.3); MONO # 0.8 10*3/uL (0.1-1.0); MONO % 11.8 % (3.0-9.0); NEUT # 3.6 10*3/uL (2.3-7.9); NEUT % 51.1 % (47.0-73.0); PLATELET COUNT AUTOMATED 245 10*3/uL (130-400); RED BLOOD COUNT 5.08 10*6/uL (4.50-5.90); RED CELL DISTRI WIDTH 13.5 % (0-14.5)
[2019-07-04 07:16] LABS: ALBUMIN 3.5 gm/dl (3.1-4.5); ALKALINE PHOSPHATASE 69 U/L (45-117); BUN 15 mg/dl (7-24); CHLORIDE 107 mmol/L (98-107); CHOLESTEROL 172 mg/dL (<200); CREATININE 1.27 mg/dL (0.70-1.30); FREE T4 0.71 ng/dl (0.76-1.46); HDL CHOLESTEROL 36 mg/dl (40-60); LDL CHOLESTEROL 91 mg/dL (9-159); PHOSPHOROUS 4.2 mg/dL (2.5-4.9); POTASSIUM 3.9 mmol/L (3.5-5.1); SGOT/AST 13 IU/L (3-35); SGPT/ALT 11 U/L (12-78); SODIUM 139 mmol/L (136-145); TOTAL PROTEIN 7.3 gm/dL (6.4-8.2); TRIGLYCERIDES 224 mg/dl (<150); VLDL CHOLESTEROL 45 mg/dL (6-40)
[2019-07-04 08:00] VITALS: BP 112/60
[2019-07-04 08:17] LABS: VITAMIN D, 25-HYDROXY 27.8 ng/mL (30-100)
[2019-07-04 16:00] VITALS: BP 123/84
[2019-07-04 20:00] VITALS: BP 130/76
[2019-07-04 23:30] VITALS: BP 80/52
[2019-07-05] VITALS (7 sets, daily range): BP systolic 82–122; BP diastolic 48–64
[2019-07-05 00:24] LABS: BASO % 0.4 % (0.0-1.0); EOS # 0.3 10*3/uL (0.0-0.4); EOS % 3.5 % (1.0-4.0); HEMATOCRIT 43.4 % (42.0-52.0); HEMOGLOBIN 14.7 g/dl (14.0-18.0); LYMPH # 2.1 10*3/uL (1.3-4.4); LYMPH % 25.8 % (27.0-41.0); MEAN CELL VOLUME 88.6 fl (80.0-94.0); MEAN CORPUSCULAR HGB CONC 33.9 g/dl (33.0-37.0); MEAN PLATELET VOLUME 9.1 fl (9.6-12.3); MONO # 0.8 10*3/uL (0.1-1.0); MONO % 10.2 % (3.0-9.0); NEUT # 4.8 10*3/uL (2.3-7.9); NEUT % 59.7 % (47.0-73.0); PLATELET COUNT AUTOMATED 268 10*3/uL (130-400); RED CELL DISTRI WIDTH 13.5 % (0-14.5); WHITE BLOOD COUNT 8.1 10*3/uL (4.8-10.8)
[2019-07-05 00:43] LABS: BUN 23 mg/dl (7-24); CHLORIDE 108 mmol/L (98-107); CREATININE 2.05 mg/dL (0.70-1.30); POTASSIUM 4.2 mmol/L (3.5-5.1); SODIUM 140 mmol/L (136-145)
[2019-07-05 00:49] LABS: TROPONIN I < 0.015 ng/ml (<0.045)
[2019-07-06] VITALS: BP 103/57
[2019-07-06 06:21] LABS: CREATININE 1.58 mg/dL (0.70-1.30); POTASSIUM 4.4 mmol/L (3.5-5.1)
[2019-07-06 08:00] VITALS: BP 122/68
[2019-07-06] MEDS ORDERED: COREG12.5 M1 PO (08:37)
[2019-07-06] MEDS ORDERED: IMDUR SA30 MG PO (08:37)
[2019-07-06] MEDS ORDERED: ZESTRIL20 MG PO (08:37)
== END 2019-07-06 09:35 | disposition home or self-care (01) | DRG 205 ==
LOC: ED 11:18 → EDHOLD 13:07 → 4E 13:07 → EDHOLD 13:56 → 4E 15:03
PROVIDERS: Emergency Medicine; Internal Medicine; ADMIT Internal Medicine
PROC: 3E073KZ Introduction of Other Diagnostic Substance into Coronary Artery, Percutaneous Approach (ICD-10-PCS; principal; 2019-07-04)
PROC: 4A02XM4 Measurement of Cardiac Total Activity, External Approach (ICD-10-PCS; principal; 2019-07-04)
DX: M94.0 Chondrocostal junction syndrome [Tietze] (principal); N17.0 Acute kidney failure with tubular necrosis; F33.9 Major depressive disorder, recurrent, unspecified; I69.354 Hemiplegia and hemiparesis following cerebral infarction affecting left non-dominant side; I16.0 Hypertensive urgency; I10 Essential (primary) hypertension; E87.8 Other disorders of electrolyte and fluid balance, not elsewhere classified; E83.41 Hypermagnesemia; F43.10 Post-traumatic stress disorder, unspecified; G20 Parkinson's disease; G40.909 Epilepsy, unspecified, not intractable, without status epilepticus; K21.9 Gastro-esophageal reflux disease without esophagitis; E78.5 Hyperlipidemia, unspecified; M48.02 Spinal stenosis, cervical region; M10.9 Gout, unspecified; E66.9 Obesity, unspecified; I25.9 Chronic ischemic heart disease, unspecified; M54.5 Low back pain; G89.29 Other chronic pain; M51.37 Other intervertebral disc degeneration, lumbosacral region; I95.9 Hypotension, unspecified; R73.9 Hyperglycemia, unspecified; Z88.8 Allergy status to other drugs, medicaments and biological substances; Z88.6 Allergy status to analgesic agent; Z91.041 Radiographic dye allergy status; Z82.49 Family history of ischemic heart disease and other diseases of the circulatory system; Z83.3 Family history of diabetes mellitus; Z80.8 Family history of malignant neoplasm of other organs or systems; Z79.899 Other long term (current) drug therapy; Z79.02 Long term (current) use of antithrombotics/antiplatelets

== ENCOUNTER 2019-08-06 11:09 | Emergency (ER) | payer OTHER, MEDICARE ==
[~2019-08-06] VITALS: Ht 175.2 cm; Wt 135.2 kg
[~2019-08-06 11:09] MED LIST changes: +COREG12.5 M1 PO; +GABAPENTIN400 MG PO; +IMDUR SA30 MG PO; +MIRTAZAPINE45 M1 PO; +NORVASC10 MG PO; +VITAMIN D33000 UNIT PO
[2019-08-06 14:33] LABS: BASO % 0.4 % (0.0-1.0); EOS # 0.1 10*3/uL (0.0-0.4); HEMOGLOBIN 16.1 g/dl (14.0-18.0); LYMPH # 1.4 10*3/uL (1.3-4.4); LYMPH % 19.8 % (27.0-41.0); MEAN CELL VOLUME 89.7 fl (80.0-94.0); MEAN CORPUSCULAR HGB 30.1 pg (27.0-31.0); MEAN CORPUSCULAR HGB CONC 33.5 g/dl (33.0-37.0); MEAN PLATELET VOLUME 8.9 fl (9.6-12.3); MONO # 0.6 10*3/uL (0.1-1.0); MONO % 8.6 % (3.0-9.0); NEUT # 4.8 10*3/uL (2.3-7.9); NEUT % 68.9 % (47.0-73.0); PLATELET COUNT AUTOMATED 232 10*3/uL (130-400); RED BLOOD COUNT 5.35 10*6/uL (4.50-5.90); RED CELL DISTRI WIDTH 13.2 % (0-14.5)
[2019-08-06 14:44] LABS: ALBUMIN 3.7 gm/dl (3.1-4.5); ALKALINE PHOSPHATASE 72 U/L (45-117); BUN 16 mg/dl (7-24); CHLORIDE 109 mmol/L (98-107); POTASSIUM 4.6 mmol/L (3.5-5.1); SGOT/AST 20 IU/L (3-35); SGPT/ALT 15 U/L (12-78); SODIUM 140 mmol/L (136-145); TOTAL PROTEIN 7.7 gm/dL (6.4-8.2)
[2019-08-06 14:48] LABS: TROPONIN I < 0.015 ng/ml (<0.045)
[2019-08-06 15:34] VITALS: BP 103/51
[2019-08-06] MEDS ORDERED: NORCO 10-325 T1 EACH PO (16:16)
== END 2019-08-06 16:22 | disposition home or self-care (01) ==
LOC: ED 11:09
PROVIDERS: Emergency Medicine
DX: G89.29 Other chronic pain (principal); M54.9 Dorsalgia, unspecified; R07.9 Chest pain, unspecified; R06.02 Shortness of breath; R42 Dizziness and giddiness; K21.9 Gastro-esophageal reflux disease without esophagitis; I10 Essential (primary) hypertension; M10.9 Gout, unspecified; E78.5 Hyperlipidemia, unspecified; G40.909 Epilepsy, unspecified, not intractable, without status epilepticus; Z88.6 Allergy status to analgesic agent; Z88.8 Allergy status to other drugs, medicaments and biological substances; Z91.041 Radiographic dye allergy status; Z79.899 Other long term (current) drug therapy; Z72.0 Tobacco use

== ENCOUNTER 2019-10-02 11:00 | Emergency (ER) | payer MEDICARE ==
[~2019-10-02] VITALS: Ht 175.2 cm; Wt 122.9 kg
[~2019-10-02 11:00] MED LIST changes: +NORCO 10-325 T1 EACH PO
[2019-10-02 11:16] VITALS: BP 163/103
[2019-10-02 11:57] LABS: BASO % 0.3 % (0.0-1.0); EOS # 0.2 10*3/uL (0.0-0.4); EOS % 2.4 % (1.0-4.0); HEMATOCRIT 46.8 % (42.0-52.0); LYMPH # 1.5 10*3/uL (1.3-4.4); LYMPH % 20.8 % (27.0-41.0); MEAN CELL VOLUME 85.7 fl (80.0-94.0); MEAN CORPUSCULAR HGB 29.7 pg (27.0-31.0); MEAN CORPUSCULAR HGB CONC 34.6 g/dl (33.0-37.0); MEAN PLATELET VOLUME 8.9 fl (9.6-12.3); MONO # 0.4 10*3/uL (0.1-1.0); MONO % 6.2 % (3.0-9.0); PLATELET COUNT AUTOMATED 215 10*3/uL (130-400); RED BLOOD COUNT 5.46 10*6/uL (4.50-5.90); RED CELL DISTRI WIDTH 13.3 % (0-14.5); WHITE BLOOD COUNT 7.1 10*3/uL (4.8-10.8)
[2019-10-02 12:08] LABS: ACT PARTIAL THROMBO TIME 29.3 SECONDS (20.0-32.1)
[2019-10-02 12:11] LABS: ALBUMIN 3.9 gm/dl (3.1-4.5); ALKALINE PHOSPHATASE 68 U/L (45-117); BUN 21 mg/dl (7-24); CHLORIDE 108 mmol/L (98-107); CREATININE 1.28 mg/dL (0.70-1.30); POTASSIUM 4.3 mmol/L (3.5-5.1); SGOT/AST 28 IU/L (3-35); SGPT/ALT 30 U/L (12-78); SODIUM 138 mmol/L (136-145)
[2019-10-02] MEDS ORDERED: NORCO 5-325 TA1 EACH PO (13:39)
[2019-10-02] MEDS ORDERED: AUGMENTIN 875875 MG PO (13:39)
== END 2019-10-02 13:50 | disposition home or self-care (01) ==
LOC: ED 11:00
PROVIDERS: Emergency Medicine
DX: S92.422B Displaced fracture of distal phalanx of left great toe, initial encounter for open fracture (principal); R79.1 Abnormal coagulation profile; Z88.6 Allergy status to analgesic agent; Z88.8 Allergy status to other drugs, medicaments and biological substances; Z91.041 Radiographic dye allergy status; Z79.899 Other long term (current) drug therapy; W20.8XXA Other cause of strike by thrown, projected or falling object, initial encounter; Y93.89 Activity, other specified; Y92.89 Other specified places as the place of occurrence of the external cause; Y99.8 Other external cause status

== ENCOUNTER 2019-10-30 10:57 | Inpatient (IN) | payer MEDICARE ==
[~2019-10-30] VITALS: Ht 175.2 cm; Wt 121.6 kg
[~2019-10-30 10:57] MED LIST changes: +AUGMENTIN 875875 MG PO
[2019-10-30 12:00] VITALS: BP 148/88
--- NOTE | 2019-10-30 12:48 | NUR ---
PT STATES HAS HAD SOME RELEIF OF PAIN.
[2019-10-30 13:15] VITALS: BP 144/82
[2019-10-30 14:30] VITALS: BP 148/88
--- NOTE | 2019-10-30 14:58 | NUR ---
MSTime: [id number] A 63 year old MALE admitted to 5E under services of DR. KRISTI REYNOSO,JUDE High Pt. arrived via bed from ER. Chief complaint: FRACTURED DISTAL END OF FIBULA. CYNDEE MERCHANT.
[2019-10-30] MEDS ORDERED: NORVASC10 MG PO (16:12)
[2019-10-30] MEDS ORDERED: DEPAKOTE ER500 MG PO (16:13)
[2019-10-30] MEDS ORDERED: LISINOPRIL40 MG PO (16:14)
[2019-10-30] MEDS ORDERED: LATUDA80 M1 PO (16:15)
--- NOTE | 2019-10-30 16:44 | NUR ---
PT MEDICATED WITH IV DILAUDID SLOWLY PER PRN ORDER FOR C/O RIGHT FOOT PAIN. RATES PAIN 12/21. WILL MONITOR EFFECTIVENESS. AT BEDSIDE. CALL LIGHT WITHIN REACH.
--- NOTE | 2019-10-30 17:26 | NUR ---
podiatry resident aware of consult, no orders at this time
--- NOTE | 2019-10-30 17:30 | NUR ---
PT STATES PAIN MEDICATION EFFECTIVE FOR PAIN. PT SITTING SIDE OF BED, EATING DINNER. STATES NO NEEDS AT THIS TIME
--- NOTE | 2019-10-30 19:42 | NUR ---
CHART CHECK COMPLETE.
[2019-10-30 20:00] VITALS: BP 153/90
--- NOTE | 2019-10-30 20:50 | NUR ---
ASSUMED CARE OF PATIENT. PATIENT IS AAOX3 RESTING IN BED WITH EASY AND REGULAR RESPERS ON ROOM AIR. ASSESSMENT IS COMPLETE WITH NO S/S OF DISTRESS NOTED AT THIS TIME. PATIENT C/O PAIN TO FOOT RATING AN 8/10. BED IS LOW, LOCKED, AND CALL LIGHT IS WITHIN REACH. WILL CONTINUE TO MONITOR, SEE INTERVENTIONS.
--- NOTE | 2019-10-30 20:57 | NUR ---
PRN DILAUDID GIVEN FOR C/O FOOT PAIN RATING AN 8/10. CALL LIGHT IS WITHIN REACH, WILL MONITOR EFFECT OF MEDICATION.
--- NOTE | 2019-10-30 21:22 | NUR ---
PRN DILADID EFFECTIVE PER PATIENT. CALL LIGHT IS WITHIN REACH.
[2019-10-31] VITALS: BP 142/81
--- NOTE | 2019-10-31 01:43 | NUR ---
PATIENT IS SLEEPING WITH EASY AND REGULAR RESPERS ON ROOM AIR. CALL LIGHT IS WITHIN REACH.
--- NOTE | 2019-10-31 05:10 | NUR ---
PATIENT AWAKENS EASILY FOR AM MEDICATIONS. CALL LIGHT IS WITHIN REACH. PATIENT FELL BACK TO SLEEP EASILY.
[2019-10-31 08:00] VITALS: BP 128/82
--- NOTE | 2019-10-31 08:25 | NUR ---
PATIENT MEDICATED WITH IVP DILAUDID FOR PAIN RATED 8/10 IN HIS LEFT FOOT. NO OTHER COMPLAINTS AT THIS TIME.
--- NOTE | 2019-10-31 09:15 | NUR ---
States that dilaudid was effective.
--- NOTE | 2019-10-31 09:15 | NUR ---
PHYSICAL THERAPY Eval order received from , but to refer to Ortho/podiatry regarding weightbearing status for RLE with distal fibular fx. Spoke with nursing podiatry has not see pt yet, will await assessment and clarification from MD. Pt also with a hx of L foot distal phalanx fx of 1st digit 10/02/19 Violeta Skelton PT
--- NOTE | 2019-10-31 09:30 | NUR ---
Fish Agent in to talk to patient. Patient states lives at home with his . There are 14 steps in the home. Physician: Dr. Charmaine Bravo Pharmacy: [place] or [facility] Home health services: has had [facility] in the past but not currently Patient's level of ADLs: MINIMAL ASSIST Patient has working utilities: yes DME: cane, walker Follow-up physician's appointment after d/c: will be made by the hospitalist nurse director upon discharge Does patient want to access PORTAL?: no Discharge plan discussed with patient. He lives at home with his . He is independent in his ADLs and ambulates with either a cane or a walker. Discussed short term rehab and he is agreeable. When provided with a list of facilities he chose [facility] because his is the head of their dietary department. hand bindery assembly worker notified. He states his will provide transportation on discharge. SARABJIT LAUREANO
--- NOTE | 2019-10-31 09:57 | NUR ---
OT NOTE Occupational therapy evaluation and chart reviewed. Patient's order sentby Dr. Phillips, but to refer to ortho/podiatry regarding WB status for the RLE distal fibular fx. Spoke with nursing and podiatry had not seen patient yet. Will follow up with OT epi following clarification from MD. Tiffany Davis, OTR/L
--- NOTE | 2019-10-31 10:53 | NUR ---
PATIENT REQUIRES COVID TESTING AND ACCEPTANCE FOR SNF. UTILITY WORKER [employer] FAXED NEW REFERRAL TO [facility]. WILL NEED PT/OT ASSESSMENTS TO COMPLETE REFERRAL.
--- NOTE | 2019-10-31 11:30 | NUR ---
PHYSICAL THERAPY Physical Therapy evaluation completed on fifth floor with full evaluation to follow. Recommend physical therapy per plan of care and SNF upon discharge. Thank you for this referral. Violeta Skelton PT
--- NOTE | 2019-10-31 11:30 | NUR ---
Occupational Therapy evaluation completed on five with full evaluation to follow. Recommend occupational therapy per plan of care and SNF upon discharge. Thank you for this referral. Tiffany Davis OTR/L
[2019-10-31 12:00] VITALS: BP 136/83
--- NOTE | 2019-10-31 13:02 | NUR ---
Medicated with dilaudid iv per prn order for c/o pain to rt ankle.
--- NOTE | 2019-10-31 13:05 | NUR ---
PENDING ACCEPTANCE TO [facility]. WILL NEED PT/OT ASSESSMENTS. WILL NEED COVID TESTING RESULTS BEFORE ADMISSION TO [facility]. WEIGHT TRAINER COMPLETED HENS.
--- NOTE | 2019-10-31 13:31 | NUR ---
NOVEL CORONAVIRUS SWAB OBTAINED ORDERED AND WALKED TO LAB.
--- NOTE | 2019-10-31 14:00 | NUR ---
States that dilaudid effective.
--- NOTE | 2019-10-31 15:40 | NUR ---
ACCEPTED TO [facility]. COVID RESULTS ARE NEEDED BEFORE ADMISSION TO [facility]. IF THEY ARE BACK HE CAN ADMIT TO [facility] ON 11/02/2019.
[2019-10-31 16:00] VITALS: BP 105/64
--- NOTE | 2019-10-31 17:02 | NUR ---
Pt was medicated at this time with dilauid iv per prn order for complaints of pain to rt leg/ankle.
--- NOTE | 2019-10-31 17:15 | NUR ---
Podiatry up and changed pt splint to rt leg. Pt had states that splint was rubbing the back of his leg. Pt states it is feeling much better since changed.
--- NOTE | 2019-10-31 17:55 | NUR ---
States that dilaudid was effective.
[2019-10-31 20:00] VITALS: BP 96/58
--- NOTE | 2019-10-31 20:00 | NUR ---
ASSUMED CARE OF PATIENT. PATIENT IS AAOX3 RESTING IN BED WITH EASY AND RAGULAR RESPERS ON ROOM AIR. ASSESSMENT IS COMPLETE WITH NO C/O OR S/S OF DISTRESS NOTED A THIS TIME. BED IS LOW, LOCKED, AND CALL LIGHT IS WITHIN REACH. WILL CONTINUE TO MONITOR, SEE INTERVENTIONS.
--- NOTE | 2019-10-31 21:56 | NUR ---
PRN DILAUDID GIVEN FOR C/O FOOT PAIN RATING A 6/10. CALL LIGHT IS WITHIN REACH, WILL MONITOR EFFECT.
--- NOTE | 2019-10-31 22:56 | NUR ---
PRN DILAUDID EFFECTIVE, SLEEPING. CALL LIGHT IS WITHIN REACH.
[2019-11-01] VITALS: BP 99/55
--- NOTE | 2019-11-01 02:29 | NUR ---
CHART CHECK COMPLETE.
--- NOTE | 2019-11-01 03:06 | NUR ---
PATIENT SLEEPING WITH EASY AND REGULAR RESPERS ON ROOM AIR. CALL LIGHT IS WITHIN REACH.
--- NOTE | 2019-11-01 05:38 | NUR ---
AWAKENS EASILY FOR AM MEDICATION. DR. CHENG INTO SEE PATIENT.
[2019-11-01 08:00] VITALS: BP 100/50
--- NOTE | 2019-11-01 08:41 | NUR ---
Medicated with dilaudid iv per prn order for complaints of pain to right ankle. Splint intact. See assessment.
--- NOTE | 2019-11-01 09:30 | NUR ---
Pt states that dilaudid was effective.
[2019-11-01 12:00] VITALS: BP 113/65
--- NOTE | 2019-11-01 13:41 | NUR ---
Medicated with dilaudid per prn order for complaints to rt ankle. States pain is 8/10.
--- NOTE | 2019-11-01 14:30 | NUR ---
States that medication effective.
[2019-11-01 16:00] VITALS: BP 126/78
--- NOTE | 2019-11-01 17:31 | NUR ---
Medicated with dilaudid iv per prn order for complaints of pain to rt ankle. States pain is 5/10.
--- NOTE | 2019-11-01 18:20 | NUR ---
States that pain medication effective.
[2019-11-01 20:00] VITALS: BP 129/72
--- NOTE | 2019-11-01 21:40 | NUR ---
MEDICATED WITH DILAUDID FOR C/O RIGHT FOOT PAIN RATED A 9/10.
--- NOTE | 2019-11-01 22:15 | NUR ---
RESTING IN BED WITH EYES CLOSED; DILAUDID GIVEN EARLIER APPARENTLY EFFECTIVE.
[2019-11-02] VITALS: BP 118/64
--- NOTE | 2019-11-02 01:31 | NUR ---
MEDICATED WITH DILAUDID FOR C/O RIGHT FOOT PAIN.
--- NOTE | 2019-11-02 02:00 | NUR ---
RESTING IN BED WITH EYES CLOSED; DILAUDID APPARENTLY EFFECTIVE.
--- NOTE | 2019-11-02 06:17 | NUR ---
MEDICATED WITH DILAUDID FOR C/O RIGHT FOOT PAIN.
[2019-11-02 08:00] VITALS: BP 168/88
--- NOTE | 2019-11-02 09:45 | NUR ---
MORNING MEDICATIONS GIVEN, PT UNDERSTANDS ALL MEDICATIONS, NO QUESTIONS AT THIS TIME. PT STATES NO NEEDS AT THIS TIME
--- NOTE | 2019-11-02 11:01 | NUR ---
PT COMPLAIN OF PAIN RIGHT LOWER EXTREMITY 8/10, DILAUDID GIVEN. MONITOR FOR EFFECTIVENESS
--- NOTE | 2019-11-02 11:04 | NUR ---
PT STATES RIGHT LOWER EXTREMITY PAIN 8/10, DILAUDID GIVEN ORDERED
--- NOTE | 2019-11-02 11:35 | NUR ---
DILAUDID EFFECTIVE FOR PAIN
[2019-11-02 12:00] VITALS: BP 134/94
--- NOTE | 2019-11-02 15:30 | NUR ---
DILAUDID GIVEN FOR LOWER EXTREMITY PAIN 12/21. WILL MONITOR FOR EFFECTIVENESS
[2019-11-02 16:00] VITALS: BP 136/83
--- NOTE | 2019-11-02 16:10 | NUR ---
DILAUDID EFFECTIVE FOR PAIN. PT STATES NO NEEDS AT THIS TIME
--- NOTE | 2019-11-02 19:40 | NUR ---
PT STATES RIGHT LOWER EXTREMITY PAIN, 11/20. DILAUDID GIVEN.
[2019-11-02 20:00] VITALS: BP 152/96
--- NOTE | 2019-11-02 20:15 | NUR ---
PRN DILAUDID EFFECTIVE PER PT
--- NOTE | 2019-11-02 23:35 | NUR ---
PRN DILAUDID GIVEN FOR PT COMPLAINTS OF PAIN IN THE LEFT ANKLE/LEG RATING IT 8/10. CALL LIGHT WITHIN REACH, WILL MONITOR
[2019-11-03] VITALS: BP 122/68
--- NOTE | 2019-11-03 00:30 | NUR ---
PRN MEDICATION APPEARS EFFECTIVE, PT SLEEPING
--- NOTE | 2019-11-03 02:17 | NUR ---
PATIENT CONTINUES TO SLEEP, NO DISTRESS NOTED. SNORING RESPIRATIONS. CALL LIGHT WITHIN REACH, WILL MONITOR
--- NOTE | 2019-11-03 02:49 | NUR ---
24 HR chart check completed.
--- NOTE | 2019-11-03 05:44 | NUR ---
PRN DILAUDID GIVEN FOR PT COMPLAINTS OF LEG PAIN 01/21. CALL LIGHT WITHIN REACH, WILL MONITOR
--- NOTE | 2019-11-03 06:30 | NUR ---
PRN DILAUDID APPEARS EFFECTIVE, PT SLEEPING
[2019-11-03 08:00] VITALS: BP 140/92
--- NOTE | 2019-11-03 08:35 | NUR ---
PHYSICAL THERAPY Patient seen this am 1;1 for therapy visit and was resting supine in bed upon therapist arrival. Patient identified by name / and reports only mild 1/10 L foot pain. Patient is NWB on R LE and WBAT on L LE with use of surgical shoe. Patient educated on importance of maintaining safe WB status, transfering supine to sit EOB with SBA and then sit to stand CGA with use of wh walker standing support. Patient ambulated 10'x 1 to bathroom, then additional 25'x 1, wh walker, CGA, demonstrating "bunny hop" bienvenido, Fair+ standing balance and returned to bedside chair with mild fatigue. Patient remained in chair with call light, tray table, and cell phone. Will continue per POC as tolerated, total treatment time 16 minutes. Joo Cook, REMNANTS CUTTER
--- NOTE | 2019-11-03 08:47 | NUR ---
EXPANDER MACHINE OPERATOR FAXED UPDATES INCLUDING COVID RESULTS TO [facility].
--- NOTE | 2019-11-03 08:50 | NUR ---
AWNING INSTALLER NOTIFIED DR. BERRY OF THE PATIENT BEING ABLE TO ADMIT TO [facility] IF MEDICALLY STABLE.
--- NOTE | 2019-11-03 08:50 | NUR ---
OT NOTE Pt seen this date for 1:1 therapy session for 20 min and was identified by name and . Upon arrival pt supine in bed w BLE elevated. Pt rated his pain in LLE at a 1/10 on a 0-10 pain scale. Pt was able to verbalize correct weight bearing precautions prior to bed mobility. Pt completed supine to sit at EOB w SBA. S/MUSA donned gait belt and LLE post-op shoe for safety prior to ambulation. Pt completed sit to stand w CGA and ww w good safety awareness and proper hand placement. Pt ambulated into bathroom w CGA demonstrating good safety awareness and one verbal cue for safety when manuvering the ww in a tight space. Pt completed stand to sit to commode w good hand placement and Fair + balance. Upon rise from commode pt presented w mild tremmors and required CGA. Pt ambulated from bathroom to recliner requiring CGA and demonstrated fair + balance. Pt completed stand to sit into recliner requiring one tactile cue to locate arm rest, while transferring into the recliner pt required verbal prompts for kicking his RLE out to maintain NWB and improve technique. Overall pt demonstrated good safety awareness and adhered 100% to NWB precaution w fair + balance. At end of session pt seated in recliner w call light within reach. Continue with recommended D/C to SNF. Linda Holbrook/JAK Paredes/Yani
--- NOTE | 2019-11-03 10:39 | NUR ---
PT COMPLAIN OF PAIN RIGHT LOWER EXT 6/10, DILAUDID GIVEN. WILL MONITOR FOR EFFECTIVENESS
[2019-11-03 12:00] VITALS: BP 122/82
[2019-11-03] MEDS ORDERED: MS CONTIN15 MG PO (14:24)
--- NOTE | 2019-11-03 15:30 | NUR ---
PT STATES PAIN RIGHT LOWER LEG 7/10, DIALUDID GIVEN. WILL MONITOR FOR EFFECTIVENESS
--- NOTE | 2019-11-03 15:38 | NUR ---
SEAFOOD FISHERMAN NOTIFIED OF PATIENT DISCHARGE. SEAFOOD FISHERMAN SPOKE WITH WC, SEAFOOD FISHERMAN ARRANGED FOR A 430 TRANSPORT WITH [place]. SEAFOOD FISHERMAN CONFIRMED WITH ANDREZ ASHRAF. SEAFOOD FISHERMAN ATTTEMPTED TO REACH ON ONE ANSWERED AND NO VOICEMAIL WAS AVAIALBLE. SEAFOOD FISHERMAN INFORMED ANDREZ ZAVALA OF THIS TO INFORM ANDRIY.
--- NOTE | 2019-11-03 16:24 | NUR ---
Discharge instructions reviewed with patient. Patient receptive and verbalizes understanding. Follow-up care understood. Written instructions given to patient. iv removed, dressing applied. pt has no questions on discharge. discharged via [facility] to [facility] ANDRIY CALLAHAN
--- NOTE | 2019-11-03 16:25 | NUR ---
report called to [facility] typists supervisor.
--- NOTE | 2019-11-03 16:33 | NUR ---
discharged via [place]
--- NOTE | 2019-11-04 07:47 | NUR ---
PHYSICAL THERAPY CO-SIGN I approve of the Physical Therapy notes written above. SARABJIT MARINELLI PT,DPT
--- NOTE | 2019-11-04 07:48 | NUR ---
OCCUPATIONAL THERAPY CO-SIGN I approve of the Occupational Therapy notes written above. Jimena Browning OTR/L
== END 2019-11-03 16:33 | disposition other institution (70) | DRG 563 ==
LOC: ED 10:57 → 5E 14:09 → EDHOLD 14:09 → 5E 14:43
PROVIDERS: ADMIT Internal Medicine
PROC: 2W3QX1Z Immobilization of Right Lower Leg using Splint (ICD-10-PCS; principal; 2019-10-30)
DX: S82.831A Other fracture of upper and lower end of right fibula, initial encounter for closed fracture (principal); F33.1 Major depressive disorder, recurrent, moderate; I69.354 Hemiplegia and hemiparesis following cerebral infarction affecting left non-dominant side; F43.10 Post-traumatic stress disorder, unspecified; G20 Parkinson's disease; E78.2 Mixed hyperlipidemia; M47.816 Spondylosis without myelopathy or radiculopathy, lumbar region; I10 Essential (primary) hypertension; G40.409 Other generalized epilepsy and epileptic syndromes, not intractable, without status epilepticus; K21.0 Gastro-esophageal reflux disease with esophagitis; E66.01 Morbid (severe) obesity due to excess calories; R62.7 Adult failure to thrive; M51.37 Other intervertebral disc degeneration, lumbosacral region; M10.9 Gout, unspecified; M48.02 Spinal stenosis, cervical region; G89.29 Other chronic pain; W01.0XXA Fall on same level from slipping, tripping and stumbling without subsequent striking against object, initial encounter; Y93.89 Activity, other specified; Y92.090 Kitchen in other non-institutional residence as the place of occurrence of the external cause; Y99.8 Other external cause status; Z88.8 Allergy status to other drugs, medicaments and biological substances; Z88.6 Allergy status to analgesic agent; Z91.041 Radiographic dye allergy status; Z83.3 Family history of diabetes mellitus; Z80.8 Family history of malignant neoplasm of other organs or systems; Z82.49 Family history of ischemic heart disease and other diseases of the circulatory system; Z79.899 Other long term (current) drug therapy; Z79.02 Long term (current) use of antithrombotics/antiplatelets; Z03.818 Encounter for observation for suspected exposure to other biological agents ruled out; Z68.39 Body mass index [BMI] 39.0-39.9, adult

== ENCOUNTER 2019-11-20 21:31 | Inpatient (IN) | payer OTHER ==
[~2019-11-20] VITALS: Ht 175.2 cm; Wt 136.7 kg
[~2019-11-20 21:31] MED LIST changes: +DEPAKOTE ER500 MG PO; +MS CONTIN15 MG PO
[2019-11-20 21:43] VITALS: BP 159/94
[2019-11-20 21:48] LABS: BASO # 0.1 10*3/uL (0.0-0.1); BASO % 0.6 % (0.0-1.0); EOS # 0.5 10*3/uL (0.0-0.4); EOS % 6.1 % (1.0-4.0); HEMATOCRIT 45.5 % (42.0-52.0); LYMPH # 2.3 10*3/uL (1.3-4.4); MEAN CELL VOLUME 85.5 fl (80.0-94.0); MEAN CORPUSCULAR HGB 29.1 pg (27.0-31.0); MEAN CORPUSCULAR HGB CONC 34.1 g/dl (33.0-37.0); MEAN PLATELET VOLUME 9.2 fl (9.6-12.3); MONO # 1.1 10*3/uL (0.1-1.0); MONO % 13.9 % (3.0-9.0); NEUT # 3.9 10*3/uL (2.3-7.9); NEUT % 48.7 % (47.0-73.0); PLATELET COUNT AUTOMATED 202 10*3/uL (130-400); RED BLOOD COUNT 5.32 10*6/uL (4.50-5.90); RED CELL DISTRI WIDTH 12.6 % (0-14.5); WHITE BLOOD COUNT 8.1 10*3/uL (4.8-10.8)
[2019-11-20 21:59] LABS: ACT PARTIAL THROMBO TIME 25.9 SECONDS (20.0-32.1); INTERNATIONAL NORM RATIO 0.9 (2.0-3.5)
[2019-11-20 22:08] VITALS: BP 133/86
[2019-11-20 22:10] LABS: ALBUMIN 3.4 gm/dl (3.1-4.5); ALKALINE PHOSPHATASE 61 U/L (45-117); BUN 23 mg/dl (7-24); CHLORIDE 108 mmol/L (98-107); CREATININE 1.15 mg/dL (0.70-1.30); SGOT/AST 18 IU/L (3-35); SGPT/ALT 22 U/L (12-78); SODIUM 141 mmol/L (136-145); TOTAL PROTEIN 7.2 gm/dL (6.4-8.2)
[2019-11-20 22:12] LABS: POTASSIUM 4.3 mmol/L (3.5-5.1); TROPONIN I < 0.015 ng/ml (<0.045)
[2019-11-20 23:47] VITALS: BP 132/82
[2019-11-21] VITALS: BP 120/96
[2019-11-21 08:00] VITALS: BP 130/80
== END 2019-11-21 10:04 | disposition other institution (70) | DRG 313 ==
LOC: ED 21:31 → EDHOLD 23:22 → 5E 23:22
PROVIDERS: Emergency Medicine; ADMIT Internal Medicine
DX: R07.89 Other chest pain (principal); G40.909 Epilepsy, unspecified, not intractable, without status epilepticus; G20 Parkinson's disease; F31.9 Bipolar disorder, unspecified; G89.29 Other chronic pain; M54.5 Low back pain; I10 Essential (primary) hypertension; K21.9 Gastro-esophageal reflux disease without esophagitis; Z53.29 Procedure and treatment not carried out because of patient's decision for other reasons; Z88.8 Allergy status to other drugs, medicaments and biological substances; Z88.5 Allergy status to narcotic agent; Z91.041 Radiographic dye allergy status; Z86.73 Personal history of transient ischemic attack (TIA), and cerebral infarction without residual deficits; Z93.3 Colostomy status; Z83.3 Family history of diabetes mellitus; Z82.49 Family history of ischemic heart disease and other diseases of the circulatory system; Z80.9 Family history of malignant neoplasm, unspecified

== ENCOUNTER 2020-02-06 16:53 | Inpatient (IN) | payer MEDICARE ==
[~2020-02-06] VITALS: Ht 175.2 cm; Wt 129.8 kg
[2020-02-06 17:21] VITALS: BP 149/65
[2020-02-06 17:25] LABS: BASO % 0.3 % (0.0-1.0); EOS # 0.3 10*3/uL (0.0-0.4); EOS % 4.1 % (1.0-4.0); HEMATOCRIT 44.2 % (42.0-52.0); LYMPH # 2.2 10*3/uL (1.3-4.4); LYMPH % 29.7 % (27.0-41.0); MEAN CELL VOLUME 86.8 fl (80.0-94.0); MEAN CORPUSCULAR HGB 29.1 pg (27.0-31.0); MEAN CORPUSCULAR HGB CONC 33.5 g/dl (33.0-37.0); MEAN PLATELET VOLUME 8.9 fl (9.6-12.3); MONO # 0.5 10*3/uL (0.1-1.0); MONO % 6.9 % (3.0-9.0); NEUT # 4.3 10*3/uL (2.3-7.9); NEUT % 58.6 % (47.0-73.0); PLATELET COUNT AUTOMATED 271 10*3/uL (130-400); RED BLOOD COUNT 5.09 10*6/uL (4.50-5.90); WHITE BLOOD COUNT 7.4 10*3/uL (4.8-10.8)
[2020-02-06 17:36] LABS: ACT PARTIAL THROMBO TIME 28.2 SECONDS (20.0-32.1)
[2020-02-06 17:42] LABS: ALBUMIN 3.5 gm/dl (3.1-4.5); ALKALINE PHOSPHATASE 67 U/L (45-117); BUN 16 mg/dl (7-24); CHLORIDE 111 mmol/L (98-107); CREATININE 1.25 mg/dL (0.70-1.30); POTASSIUM 3.9 mmol/L (3.5-5.1); SGOT/AST 13 IU/L (3-35); SGPT/ALT 23 U/L (12-78); SODIUM 142 mmol/L (136-145); TOTAL PROTEIN 7.5 gm/dL (6.4-8.2)
[2020-02-06 17:45] LABS: TROPONIN I < 0.015 ng/ml (<0.045)
[2020-02-06 17:52] VITALS: BP 128/80
[2020-02-06 19:02] VITALS: BP 172/115
[2020-02-06 19:35] VITALS: BP 176/112
[2020-02-06 20:00] VITALS: BP 156/94
[2020-02-07] VITALS: BP 145/85
[2020-02-07 06:09] LABS: HEMATOCRIT 45.8 % (42.0-52.0); LYMPH # 0.7 10*3/uL (1.3-4.4); LYMPH % 10.6 % (27.0-41.0); MEAN CELL VOLUME 88.2 fl (80.0-94.0); MEAN CORPUSCULAR HGB 29.1 pg (27.0-31.0); MEAN PLATELET VOLUME 8.9 fl (9.6-12.3); MONO # 0.1 10*3/uL (0.1-1.0); MONO % 0.8 % (3.0-9.0); NEUT # 5.7 10*3/uL (2.3-7.9); NEUT % 88.1 % (47.0-73.0); PLATELET COUNT AUTOMATED 269 10*3/uL (130-400); RED BLOOD COUNT 5.19 10*6/uL (4.50-5.90); RED CELL DISTRI WIDTH 13.2 % (0-14.5); WHITE BLOOD COUNT 6.5 10*3/uL (4.8-10.8)
[2020-02-07 06:14] LABS: ALBUMIN 3.4 gm/dl (3.1-4.5); ALKALINE PHOSPHATASE 69 U/L (45-117); BUN 18 mg/dl (7-24); CHLORIDE 109 mmol/L (98-107); CREATININE 1.25 mg/dL (0.70-1.30); POTASSIUM 4.7 mmol/L (3.5-5.1); SGOT/AST 11 IU/L (3-35); SGPT/ALT 19 U/L (12-78); SODIUM 139 mmol/L (136-145); TOTAL PROTEIN 7.7 gm/dL (6.4-8.2)
[2020-02-07 08:00] VITALS: BP 114/62; BP 116/66
[2020-02-07 12:00] VITALS: BP 129/85
[2020-02-07 13:58] VITALS: BP 150/88
[2020-02-07 16:00] VITALS: BP 136/79
[2020-02-07 20:19] VITALS: BP 102/64
[2020-02-08] VITALS: BP 100/52
[2020-02-08 08:00] VITALS: BP 122/80
[2020-02-08 12:00] VITALS: BP 123/73
[2020-02-08 16:00] VITALS: BP 117/74
[2020-02-08 20:00] VITALS: BP 107/55
[2020-02-09] VITALS: BP 107/54
[2020-02-09 12:00] VITALS: BP 114/57
[2020-02-09 16:00] VITALS: BP 120/80
[2020-02-09 20:00] VITALS: BP 110/50
[2020-02-10] VITALS: BP 105/68
[2020-02-10 08:00] VITALS: BP 148/92
[2020-02-10 10:00] VITALS: BP 155/92
[2020-02-10 12:00] VITALS: BP 116/68
[2020-02-10 16:00] VITALS: BP 117/71
[2020-02-10 20:00] VITALS: BP 115/61
[2020-02-11] VITALS: BP 115/69
== END 2020-02-11 08:00 | disposition short-term general hospital (02) | DRG 552 ==
LOC: ED 16:53 → EDHOLD 18:23 → 5E 18:23
PROVIDERS: Emergency Medicine; ADMIT Internal Medicine; ATTEND Internal Medicine
DX: M47.896 Other spondylosis, lumbar region (principal); Z68.41 Body mass index [BMI] 40.0-44.9, adult; F33.0 Major depressive disorder, recurrent, mild; I69.354 Hemiplegia and hemiparesis following cerebral infarction affecting left non-dominant side; G20 Parkinson's disease; E66.01 Morbid (severe) obesity due to excess calories; R26.2 Difficulty in walking, not elsewhere classified; I25.10 Atherosclerotic heart disease of native coronary artery without angina pectoris; K21.0 Gastro-esophageal reflux disease with esophagitis; M48.02 Spinal stenosis, cervical region; G40.409 Other generalized epilepsy and epileptic syndromes, not intractable, without status epilepticus; R07.9 Chest pain, unspecified; M51.37 Other intervertebral disc degeneration, lumbosacral region; M10.9 Gout, unspecified; F43.10 Post-traumatic stress disorder, unspecified; I10 Essential (primary) hypertension; E78.2 Mixed hyperlipidemia; Z20.828 Contact with and (suspected) exposure to other viral communicable diseases; F17.210 Nicotine dependence, cigarettes, uncomplicated; Z95.5 Presence of coronary angioplasty implant and graft; Z88.6 Allergy status to analgesic agent; Z88.8 Allergy status to other drugs, medicaments and biological substances; Z91.041 Radiographic dye allergy status; Z83.3 Family history of diabetes mellitus; Z82.49 Family history of ischemic heart disease and other diseases of the circulatory system; Z80.8 Family history of malignant neoplasm of other organs or systems

== ENCOUNTER 2020-03-29 11:21 | Emergency (ER) | payer MEDICARE ==
[~2020-03-29] VITALS: Ht 175.2 cm; Wt 129.7 kg
[2020-03-29 11:26] VITALS: BP 170/98
[2020-03-29] MEDS ORDERED: METHOCARBAMOL500 M1 PO (14:04)
[2020-03-29] MEDS ORDERED: MEDROL DOSEPAK4 MG PO (14:04)
== END 2020-03-29 14:10 | disposition home or self-care (01) ==
LOC: ED 11:21
DX: M54.41 Lumbago with sciatica, right side (principal); Z88.6 Allergy status to analgesic agent; Z88.8 Allergy status to other drugs, medicaments and biological substances; Z91.041 Radiographic dye allergy status; Z79.899 Other long term (current) drug therapy; Z87.891 Personal history of nicotine dependence; W18.39XA Other fall on same level, initial encounter; Y93.89 Activity, other specified; Y92.89 Other specified places as the place of occurrence of the external cause; Y99.8 Other external cause status

== ENCOUNTER 2020-10-08 14:42 | Inpatient (IN) | payer MEDICARE ==
[2020-10-08] VITALS (9 sets, daily range): BP systolic 104–192; BP diastolic 64–114
[~2020-10-08] VITALS: Ht 185.4 cm; Wt 135.7 kg
[~2020-10-08 14:42] MED LIST changes: +METHOCARBAMOL500 M1 PO
[2020-10-08 15:21] LABS: BASO % 0.2 % (0.0-1.0); EOS # 0.2 10*3/uL (0.0-0.4); EOS % 2.2 % (1.0-4.0); HEMATOCRIT 46.3 % (42.0-52.0); LYMPH # 1.1 10*3/uL (1.3-4.4); LYMPH % 12.4 % (27.0-41.0); MEAN CELL VOLUME 87.5 fl (80.0-94.0); MEAN CORPUSCULAR HGB 29.7 pg (27.0-31.0); MEAN CORPUSCULAR HGB CONC 33.9 g/dl (33.0-37.0); MONO # 0.7 10*3/uL (0.1-1.0); MONO % 8.2 % (3.0-9.0); NEUT # 6.6 10*3/uL (2.3-7.9); NEUT % 76.5 % (47.0-73.0); PLATELET COUNT AUTOMATED 232 10*3/uL (130-400); RED BLOOD COUNT 5.29 10*6/uL (4.50-5.90); WHITE BLOOD COUNT 8.6 10*3/uL (4.8-10.8)
[2020-10-08 15:43] LABS: ALBUMIN 3.3 gm/dl (3.1-4.5); ALKALINE PHOSPHATASE 73 U/L (45-117); BUN 12 mg/dl (7-24); CHLORIDE 107 mmol/L (98-107); CREATININE 1.47 mg/dL (0.70-1.30); LIPASE 91 U/L (73-393); POTASSIUM 3.5 mmol/L (3.5-5.1); SGOT/AST 18 IU/L (3-35); SGPT/ALT 27 U/L (12-78); SODIUM 138 mmol/L (136-145); TOTAL PROTEIN 7.7 gm/dL (6.4-8.2)
[2020-10-08 15:44] LABS: TROPONIN I < 0.015 ng/ml (<0.045)
[2020-10-08 17:49] LABS: BILIRUBIN Negative (Negative); BLOOD Negative (Negative); CLARITY Clear (Clear); COLOR Yellow (Yellow); GLUCOSE Negative (Negative); KETONE Negative (Negative); LEUKO ESTERASE Negative (Negative); NITRITE Negative (Negative); PH 7.5 (4.5-8.0); SPECIFIC GRAVITY 1.015 (1.001-1.030)
[2020-10-08 18:03] LABS: BACTERIA TRACE; RBC 0-2 rbc/hpf (0-2); WBC 0-2 wbc/hpf (0-5)
[2020-10-08] MEDS ORDERED: DRIZALMA SPRINK20 MG PO (19:11)
[2020-10-08] MEDS ORDERED: ALLOPURINOL100 MG PO (19:13)
[2020-10-09] VITALS: BP 133/96
[2020-10-09 05:54] LABS: ALKALINE PHOSPHATASE 62 U/L (45-117); BUN 14 mg/dl (7-24); CHLORIDE 110 mmol/L (98-107); POTASSIUM 4.2 mmol/L (3.5-5.1); SGOT/AST 14 IU/L (3-35); SGPT/ALT 23 U/L (12-78); SODIUM 138 mmol/L (136-145); TOTAL PROTEIN 7.1 gm/dL (6.4-8.2)
[2020-10-09 06:22] LABS: BASO % 0.5 % (0.0-1.0); EOS # 0.2 10*3/uL (0.0-0.4); EOS % 3.4 % (1.0-4.0); HEMATOCRIT 44.5 % (42.0-52.0); LYMPH # 1.6 10*3/uL (1.3-4.4); MEAN CELL VOLUME 88.8 fl (80.0-94.0); MEAN CORPUSCULAR HGB 29.7 pg (27.0-31.0); MEAN CORPUSCULAR HGB CONC 33.5 g/dl (33.0-37.0); MONO # 0.7 10*3/uL (0.1-1.0); MONO % 10.1 % (3.0-9.0); NEUT # 3.9 10*3/uL (2.3-7.9); NEUT % 60.8 % (47.0-73.0); PLATELET COUNT AUTOMATED 232 10*3/uL (130-400); RED BLOOD COUNT 5.01 10*6/uL (4.50-5.90); RED CELL DISTRI WIDTH 13.2 % (0-14.5); WHITE BLOOD COUNT 6.5 10*3/uL (4.8-10.8)
[2020-10-09 07:55] VITALS: BP 155/67
[2020-10-09 12:18] VITALS: BP 162/75
== END 2020-10-09 13:14 | disposition left against medical advice (07) | DRG 872 ==
LOC: ED 14:42 → EDHOLD 17:08 → 4E 18:19
PROVIDERS: Family Medicine; ADMIT Internal Medicine; ATTEND Internal Medicine
DX: A41.9 Sepsis, unspecified organism (principal); N17.9 Acute kidney failure, unspecified; R07.9 Chest pain, unspecified; E66.01 Morbid (severe) obesity due to excess calories; F31.9 Bipolar disorder, unspecified; K21.9 Gastro-esophageal reflux disease without esophagitis; E78.2 Mixed hyperlipidemia; F17.210 Nicotine dependence, cigarettes, uncomplicated; G89.29 Other chronic pain; M54.5 Low back pain; F43.10 Post-traumatic stress disorder, unspecified; G20 Parkinson's disease; G40.909 Epilepsy, unspecified, not intractable, without status epilepticus; Z83.3 Family history of diabetes mellitus; Z82.49 Family history of ischemic heart disease and other diseases of the circulatory system; Z80.8 Family history of malignant neoplasm of other organs or systems; Z79.899 Other long term (current) drug therapy; Z68.39 Body mass index [BMI] 39.0-39.9, adult

== ENCOUNTER 2020-10-18 10:29 | Emergency (ER) | payer MEDICARE ==
[~2020-10-18] VITALS: Wt 129.3 kg
[~2020-10-18 10:29] MED LIST changes: +ALLOPURINOL100 MG PO; +DRIZALMA SPRINK20 MG PO
[2020-10-18 10:34] VITALS: BP 183/103
[2020-10-18] MEDS ORDERED: HYDROCODONE-AC1 EAC1 PO (12:38)
== END 2020-10-18 12:43 | disposition home or self-care (01) ==
LOC: ED 10:29
DX: S92.141A Displaced dome fracture of right talus, initial encounter for closed fracture (principal); S93.401A Sprain of unspecified ligament of right ankle, initial encounter; Z88.8 Allergy status to other drugs, medicaments and biological substances; Z91.041 Radiographic dye allergy status; Z88.5 Allergy status to narcotic agent; Z79.899 Other long term (current) drug therapy; X58.XXXA Exposure to other specified factors, initial encounter; Y93.89 Activity, other specified; Y92.89 Other specified places as the place of occurrence of the external cause; Y99.8 Other external cause status

== ENCOUNTER 2020-11-02 09:03 | Emergency (ER) | payer MEDICARE ==
[~2020-11-02 09:03] MED LIST changes: +HYDROCODONE-AC1 EAC1 PO
[2020-11-02 10:55] LABS: BASO % 0.5 % (0.0-1.0); EOS # 0.2 10*3/uL (0.0-0.4); EOS % 3.6 % (1.0-4.0); HEMATOCRIT 44.5 % (42.0-52.0); LYMPH # 1.8 10*3/uL (1.3-4.4); LYMPH % 30.9 % (27.0-41.0); MEAN CELL VOLUME 87.8 fl (80.0-94.0); MEAN CORPUSCULAR HGB 29.8 pg (27.0-31.0); MEAN CORPUSCULAR HGB CONC 33.9 g/dl (33.0-37.0); MEAN PLATELET VOLUME 8.8 fl (9.6-12.3); MONO # 0.7 10*3/uL (0.1-1.0); MONO % 11.6 % (3.0-9.0); NEUT # 3.1 10*3/uL (2.3-7.9); NEUT % 52.9 % (47.0-73.0); PLATELET COUNT AUTOMATED 225 10*3/uL (130-400); RED BLOOD COUNT 5.07 10*6/uL (4.50-5.90); WHITE BLOOD COUNT 5.8 10*3/uL (4.8-10.8)
[2020-11-02 11:02] LABS: BILIRUBIN Negative (Negative); BLOOD Negative (Negative); CLARITY Clear (Clear); COLOR Yellow (Yellow); GLUCOSE Negative (Negative); KETONE Negative (Negative); LEUKO ESTERASE Negative (Negative); NITRITE Negative (Negative); UROBILINOGEN 0.2 E.U./dl (0.0-1.0)
[2020-11-02 11:16] LABS: ALBUMIN 3.2 gm/dl (3.1-4.5); ALKALINE PHOSPHATASE 65 U/L (45-117); BUN 13 mg/dl (7-24); CHLORIDE 111 mmol/L (98-107); CREATININE 1.01 mg/dL (0.70-1.30); POTASSIUM 4.2 mmol/L (3.5-5.1); SGOT/AST 18 IU/L (3-35); SGPT/ALT 24 U/L (12-78); SODIUM 141 mmol/L (136-145); TOTAL PROTEIN 7.3 gm/dL (6.4-8.2)
[2020-11-02 11:17] LABS: TROPONIN I < 0.015 ng/ml (<0.045)
[2020-11-02 11:43] VITALS: BP 174/114
[2020-11-02] MEDS ORDERED: TYLENOL325 M1 PO (12:46)
[2020-11-02] MEDS ORDERED: CYCLOBENZAPRINE10 MG PO (12:46)
[2020-11-03] MEDS ORDERED: PREDNISONE20 M1 PO (19:53)
== END 2020-11-02 13:05 | disposition home or self-care (01) ==
LOC: ED 09:03
PROVIDERS: Emergency Medicine
DX: M25.511 Pain in right shoulder (principal); E04.1 Nontoxic single thyroid nodule; F31.9 Bipolar disorder, unspecified; I10 Essential (primary) hypertension; Z88.6 Allergy status to analgesic agent; Z88.8 Allergy status to other drugs, medicaments and biological substances; Z79.899 Other long term (current) drug therapy; Z88.5 Allergy status to narcotic agent; Z91.041 Radiographic dye allergy status; Z98.890 Other specified postprocedural states

== ENCOUNTER 2020-11-03 18:04 | Emergency (ER) | payer MEDICARE ==
[~2020-11-03] VITALS: Wt 131.1 kg
[~2020-11-03 18:04] MED LIST changes: +TYLENOL325 M1 PO
[2020-11-03 18:08] VITALS: BP 168/90
[2020-11-03] MEDS ORDERED: PREDNISONE20 M1 PO (19:53)
== END 2020-11-03 21:04 | disposition home or self-care (01) ==
LOC: ED 18:04
DX: M77.8 Other enthesopathies, not elsewhere classified (principal); M25.531 Pain in right wrist; F17.200 Nicotine dependence, unspecified, uncomplicated; Z98.890 Other specified postprocedural states; Z79.899 Other long term (current) drug therapy; Z88.5 Allergy status to narcotic agent; Z88.6 Allergy status to analgesic agent; Z91.041 Radiographic dye allergy status

== ENCOUNTER 2021-02-05 09:30 | Emergency (ER) | payer MEDICARE ==
[~2021-02-05] VITALS: Wt 130.2 kg
[2021-02-05 09:32] VITALS: BP 157/106
[2021-02-05 09:48] LABS: EOS % 1.1 % (1.0-4.0); HEMATOCRIT 45.9 % (42.0-52.0); MEAN CELL VOLUME 87.4 fl (80.0-94.0); MEAN CORPUSCULAR HGB 29.1 pg (27.0-31.0); MEAN CORPUSCULAR HGB CONC 33.3 g/dl (33.0-37.0); MONO # 0.4 10*3/uL (0.1-1.0); MONO % 14.7 % (3.0-9.0); NEUT # 1.3 10*3/uL (2.3-7.9); NEUT % 47.8 % (47.0-73.0); PLATELET COUNT AUTOMATED 143 10*3/uL (130-400); RED BLOOD COUNT 5.25 10*6/uL (4.50-5.90); RED CELL DISTRI WIDTH 13.2 % (0-14.5); WHITE BLOOD COUNT 2.7 10*3/uL (4.8-10.8)
[2021-02-05 10:02] LABS: ALBUMIN 3.4 gm/dl (3.1-4.5); ALKALINE PHOSPHATASE 65 U/L (45-117); BUN 13 mg/dl (7-24); CHLORIDE 108 mmol/L (98-107); CREATININE 1.15 mg/dL (0.70-1.30); SGOT/AST 31 IU/L (3-35); SGPT/ALT 36 U/L (12-78); SODIUM 138 mmol/L (136-145); TOTAL PROTEIN 7.6 gm/dL (6.4-8.2)
[2021-02-05] MEDS ORDERED: PREDNISONE50 MG PO (12:08)
== END 2021-02-05 12:15 | disposition home or self-care (01) ==
LOC: ED 09:30
PROVIDERS: Student in an Organized Health Care Education/Training Program
DX: G89.29 Other chronic pain (principal); M54.5 Low back pain; R51.9 Headache, unspecified; H53.8 Other visual disturbances; F17.200 Nicotine dependence, unspecified, uncomplicated; Z88.8 Allergy status to other drugs, medicaments and biological substances; Z88.6 Allergy status to analgesic agent; Z91.041 Radiographic dye allergy status; Z79.899 Other long term (current) drug therapy; W19.XXXA Unspecified fall, initial encounter; Y93.89 Activity, other specified; Y92.89 Other specified places as the place of occurrence of the external cause; Y99.8 Other external cause status

== ENCOUNTER 2021-03-22 15:04 | Emergency (ER) | payer MEDICARE ==
[~2021-03-22] VITALS: Ht 175.2 cm; Wt 127.5 kg
[~2021-03-22 15:04] MED LIST changes: +PREDNISONE50 MG PO
[2021-03-22 15:54] LABS: ACT PARTIAL THROMBO TIME 27.6 SECONDS (20.0-32.1)
[2021-03-22 15:57] LABS: ALBUMIN 3.3 gm/dl (3.1-4.5); ALKALINE PHOSPHATASE 64 U/L (45-117); BASO % 0.4 % (0.0-1.0); BUN 23 mg/dl (7-24); CHLORIDE 111 mmol/L (98-107); CREATININE 2.04 mg/dL (0.70-1.30); EOS # 0.2 10*3/uL (0.0-0.4); HEMATOCRIT 44.8 % (42.0-52.0); LYMPH # 1.5 10*3/uL (1.3-4.4); LYMPH % 21.2 % (27.0-41.0); MEAN CELL VOLUME 86.8 fl (80.0-94.0); MEAN CORPUSCULAR HGB 29.7 pg (27.0-31.0); MEAN CORPUSCULAR HGB CONC 34.2 g/dl (33.0-37.0); MONO # 0.7 10*3/uL (0.1-1.0); MONO % 9.7 % (3.0-9.0); NEUT # 4.5 10*3/uL (2.3-7.9); PLATELET COUNT AUTOMATED 272 10*3/uL (130-400); POTASSIUM 4.6 mmol/L (3.5-5.1); RED BLOOD COUNT 5.16 10*6/uL (4.50-5.90); RED CELL DISTRI WIDTH 13.9 % (0-14.5); SGOT/AST 20 IU/L (3-35); SGPT/ALT 17 U/L (12-78); SODIUM 140 mmol/L (136-145); TOTAL PROTEIN 7.5 gm/dL (6.4-8.2)
[2021-03-22 15:58] LABS: TROPONIN I < 0.015 ng/ml (<0.045)
[2021-03-22 20:29] LABS: BILIRUBIN Negative (Negative); BLOOD Negative (Negative); CLARITY Clear (Clear); COLOR Yellow (Yellow); GLUCOSE Negative (Negative); KETONE Negative (Negative); LEUKO ESTERASE Negative (Negative); NITRITE Negative (Negative); UROBILINOGEN 0.2 E.U./dl (0.0-1.0)
[2021-03-22 20:36] LABS: URINE AMPHETAMINES < 1000 (1000ng/ml); URINE BARBITURATES < 200 (200ng/ml); URINE BENZODIAZEPINES < 200 (200ng/ml); URINE CANNABINOIDS (THC) > 50 (50ng/ml); URINE COCAINE < 300 (300ng/ml); URINE METHADONE < 300 (300ng/ml); URINE OPIATES < 300 (300ng/ml)
[2021-03-22 20:38] LABS: URINE PHENCYCLIDINE < 25 (25ng/ml)
[2021-03-22 20:49] LABS: BACTERIA TRACE
[2021-03-23 06:24] VITALS: BP 97/57
== END 2021-03-23 07:40 | disposition home or self-care (01) ==
LOC: ED 15:04
PROVIDERS: Emergency Medicine; Internal Medicine
DX: R55 Syncope and collapse (principal); T50.B95A Adverse effect of other viral vaccines, initial encounter; R79.82 Elevated C-reactive protein (CRP); N18.32 Chronic kidney disease, stage 3b; F17.200 Nicotine dependence, unspecified, uncomplicated; Z88.8 Allergy status to other drugs, medicaments and biological substances; Z88.6 Allergy status to analgesic agent; Z91.041 Radiographic dye allergy status; Z79.899 Other long term (current) drug therapy; Y92.89 Other specified places as the place of occurrence of the external cause

== ENCOUNTER 2021-04-09 09:23 | Emergency (ER) | payer MEDICARE ==
[~2021-04-09] VITALS: Ht 182.8 cm; Wt 129.7 kg
[2021-04-09 09:48] VITALS: BP 159/119
[2021-04-09 13:59] LABS: BASO % 0.3 % (0.0-1.0); EOS # 0.3 10*3/uL (0.0-0.4); HEMATOCRIT 45.6 % (42.0-52.0); LYMPH # 1.7 10*3/uL (1.3-4.4); LYMPH % 26.4 % (27.0-41.0); MEAN CELL VOLUME 86.4 fl (80.0-94.0); MEAN CORPUSCULAR HGB 30.1 pg (27.0-31.0); MEAN CORPUSCULAR HGB CONC 34.9 g/dl (33.0-37.0); MEAN PLATELET VOLUME 8.7 fl (9.6-12.3); MONO # 0.7 10*3/uL (0.1-1.0); MONO % 9.9 % (3.0-9.0); NEUT # 3.9 10*3/uL (2.3-7.9); NEUT % 58.9 % (47.0-73.0); PLATELET COUNT AUTOMATED 215 10*3/uL (130-400); RED BLOOD COUNT 5.28 10*6/uL (4.50-5.90); RED CELL DISTRI WIDTH 13.3 % (0-14.5); WHITE BLOOD COUNT 6.6 10*3/uL (4.8-10.8)
[2021-04-09 14:12] LABS: BUN 20 mg/dl (7-24); CHLORIDE 109 mmol/L (98-107); CREATININE 0.99 mg/dL (0.70-1.30); POTASSIUM 4.1 mmol/L (3.5-5.1); SODIUM 138 mmol/L (136-145)
== END 2021-04-09 14:21 | disposition home or self-care (01) ==
LOC: ED 09:23
PROVIDERS: Emergency Medicine
DX: M25.562 Pain in left knee (principal); I10 Essential (primary) hypertension; K21.9 Gastro-esophageal reflux disease without esophagitis; E78.5 Hyperlipidemia, unspecified; G40.909 Epilepsy, unspecified, not intractable, without status epilepticus; Z88.6 Allergy status to analgesic agent; Z91.041 Radiographic dye allergy status; Z88.8 Allergy status to other drugs, medicaments and biological substances; Z79.899 Other long term (current) drug therapy; Z86.73 Personal history of transient ischemic attack (TIA), and cerebral infarction without residual deficits

== ENCOUNTER 2021-05-12 07:03 | Emergency (ER) | payer MEDICARE ==
[~2021-05-12] VITALS: Ht 175.2 cm; Wt 123.8 kg
[2021-05-12 07:09] VITALS: BP 186/117
[2021-05-12] MEDS ORDERED: MITIGARE0.6 MG PO (07:35)
== END 2021-05-12 07:47 | disposition home or self-care (01) ==
LOC: ED 07:03
DX: M10.9 Gout, unspecified (principal); K21.9 Gastro-esophageal reflux disease without esophagitis; E78.5 Hyperlipidemia, unspecified; G40.909 Epilepsy, unspecified, not intractable, without status epilepticus; I12.9 Hypertensive chronic kidney disease with stage 1 through stage 4 chronic kidney disease, or unspecified chronic kidney disease; N18.32 Chronic kidney disease, stage 3b

== ENCOUNTER 2022-05-03 12:20 | Emergency (ER) | payer OTHER ==
[~2022-05-03] VITALS: Ht 175.2 cm; Wt 121.6 kg
[~2022-05-03 12:20] MED LIST changes: +'CLONIDINE0.1 MG PO; +ASPIRIN CHILDRE81 MG PO; +CELECOXIB200 M1 PO; +GABAPENTIN600 MG PO; +INDERAL LA160 M1 PO; +LOSARTAN POTAS100 M1 PO; +LOSARTAN-HCTZ1 EAC1 PO; +MITIGARE0.6 MG PO; +PLAVIX75 M1 PO; +SINEMET 25-1001 EACH PO
[2022-05-03 12:29] VITALS: BP 172/98
[2022-05-03 13:04] LABS: BASO % 0.5 % (0.0-1.0); EOS # 0.3 10*3/uL (0.0-0.4); HEMATOCRIT 42.2 % (42.0-52.0); LYMPH # 1.9 10*3/uL (1.3-4.4); LYMPH % 30.9 % (27.0-41.0); MEAN CELL VOLUME 86.5 fl (80.0-94.0); MEAN CORPUSCULAR HGB 30.5 pg (27.0-31.0); MEAN CORPUSCULAR HGB CONC 35.3 g/dl (33.0-37.0); MEAN PLATELET VOLUME 8.8 fl (9.6-12.3); MONO # 0.5 10*3/uL (0.1-1.0); MONO % 7.5 % (3.0-9.0); NEUT # 3.6 10*3/uL (2.3-7.9); NEUT % 56.5 % (47.0-73.0); PLATELET COUNT AUTOMATED 221 10*3/uL (130-400); RED BLOOD COUNT 4.88 10*6/uL (4.50-5.90); RED CELL DISTRI WIDTH 14.2 % (0-14.5); WHITE BLOOD COUNT 6.3 10*3/uL (4.8-10.8)
[2022-05-03 13:15] LABS: ACT PARTIAL THROMBO TIME 26.8 SECONDS (20.0-32.1); INTERNATIONAL NORM RATIO 0.9 (2.0-3.5)
[2022-05-03 13:21] LABS: ALKALINE PHOSPHATASE 58 U/L (46-116); BUN 16 mg/dl (9-23); CHLORIDE 108 mmol/L (98-107); CREATININE 1.05 mg/dL (0.70-1.30); POTASSIUM 4.2 mmol/L (3.4-5.1); SGPT/ALT 18 U/L (10-49); SODIUM 138 mmol/L (136-145); TOTAL PROTEIN 7.4 gm/dL (6.0-8.0)
== END 2022-05-03 15:01 | disposition home or self-care (01) ==
LOC: ED 12:20
PROVIDERS: Emergency Medicine
DX: I63.9 Cerebral infarction, unspecified (principal); Z88.8 Allergy status to other drugs, medicaments and biological substances; Z79.899 Other long term (current) drug therapy; Z87.891 Personal history of nicotine dependence

== ENCOUNTER 2022-07-22 08:40 | Emergency (ER) | payer OTHER ==
[~2022-07-22] VITALS: Ht 175.2 cm; Wt 129.7 kg
[2022-07-22 08:50] VITALS: BP 170/121
[2022-07-22] MEDS ORDERED: HYDROCODONE-AC1 EAC1 PO (09:47)
== END 2022-07-22 10:09 | disposition home or self-care (01) ==
LOC: ED 08:40
DX: M25.511 Pain in right shoulder (principal); M25.521 Pain in right elbow; I10 Essential (primary) hypertension; K21.9 Gastro-esophageal reflux disease without esophagitis; G43.909 Migraine, unspecified, not intractable, without status migrainosus; F32.A Depression, unspecified; Z88.8 Allergy status to other drugs, medicaments and biological substances; Z88.5 Allergy status to narcotic agent; Z98.890 Other specified postprocedural states; Z91.041 Radiographic dye allergy status; Z88.6 Allergy status to analgesic agent

== ENCOUNTER 2022-10-11 14:29 | Emergency (ER) | payer OTHER ==
[~2022-10-11] VITALS: Wt 121.6 kg
[2022-10-11 14:54] VITALS: BP 139/99
== END 2022-10-11 17:28 | disposition home or self-care (01) ==
LOC: ED 14:29
DX: S50.01XA Contusion of right elbow, initial encounter (principal); S40.011A Contusion of right shoulder, initial encounter; S09.90XA Unspecified injury of head, initial encounter; F17.200 Nicotine dependence, unspecified, uncomplicated; Z88.8 Allergy status to other drugs, medicaments and biological substances; Z91.041 Radiographic dye allergy status; Z79.82 Long term (current) use of aspirin; Z79.899 Other long term (current) drug therapy; Z98.890 Other specified postprocedural states; W01.198A Fall on same level from slipping, tripping and stumbling with subsequent striking against other object, initial encounter; Y93.89 Activity, other specified; Y92.89 Other specified places as the place of occurrence of the external cause; Y99.8 Other external cause status

== ENCOUNTER 2022-10-13 15:12 | Emergency (ER) | payer OTHER ==
[~2022-10-13] VITALS: Ht 177.8 cm; Wt 113.4 kg
[2022-10-13 16:08] VITALS: BP 160/96
[2022-10-13 18:44] LABS: BASO % 0.4 % (0.0-1.0); EOS # 0.2 10*3/uL (0.0-0.4); EOS % 2.5 % (1.0-4.0); HEMATOCRIT 44.5 % (42.0-52.0); LYMPH % 24.5 % (27.0-41.0); MEAN CELL VOLUME 86.9 fl (80.0-94.0); MEAN CORPUSCULAR HGB 29.7 pg (27.0-31.0); MEAN CORPUSCULAR HGB CONC 34.2 g/dl (33.0-37.0); MEAN PLATELET VOLUME 8.8 fl (9.6-12.3); MONO # 0.7 10*3/uL (0.1-1.0); MONO % 9.1 % (3.0-9.0); NEUT # 5.1 10*3/uL (2.3-7.9); NEUT % 63.1 % (47.0-73.0); PLATELET COUNT AUTOMATED 245 10*3/uL (130-400); RED BLOOD COUNT 5.12 10*6/uL (4.50-5.90); RED CELL DISTRI WIDTH 13.2 % (0-14.5)
[2022-10-13 18:55] LABS: ACT PARTIAL THROMBO TIME 30.1 SECONDS (20.0-32.1)
[2022-10-13 19:06] LABS: ALKALINE PHOSPHATASE 63 U/L (46-116); BUN 9 mg/dl (9-23); CHLORIDE 107 mmol/L (98-107); POTASSIUM 3.9 mmol/L (3.4-5.1); SGPT/ALT 12 U/L (10-49); TOTAL PROTEIN 7.4 gm/dL (6.0-8.0); URIC ACID 8.9 mg/dL (3.7-9.2)
== END 2022-10-13 22:30 | disposition home or self-care (01) ==
LOC: ED 15:12
PROVIDERS: Emergency Medicine; Internal Medicine
DX: S46.911A Strain of unspecified muscle, fascia and tendon at shoulder and upper arm level, right arm, initial encounter (principal); S50.01XA Contusion of right elbow, initial encounter; F17.200 Nicotine dependence, unspecified, uncomplicated; Z88.8 Allergy status to other drugs, medicaments and biological substances; Z88.6 Allergy status to analgesic agent; Z91.041 Radiographic dye allergy status; Z79.82 Long term (current) use of aspirin; Z79.899 Other long term (current) drug therapy; W18.09XA Striking against other object with subsequent fall, initial encounter; Y93.89 Activity, other specified; Y92.89 Other specified places as the place of occurrence of the external cause; Y99.8 Other external cause status

== ENCOUNTER 2022-10-17 05:26 | Emergency (ER) | payer OTHER ==
[~2022-10-17] VITALS: Ht 167.6 cm; Wt 127.0 kg
[2022-10-17 05:30] VITALS: BP 188/98
== END 2022-10-17 06:54 | disposition home or self-care (01) ==
LOC: ED 05:26
DX: S63.501A Unspecified sprain of right wrist, initial encounter (principal); S63.91XA Sprain of unspecified part of right wrist and hand, initial encounter; I10 Essential (primary) hypertension; K21.9 Gastro-esophageal reflux disease without esophagitis; G43.909 Migraine, unspecified, not intractable, without status migrainosus; F32.A Depression, unspecified; Z88.5 Allergy status to narcotic agent; Z88.8 Allergy status to other drugs, medicaments and biological substances; Z91.041 Radiographic dye allergy status; Z98.890 Other specified postprocedural states; Z72.0 Tobacco use; W19.XXXA Unspecified fall, initial encounter; Y93.89 Activity, other specified; Y92.89 Other specified places as the place of occurrence of the external cause; Y99.8 Other external cause status

== ENCOUNTER 2022-11-06 11:07 | Emergency (ER) | payer OTHER ==
[~2022-11-06] VITALS: Ht 175.2 cm; Wt 121.6 kg
[2022-11-06 11:26] VITALS: BP 136/67
[2022-11-06 11:59] LABS: BASO % 0.2 % (0.0-1.0); EOS # 0.1 10*3/uL (0.0-0.4); EOS % 1.6 % (1.0-4.0); HEMATOCRIT 45.1 % (42.0-52.0); LYMPH # 0.8 10*3/uL (1.3-4.4); LYMPH % 14.4 % (27.0-41.0); MEAN CELL VOLUME 84.6 fl (80.0-94.0); MEAN CORPUSCULAR HGB 29.1 pg (27.0-31.0); MEAN CORPUSCULAR HGB CONC 34.4 g/dl (33.0-37.0); MEAN PLATELET VOLUME 9.1 fl (9.6-12.3); MONO # 0.6 10*3/uL (0.1-1.0); MONO % 11.1 % (3.0-9.0); NEUT % 72.3 % (47.0-73.0); PLATELET COUNT AUTOMATED 202 10*3/uL (130-400); RED BLOOD COUNT 5.33 10*6/uL (4.50-5.90); WHITE BLOOD COUNT 5.5 10*3/uL (4.8-10.8)
[2022-11-06 12:26] LABS: ALKALINE PHOSPHATASE 69 U/L (46-116); BUN 10 mg/dl (9-23); CHLORIDE 104 mmol/L (98-107); LIPASE 41 U/L (12-53); POTASSIUM 3.8 mmol/L (3.4-5.1); SGPT/ALT 27 U/L (10-49); TOTAL PROTEIN 7.9 gm/dL (6.0-8.0)
[2022-11-06] MEDS ORDERED: CIPRO500 MG PO (13:12)
[2022-11-06] MEDS ORDERED: HYDROCODONE-AC1 EAC1 PO (13:12)
== END 2022-11-06 13:28 | disposition home or self-care (01) ==
LOC: ED 11:07
PROVIDERS: Emergency Medicine
DX: N45.1 Epididymitis (principal); R10.30 Lower abdominal pain, unspecified; R11.2 Nausea with vomiting, unspecified; I10 Essential (primary) hypertension; K21.9 Gastro-esophageal reflux disease without esophagitis; G43.909 Migraine, unspecified, not intractable, without status migrainosus; F32.A Depression, unspecified; Z88.5 Allergy status to narcotic agent; Z91.041 Radiographic dye allergy status; Z88.6 Allergy status to analgesic agent; Z88.8 Allergy status to other drugs, medicaments and biological substances; Z98.890 Other specified postprocedural states; Z72.0 Tobacco use

== ENCOUNTER 2023-01-25 14:34 | Emergency (ER) | payer OTHER ==
[~2023-01-25] VITALS: Ht 175.2 cm; Wt 119.7 kg
[2023-01-25] MEDS ORDERED: MITIGARE0.6 MG PO (15:15)
[2023-01-25] MEDS ORDERED: LOSARTAN POTAS100 M1 PO (15:15)
[2023-01-25] MEDS ORDERED: CARBIDOPA-LEVO1 EAC2 PO (15:16)
[2023-01-25] MEDS ORDERED: SEROQUEL300 MG PO (15:17)
[2023-01-25 15:18] LABS: BASO % 0.4 % (0.0-1.0); EOS # 0.2 10*3/uL (0.0-0.4); EOS % 3.4 % (1.0-4.0); LYMPH # 2.1 10*3/uL (1.3-4.4); MEAN CELL VOLUME 85.4 fl (80.0-94.0); MEAN PLATELET VOLUME 8.8 fl (9.6-12.3); MONO # 0.7 10*3/uL (0.1-1.0); NEUT % 56.9 % (47.0-73.0); PLATELET COUNT AUTOMATED 237 10*3/uL (130-400); RED BLOOD COUNT 5.27 10*6/uL (4.50-5.90); RED CELL DISTRI WIDTH 14.6 % (0-14.5); WHITE BLOOD COUNT 7.1 10*3/uL (4.8-10.8)
[2023-01-25 15:29] LABS: ACT PARTIAL THROMBO TIME 27.9 SECONDS (20.0-32.1)
[2023-01-25 15:41] LABS: ALKALINE PHOSPHATASE 67 U/L (46-116); BUN 11 mg/dl (9-23); CHLORIDE 106 mmol/L (98-107); LIPASE 30 U/L (12-53); POTASSIUM 3.7 mmol/L (3.4-5.1); SGPT/ALT 14 U/L (10-49); TOTAL PROTEIN 7.2 gm/dL (6.0-8.0)
[2023-01-25 17:35] VITALS: BP 115/82
== END 2023-01-25 20:11 | disposition home or self-care (01) ==
LOC: ED 14:34
PROVIDERS: Emergency Medicine
DX: I10 Essential (primary) hypertension (principal); K21.9 Gastro-esophageal reflux disease without esophagitis; G43.909 Migraine, unspecified, not intractable, without status migrainosus; F32.A Depression, unspecified; Z88.5 Allergy status to narcotic agent; Z91.041 Radiographic dye allergy status; Z88.6 Allergy status to analgesic agent; Z98.890 Other specified postprocedural states; Z72.0 Tobacco use; F14.10 Cocaine abuse, uncomplicated

== ENCOUNTER 2025-03-02 02:22 | Emergency (ER) | payer OTHER ==
[~2025-03-02] VITALS: Ht 175.2 cm; Wt 147.1 kg
[~2025-03-02 02:22] MED LIST changes: +CARBIDOPA-LEVO1 EAC2 PO; +SEROQUEL300 MG PO; +VITAMIN D325 MCG PO
[2025-03-02 04:17] VITALS: BP 155/89
== END 2025-03-02 04:22 | disposition home or self-care (01) ==
LOC: ED 02:22
DX: M79.661 Pain in right lower leg (principal); R55 Syncope and collapse; I10 Essential (primary) hypertension; K21.9 Gastro-esophageal reflux disease without esophagitis; G43.909 Migraine, unspecified, not intractable, without status migrainosus; F32.A Depression, unspecified; Z98.890 Other specified postprocedural states; Z88.5 Allergy status to narcotic agent; Z88.8 Allergy status to other drugs, medicaments and biological substances